=== PATIENT | female | born 1960 ===

== ENCOUNTER 2017-05-28 09:49 | Emergency (ER) | payer MEDICARE ==
[2017-05-28 09:56] VITALS: RESP 18; O2SAT 96
[2017-05-28] MEDS ORDERED: Tmp-Smz 800 mg-160 mg DS Tab PO SCH (10:30)
--- NOTE | 2017-05-28 10:37 | C.PDOC ---
History Of Present Illness Jo Ann Renee, a 56 year old female, who has a past medical history of diabetes presents to the ED with a scratch on the back of her right calf. The patient states that the scratch has been draining yellow fluid. She states that she is currently taking insulin for diabetes. Denies fever. Time Seen by Provider: 05/28/17 10:07 Chief Complaint (Nursing): Abnormal Skin Integrity History Per: Patient History/Exam Limitations: no limitations Onset/Duration Of Symptoms: Days Quality Of Symptoms: Draining (draining yellow fluid.) Past Medical History Reviewed: Historical Data, Nursing Documentation, Vital Signs Vital Signs: Last Vital Signs Temp 97.8 F 05/28/17 11:00 Pulse 77 05/28/17 11:00 Resp 18 05/28/17 11:00 BP 134/83 05/28/17 11:00 Pulse Ox 96 05/28/17 17:06 - Medical History PMH: Anemia, Anxiety, Arthritis, Asthma, COPD, Depression, Diabetes (type I and II, associated diabetic neuropathy), Gastritis, HTN, Hypercholesterolemia, Hyperlipidemia, Hypothyroidism, Malignancy (Thyroid), Rheumatoid Arthritis, Sleep Apnea Denies: HIV, Chronic Kidney Disease Surgical History: Coronary Stent Other Surgeries: Toe amputations due to diabetes. - [facility] Procedures AMPUTATION THROUGH FOOT (05/13/15) ANGIOPLASTY OF OTHER NON-CORONARY VESSEL(S) (03/25/15) ATTACH PEDICLE GRAFT NEC (05/13/15) CONTRAST ARTERIOGRAM-LEG (03/25/15) DETACHMENT AT LEFT FOOT, PARTIAL 1ST RAY, OPEN APPROACH (11/04/15) DETACHMENT AT LEFT FOOT, PARTIAL 2ND RAY, OPEN APPROACH (11/04/15) DETACHMENT AT LEFT FOOT, PARTIAL 3RD RAY, OPEN APPROACH (11/04/15) DETACHMENT AT LEFT FOOT, PARTIAL 4TH RAY, OPEN APPROACH (11/04/15) DETACHMENT AT LEFT FOOT, PARTIAL 5TH RAY, OPEN APPROACH (11/04/15) EXCISION OF LEFT FOOT SKIN, EXTERNAL APPROACH (07/04/15) EXCISION OF R FOOT SUBCU/FASCIA, OPEN APPROACH (07/04/15) EXERCISE TRMT MUSCULOSK LOW BACK/LE W ASSIST EQUIP (10/28/15) FLUOROSCOPY OF AORTA AND BILATERAL LOWER EXTREMITY ARTERIES (07/04/15) FLUOROSCOPY OF SUP VENA CAVA USING OTH CONTRAST, GUIDANCE (09/28/15) FLUOROSCOPY OF SUPERIOR VENA CAVA, GUIDANCE (11/04/15) GAIT TRAINING/AMBULAT TREATMENT USING ASSIST EQUIPMENT (10/28/15) GROOMING/PERSONAL HYGIENE TREATMENT USING ASSIST EQUIPMENT (10/28/15) INJECT/INFUSE NEC (07/01/15) INSERTION OF INFUSION DEV INTO SUP VENA CAVA, PERC APPROACH (11/04/15) INTRODUCE OTH ANTI-INFECT IN CENTRAL VEIN, PERC (11/04/15) INTRODUCE REGIONAL ANESTH IN PERIPH NRV, PLEXI, PERC (07/04/15) INTRODUCTION OF SERUM/TOX/VACCINE INTO MUSCLE, PERC APPROACH (09/28/15) OCCUPATIONAL THERAPY (05/20/15) PACKED CELL TRANSFUSION (05/13/15) PHYSICAL THERAPY NEC (05/20/15) PROCEDURE ON SINGLE VESSEL (03/25/15) REPLACE R FOOT SKIN W NONAUT SUB, FULL THICK, 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 Constitutional: Negative for: Fever Musculoskeletal: Positive for: Other (scratch to the back of right calf that is draining yellow fluid) Physical Exam - Physical Exam Appears: Well (superficial abrasion right lower calf, (-) erythema, (-) drainage ), Non-toxic, No Acute Distress Skin: Normal Color, Warm, Dry, No Rash, Other (abrasion right lower l) Head: Atraumatic, Normacephalic Eye(s): bilateral: Normal Inspection, PERRL, EOMI Nose: Normal Oral Mucosa: Moist Tongue: Normal Appearing Lips: Normal Appearing Teeth: Normal Dentition Gingiva: Normal Appearing Throat: Normal Neck: Normal, Normal ROM, Supple Chest: Symmetrical, No Deformity, No Tenderness Cardiovascular: Rhythm Regular, No Murmur Respiratory: Normal Breath Sounds, No Rhonchi, No Wheezing Gastrointestinal/Abdominal: Normal Exam, Bowel Sounds, Soft, No Tenderness, No Mass, No Guarding, No Rebound Back: Normal Inspection, No CVA Tenderness Extremity: Normal ROM, No Tenderness, No Deformity, No Swelling, Other (3cm superficial abrasion to right calf; no erythema or sign of infection; no drainage.) Neurological/Psych: Oriented x3, Normal Speech, Normal Cognition Gait: Steady ED Course And Treatment O2 Sat by Pulse Oximetry: 96 (RA) Pulse Ox Interpretation: Normal Progress Note: Treated with bactrim DS x1. Advised to follow up for wound check in 2 days Reassessment Condition: Unchanged Medical Decision Making Medical Decision Makin Initial Impression: 46 year old female presenting with scratch to the back of right leg Initial Plan: * Bactrim DS 1 tab PO * Glucose, Blood, POC * Reevaluation Levaquin and penicillin given Disposition Counseled Patient/Family Regarding: Diagnosis, Need For Followup, Rx Given - Disposition Referrals: Gi Badillo MD [Medical Doctor] - Disposition: HOME/ ROUTINE Disposition Time: 11:10 Condition: STABLE Additional Instructions: Follow up with PMD for further evaluation Return to ED if any increase symptoms Prescriptions: Sulfamethoxazole/Trimethoprim [Bactrim DS 800 mg-160 mg] 1 tab PO BID #14 tab Instructions: Abrasion (ED) Forms: [employer] (Irish) - POA Present On Arrival: None - Clinical Impression Clinical Impression: Abrasion, Diabetes - Scribe Statement The provider has reviewed the documentation as recorded by the Scribe Ginna Soliman All medical record entries made by the Lisaibe were at my direction and personally dictated by me. I have reviewed the chart and agree that the record accurately reflects my personal performance of the history, physical exam, medical decision making, and the department course for this patient. I have also personally directed, reviewed, and agree with the discharge instructions and disposition.
[2017-05-28] MEDS ORDERED: Tmp-Smz 800 mg-160 mg DS Tab ONE (10:57)
[2017-05-28 11:01] VITALS: BP 134/83; PULSE 77; TEMP 97.8
== END 2017-05-28 11:17 | disposition home or self-care (01) ==
LOC: C.ER 09:49
DX: S80.811A Abrasion, right lower leg, initial encounter (principal); X58.XXXA Exposure to other specified factors, initial encounter; E11.9 Type 2 diabetes mellitus without complications; Z79.4 Long term (current) use of insulin

== ENCOUNTER 2017-08-12 14:23 | Emergency (ER) | payer MEDICARE ==
[2017-08-12 14:42] VITALS: RESP 18; TEMP 98.1
[2017-08-12] MEDS ORDERED: Sodium Chloride 0.9% 1,000 ML IV STA (15:05)
--- NOTE | 2017-08-12 15:06 | C.PDOC ---
History Of Present Illness 56 y/o F c PMHx DM, anemia, COPD, HTN, HLD, hypothyroidism, RA p/w subjective fevers/chills, nausea, NBNB vomiting, sneezing, nonbloody diarrhea x 2 days. Notes received flu shot 6 days ago, had a similar reaction last year after influenza vaccine. Denies cough, dyspnea, abdominal pain, body aches, dysuria, back pain, rash. No recent travel, antibiotics, or camping/hiking. Time Seen by Provider: 08/12/17 14:59 Chief Complaint (Nursing): Flu-like Symptoms Past Medical History Vital Signs: Last Vital Signs Temp 98.1 F 08/12/17 14:30 Pulse 89 08/12/17 16:36 Resp 18 08/12/17 16:36 BP 155/86 H 08/12/17 16:36 Pulse Ox 97 08/12/17 16:36 - Medical History PMH: Anemia, Anxiety, Arthritis, Asthma, COPD, Depression, Diabetes (type I and II, associated diabetic neuropathy), Gastritis, HTN, Hypercholesterolemia, Hyperlipidemia, Hypothyroidism, Malignancy (Thyroid), Rheumatoid Arthritis, Sleep Apnea Denies: HIV, Chronic Kidney Disease Surgical History: Coronary Stent - [facility] Procedures AMPUTATION THROUGH FOOT (05/13/15) ANGIOPLASTY OF OTHER NON-CORONARY VESSEL(S) (03/25/15) ATTACH PEDICLE GRAFT NEC (05/13/15) CONTRAST ARTERIOGRAM-LEG (03/25/15) DETACHMENT AT LEFT FOOT, PARTIAL 1ST RAY, OPEN APPROACH (11/04/15) DETACHMENT AT LEFT FOOT, PARTIAL 2ND RAY, OPEN APPROACH (11/04/15) DETACHMENT AT LEFT FOOT, PARTIAL 3RD RAY, OPEN APPROACH (11/04/15) DETACHMENT AT LEFT FOOT, PARTIAL 4TH RAY, OPEN APPROACH (11/04/15) DETACHMENT AT LEFT FOOT, PARTIAL 5TH RAY, OPEN APPROACH (11/04/15) EXCISION OF LEFT FOOT SKIN, EXTERNAL APPROACH (07/04/15) EXCISION OF R FOOT SUBCU/FASCIA, OPEN APPROACH (07/04/15) EXERCISE TRMT MUSCULOSK LOW BACK/LE W ASSIST EQUIP (10/28/15) FLUOROSCOPY OF AORTA AND BILATERAL LOWER EXTREMITY ARTERIES (07/04/15) FLUOROSCOPY OF SUP VENA CAVA USING OTH CONTRAST, GUIDANCE (09/28/15) FLUOROSCOPY OF SUPERIOR VENA CAVA, GUIDANCE (11/04/15) GAIT TRAINING/AMBULAT TREATMENT USING ASSIST EQUIPMENT (10/28/15) GROOMING/PERSONAL HYGIENE TREATMENT USING ASSIST EQUIPMENT (10/28/15) INJECT/INFUSE NEC (07/01/15) INSERTION OF INFUSION DEV INTO SUP VENA CAVA, PERC APPROACH (11/04/15) INTRODUCE OTH ANTI-INFECT IN CENTRAL VEIN, PERC (11/04/15) INTRODUCE REGIONAL ANESTH IN PERIPH NRV, PLEXI, PERC (07/04/15) INTRODUCTION OF SERUM/TOX/VACCINE INTO MUSCLE, PERC APPROACH (09/28/15) OCCUPATIONAL THERAPY (05/20/15) PACKED CELL TRANSFUSION (05/13/15) PHYSICAL THERAPY NEC (05/20/15) PROCEDURE ON SINGLE VESSEL (03/25/15) REPLACE R FOOT SKIN W NONAUT SUB, FULL THICK, 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 Cardiovascular: Negative for: Chest Pain Respiratory: Negative for: Shortness of Breath Physical Exam - Physical Exam Additional Physical Exam Comments: Constitutional: No acute distress. Head: Normocephalic. Atraumatic. Eyes: PERRL. ENT: Moist mucous membranes. Neck: Supple. Cardiovascular: Regular rate. Radial pulse 2+ bilaterally. Chest: No tenderness. Respiratory: Clear to auscultation bilaterally. GI: Soft. Nontender. Nondistended. Back: No CVA tenderness. Musculoskeletal: No tenderness or swelling of extremities. Skin: No rash. Neurologic: Alert, no focal deficit. ED Course And Treatment - Laboratory Results Result Diagrams: 08/12/17 14:57 08/12/17 14:57 O2 Sat by Pulse Oximetry: 99 (RA) Pulse Ox Interpretation: Normal Medical Decision Making Medical Decision Making: Patient with UTI. Otherwise, labs unremarkable, no DKA, lactate negative. Will discharge on antibiotics. Instructed to f/u primary care, instructed to return to ED for worsening pain, fever, dyspnea, vomiting, or any other problem. Disposition - Disposition Disposition: HOME/ ROUTINE Disposition Time: 17:06 Condition: STABLE Prescriptions: Nitrofurantoin Macrocrystals [Macrobid] 100 mg PO BID #20 cap Ondansetron ODT [Zofran ODT] 4 mg PO Q8 #12 odt Instructions: Urinary Tract Infection in Women (ED) Forms: [employer] (Slovak) - Clinical Impression Clinical Impression: Influenza-like illness, UTI (urinary tract infection)
[2017-08-12 15:14] LABS: CHLORIDE 99 mmol/L (98-107)
[2017-08-12 15:15] LABS: POTASSIUM 4.1 mmol/L (3.6-5.2); SODIUM 135 mmol/L (132-148)
[2017-08-12 15:17] LABS: ALB/GLOB RATIO 1.5 (1.0-2.1); ALKALINE PHOSPHATASE 93 U/L (38-126); AST/SGOT 22 U/L (14-36); BILIRUBIN,TOTAL 0.8 mg/dL (0.2-1.3); BLOOD UREA NITROGEN 19 mg/dL (7-17); CARBON DIOXIDE 24 mmol/L (22-30); GFR AFRICAN-AMERICAN > 60; GLUCOSE,RANDOM 251 mg/dL (65-105); TOTAL PROTEIN 7.6 g/dL (6.3-8.3)
[2017-08-12 15:18] LABS: ALT/SGPT 35 U/L (9-52); CALCIUM 9.5 mg/dl (8.6-10.4)
[2017-08-12] MEDS ORDERED: Sodium Chloride 0.9% 1,000 ML ONE (15:44)
[2017-08-12 15:46] LABS: VENOUS BLOOD GAS BASE EXCESS 1.7 mmol/L (0.0-2.0); VENOUS BLOOD GAS PCO2 48 mmHg (40-60); VENOUS BLOOD PH 7.37 (7.32-7.43)
[2017-08-12 15:47] LABS: BASO % 0.7 % (0.0-2.0); EOS # 0.2 K/uL (0.0-0.7); EOS % 3.2 % (0.0-4.0); HEMATOCRIT 36.1 % (34.0-47.0); LYMPH # 1.1 K/uL (1.0-4.3); LYMPH % 18.8 % (20.0-40.0); MEAN CELL VOLUME 90.8 fL (81.0-99.0); MEAN CORPUSCULAR HGB CONC 33.1 g/dL (33.0-37.0); MEAN PLATELET VOLUME 10.5 fL (7.2-11.7); MONO # 0.4 K/uL (0.0-0.8); MONO % 7.6 % (0.0-10.0); RED CELL DISTRIBUTION WIDTH 14.3 % (11.5-14.5); WHITE BLOOD COUNT 5.8 K/uL (4.8-10.8)
[2017-08-12 16:25] LABS: RBC URINE 4 /hpf (0-3); TRANSITIONAL EPITHIAL 1 /hpf (0-3); URINE BACTERIA OCC (<OCC); URINE BILIRUBIN NEGATIVE (NEGATIVE); URINE BLOOD 1+ (NEGATIVE); URINE COLOR Yellow (YELLOW); URINE GLUCOSE (UA) 1+ mg/dL (Normal); URINE HYALINE CAST >20 /lpf (0-2); URINE KETONE TRACE mg/dL (NEGATIVE); URINE LEUKOCYTE ESTERASE 1+ Leu/uL (Negative); URINE PROTEIN 2+ mg/dL (NEGATIVE); URINE UROBILINOGEN NORMAL mg/dL (0.2-1.0); WBC URINE 9 /hpf (0-5)
--- NOTE | 2017-08-12 16:26 | RAD ---
HISTORY: chills COMPARISON: Comparison chest 03/25/2015 FINDINGS: LUNGS: No active pulmonary disease. PLEURA: No significant pleural effusion identified, no pneumothorax apparent. CARDIOVASCULAR: Normal. OSSEOUS STRUCTURES: No significant abnormalities. VISUALIZED UPPER ABDOMEN: Normal. OTHER FINDINGS: None. IMPRESSION: No acute infiltrates.
[2017-08-12 16:37] VITALS: BP 155/86; PULSE 89
[2017-08-12 17:07] VITALS: O2SAT 99
== END 2017-08-12 17:30 | disposition home or self-care (01) ==
LOC: C.ER 14:23
DX: J11.1 Influenza due to unidentified influenza virus with other respiratory manifestations (principal); N39.0 Urinary tract infection, site not specified
CPT/HCPCS: 71010; 80053; 81001; 82009; 82803; 83690; 84703; 85025; 87804; 96361; 96374; 96375; 99285; J1885; J2405; J7040

== ENCOUNTER 2017-09-12 07:45 | Emergency (ER) | payer MEDICARE ==
[2017-09-12] MEDS ORDERED: Sodium Chloride 0.9% 1,000 ML IV ONE (08:29)
[2017-09-12 09:16] LABS: BASO # 0.1 K/uL (0.0-0.2); BASO % 0.6 % (0.0-2.0); EOS # 0.3 K/uL (0.0-0.7); EOS % 2.8 % (0.0-4.0); HEMATOCRIT 40.3 % (34.0-47.0); LYMPH # 2.3 K/uL (1.0-4.3); LYMPH % 21.4 % (20.0-40.0); MEAN CELL VOLUME 89.7 fL (81.0-99.0); MEAN CORPUSCULAR HEMOGLOBIN 29.8 pg (27.0-31.0); MEAN CORPUSCULAR HGB CONC 33.2 g/dL (33.0-37.0); MEAN PLATELET VOLUME 10.7 fL (7.2-11.7); MONO # 0.7 K/uL (0.0-0.8); MONO % 6.7 % (0.0-10.0); NRBC % 0.2 % (0.0-2.0); RED CELL DISTRIBUTION WIDTH 13.9 % (11.5-14.5)
[2017-09-12 09:17] LABS: WHITE BLOOD COUNT 10.9 K/uL (4.8-10.8)
[2017-09-12 09:19] LABS: GRANULAR CAST 16 /lpf (0-1); RBC URINE 21 /hpf (0-3); URINE BACTERIA RARE (<OCC); URINE BILIRUBIN NEGATIVE (NEGATIVE); URINE COLOR Yellow (YELLOW); URINE GLUCOSE (UA) NORMAL (Normal); URINE KETONE NEGATIVE (NEGATIVE); URINE LEUKOCYTE ESTERASE 3+ Leu/uL (Negative); URINE PROTEIN 1+ mg/dL (NEGATIVE); URINE UROBILINOGEN NORMAL mg/dL (0.2-1.0); WBC URINE 50 /hpf (0-5)
[2017-09-12 09:20] LABS: URINE BLOOD 1+ (NEGATIVE)
[2017-09-12 09:39] LABS: CALCIUM 8.7 mg/dl (8.6-10.4); POTASSIUM 4.3 mmol/L (3.6-5.2); TOTAL PROTEIN 8.1 g/dL (6.3-8.3)
--- NOTE | 2017-09-12 10:49 | C.PDOC ---
History Of Present Illness 56 yr old female presents to the ER with complaints of multiple episodes of diarrhea for the past 3 days. Patient also reports of generalized weakness and states she passed out yesterday. Patient also reports of abdominal cramping. Patient reports she was on antibiotic 1 month ago for a UTI. Patient denies fever, chills, nausea, vomiting, dysuria, incontinence or hematuria. Time Seen by Provider: 09/12/17 08:07 Chief Complaint (Nursing): GI Problem History Per: Patient History/Exam Limitations: no limitations Onset/Duration Of Symptoms: Days (3) Current Symptoms Are (Timing): Still Present Past Medical History Reviewed: Historical Data, Nursing Documentation, Vital Signs Vital Signs: Last Vital Signs Temp 98.0 F 09/12/17 11:10 Pulse 81 09/12/17 11:10 Resp 18 09/12/17 11:10 BP 134/85 09/12/17 11:10 Pulse Ox 99 09/12/17 11:27 - Medical History PMH: Anemia, Anxiety, Arthritis, Asthma, COPD, Depression, Diabetes (type I and II, associated diabetic neuropathy), Gastritis, HTN, Hypercholesterolemia, Hyperlipidemia, Hypothyroidism, Malignancy (Thyroid), Rheumatoid Arthritis, Sleep Apnea Surgical History: Coronary Stent - [facility] Procedures AMPUTATION THROUGH FOOT (05/13/15) ANGIOPLASTY OF OTHER NON-CORONARY VESSEL(S) (03/25/15) ATTACH PEDICLE GRAFT NEC (05/13/15) CONTRAST ARTERIOGRAM-LEG (03/25/15) DETACHMENT AT LEFT FOOT, PARTIAL 1ST RAY, OPEN APPROACH (11/04/15) DETACHMENT AT LEFT FOOT, PARTIAL 2ND RAY, OPEN APPROACH (11/04/15) DETACHMENT AT LEFT FOOT, PARTIAL 3RD RAY, OPEN APPROACH (11/04/15) DETACHMENT AT LEFT FOOT, PARTIAL 4TH RAY, OPEN APPROACH (11/04/15) DETACHMENT AT LEFT FOOT, PARTIAL 5TH RAY, OPEN APPROACH (11/04/15) EXCISION OF LEFT FOOT SKIN, EXTERNAL APPROACH (07/04/15) EXCISION OF R FOOT SUBCU/FASCIA, OPEN APPROACH (07/04/15) EXERCISE TRMT MUSCULOSK LOW BACK/LE W ASSIST EQUIP (10/28/15) FLUOROSCOPY OF AORTA AND BILATERAL LOWER EXTREMITY ARTERIES (07/04/15) FLUOROSCOPY OF SUP VENA CAVA USING OTH CONTRAST, GUIDANCE (09/28/15) FLUOROSCOPY OF SUPERIOR VENA CAVA, GUIDANCE (11/04/15) GAIT TRAINING/AMBULAT TREATMENT USING ASSIST EQUIPMENT (10/28/15) GROOMING/PERSONAL HYGIENE TREATMENT USING ASSIST EQUIPMENT (10/28/15) INJECT/INFUSE NEC (07/01/15) INSERTION OF INFUSION DEV INTO SUP VENA CAVA, PERC APPROACH (11/04/15) INTRODUCE OTH ANTI-INFECT IN CENTRAL VEIN, PERC (11/04/15) INTRODUCE REGIONAL ANESTH IN PERIPH NRV, PLEXI, PERC (07/04/15) INTRODUCTION OF SERUM/TOX/VACCINE INTO MUSCLE, PERC APPROACH (09/28/15) OCCUPATIONAL THERAPY (05/20/15) PACKED CELL TRANSFUSION (05/13/15) PHYSICAL THERAPY NEC (05/20/15) PROCEDURE ON SINGLE VESSEL (03/25/15) REPLACE R FOOT SKIN W NONAUT SUB, FULL THICK, 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 Constitutional: Negative for: Fever, Chills Gastrointestinal: Positive for: Abdominal Pain (Abdominal cramping), Diarrhea. Negative for: Nausea, Vomiting Genitourinary: Negative for: Dysuria, Incontinence, Hematuria Physical Exam - Physical Exam Appears: Non-toxic, In Acute Distress (Mildly uncomfortable) Skin: Warm, Dry, No Rash Head: Atraumatic, Normacephalic Oral Mucosa: Moist Cardiovascular: Rhythm Regular, Other ((+) Tachy) Respiratory: Normal Breath Sounds, No Rales, No Rhonchi, No Stridor, No Wheezing Gastrointestinal/Abdominal: Normal Exam, Soft, No Tenderness, No Guarding, No Rebound Back: Normal Inspection, No CVA Tenderness Extremity: Normal ROM, No Swelling Neurological/Psych: Oriented x3, Normal Speech, Normal Motor, Normal Sensation ED Course And Treatment - Laboratory Results Result Diagrams: 09/12/17 09:04 09/12/17 09:04 ECG: Interpreted By Me, Viewed By Me ECG Rhythm: Sinus Rhythm Interpretation Of ECG: Left axis deviation. LVH. No acute ST/T wave changes. Rate From EC (BPM) O2 Sat by Pulse Oximetry: 99 (RA) Pulse Ox Interpretation: Normal - CT Scan/US CT - Abd & Pelvis Other Rad Studies (CT/US): Read By Radiologist, Radiology Report Reviewed CT/US Interpretation: PROCEDURE: CT Abdomen and Pelvis without intravenous contrast. HISTORY: ELEVATED LIPASE, ABD PAIN, DIARRHEA. COMPARISON: None. TECHNIQUE: Axial and reformatted coronal and sagittal CT images of the abdomen and pelvis were obtained without IV or oral contrast administration.. Contrast Dose: 0. Radiation dose: Total exam DLP = 838.97 mGy-cm. This CT exam was performed using one or more of the following dose reduction techniques: Automated exposure control, adjustment of the mA and/or kV according to patient size, and/or use of iterative reconstruction technique. FINDINGS: LOWER THORAX : Unremarkable. LIVER: Unremarkable. No gross lesion or ductal dilatation. GALLBLADDER AND BILE DUCTS: Unremarkable. PANCREAS: Unremarkable. No gross lesion or ductal dilatation. SPLEEN: Unremarkable. ADRENALS: Unremarkable. No mass. KIDNEYS AND URETERS: Punctate calcifications are noted in both kidneys likely vascular calcification. No evidence of significant hydronephrosis no evidence of obstructing stone. Bilateral nonspecific mild perinephric stranding is noted. The ureters are not dilated. VASCULATURE: Unremarkable. No aortic aneurysm. BOWEL: The large bowel is not distended therefore cannot be evaluated. The possibility of mild colitis is not totally excluded. No obstruction. No evidence of pneumatosis. APPENDIX: Unremarkable. Normal appendix. PERITONEUM: Unremarkable. No free fluid. No free air. LYMPH NODES: Unremarkable. No enlarged lymph nodes. BLADDER: Unremarkable. REPRODUCTIVE: There is heterogeneous mass lesion at the right adnexa contains fat and calcification measures 5.5 x 5.5 centimeter likely represent dermoid cyst/ teratoma. The uterus is otherwise unremarkable. The left adnexa is unremarkable. BONES: No acute fracture. OTHER FINDINGS: There is diffuse medium and small size vascular calcification noted in the abdomen and pelvis. IMPRESSION: No CT evidence of cholecystitis pancreatitis or appendicitis. Nonspecific mild perinephric stranding. No evidence of obstructing calculi. Vascular calcifications are noted in both kidneys. Mild large bowel wall thickening versus incomplete distention. 5.5 x 5.5 centimeter complex mass at the right adnexa with shape and density suggestive of teratoma. Progress Note: PLAN: CT - Abd & Pelvis, EKG, Labs, Urinalysis, Bentyl PO & Sodium Chloride IV. Pateint lipase was found to be elevated and CAT scan for pancreatitis and will reassess the patient. 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 AND GI WITHIN 1 WEEK DRINK PLENTY OF CLEAR FLUIDS ADVANCE TO BLAND DIET SLOWLY RETURN TO ER IF SYMPTOMS WORSEN Prescriptions: Dicyclomine [Bentyl] 20 mg PO Q6 PRN #15 tab PRN Reason: ABDOMINAL CRAMPING Instructions: Acute Diarrhea (ED) Forms: [employer] (Lao) Print Language: SERBIAN - POA Present On Arrival: None - Clinical Impression Clinical Impression: Teratoma of ovary, Diarrhea, Elevated lipase, Renal insufficiency - Scribe Statement The provider has reviewed the documentation as recorded by the Lisaibdonny Levine Provider Attestation: All medical record entries made by the Lisaibdonny were at my direction and personally dictated by me. I have reviewed the chart and agree that the record accurately reflects my personal performance of the history, physical exam, medical decision making, and the department course for this patient. I have also personally directed, reviewed, and agree with the discharge instructions and disposition.
[2017-09-12 11:11] VITALS: BP 134/85; PULSE 81; RESP 18; TEMP 98
--- NOTE | 2017-09-12 11:12 | CT ---
PROCEDURE: CT Abdomen and Pelvis without intravenous contrast HISTORY: ELEVATED LIPASE, ABD PAIN, DIARRHEA COMPARISON: None. TECHNIQUE: Axial and reformatted coronal and sagittal CT images of the abdomen and pelvis were obtained without IV or oral contrast administration.. Contrast Dose: 0 Radiation dose: Total exam DLP = 838.97 mGy-cm. This CT exam was performed using one or more of the following dose reduction techniques: Automated exposure control, adjustment of the mA and/or kV according to patient size, and/or use of iterative reconstruction technique. FINDINGS: LOWER THORAX: Unremarkable. LIVER: Unremarkable. No gross lesion or ductal dilatation. GALLBLADDER AND BILE DUCTS: Unremarkable. PANCREAS: Unremarkable. No gross lesion or ductal dilatation. SPLEEN: Unremarkable. ADRENALS: Unremarkable. No mass. KIDNEYS AND URETERS: Punctate calcifications are noted in both kidneys likely vascular calcification. No evidence of significant hydronephrosis no evidence of obstructing stone. Bilateral nonspecific mild perinephric stranding is noted. The ureters are not dilated. VASCULATURE: Unremarkable. No aortic aneurysm. BOWEL: The large bowel is not distended therefore cannot be evaluated. The possibility of mild colitis is not totally excluded. No obstruction. No evidence of pneumatosis. APPENDIX: Unremarkable. Normal appendix. PERITONEUM: Unremarkable. No free fluid. No free air. LYMPH NODES: Unremarkable. No enlarged lymph nodes. BLADDER: Unremarkable. REPRODUCTIVE: There is heterogeneous mass lesion at the right adnexa contains fat and calcification measures 5.5 x 5.5 centimeter likely represent dermoid cyst/ teratoma. The uterus is otherwise unremarkable. The left adnexa is unremarkable. BONES: No acute fracture. OTHER FINDINGS: There is diffuse medium and small size vascular calcification noted in the abdomen and pelvis. IMPRESSION: No CT evidence of cholecystitis pancreatitis or appendicitis. Nonspecific mild perinephric stranding. No evidence of obstructing calculi. Vascular calcifications are noted in both kidneys. Mild large bowel wall thickening versus incomplete distention. 5.5 x 5.5 centimeter complex mass at the right adnexa with shape and density suggestive of teratoma.
[2017-09-12 11:25] VITALS: O2SAT 99
== END 2017-09-12 11:44 | disposition home or self-care (01) ==
LOC: C.ER 07:45
DX: N28.9 Disorder of kidney and ureter, unspecified (principal); R74.8 Abnormal levels of other serum enzymes; D27.0 Benign neoplasm of right ovary; R19.7 Diarrhea, unspecified; I10 Essential (primary) hypertension; E11.40 Type 2 diabetes mellitus with diabetic neuropathy, unspecified
CPT/HCPCS: 74176; 80053; 81001; 82948; 83690; 85025; 96360; 99284; J7040

== ENCOUNTER 2017-09-14 04:10 | Inpatient (IN) | payer MEDICARE ==
[2017-09-14] MEDS ORDERED: Sodium Chloride 0.9% 500 ML IV ONE (04:35)
[2017-09-14] MEDS ORDERED: Sodium Chloride 0.9% 1,000 ML IV ONE (04:36)
--- NOTE | 2017-09-14 04:46 | C.PDOC ---
History Of Present Illness 56 year old female with a Hx of diabetes presents to the ER with a complaint of abdominal pain and vomiting for the past 2 days. Patient was seen yesterday for similar symptoms and given motrin for the pain. Denies fever or chills. Chief Complaint (Nursing): Abdominal Pain History Per: Patient History/Exam Limitations: no limitations Onset/Duration Of Symptoms: Days Current Symptoms Are (Timing): Still Present Radiation Of Pain To:: None Quality Of Discomfort: Unable To Describe Associated Symptoms: Vomiting. denies: Fever, Chills Exacerbating Factors: None Alleviating Factors: None Recent travel outside of the [place]: No Abnormal Vaginal Bleeding: No Past Medical History Reviewed: Historical Data, Nursing Documentation, Vital Signs Vital Signs: Last Vital Signs Temp 97.8 F 09/14/17 05:41 Pulse 82 09/14/17 05:41 Resp 20 09/14/17 05:41 BP 163/80 H 09/14/17 05:41 Pulse Ox 96 09/14/17 05:41 - Medical History PMH: Anemia, Anxiety, Arthritis, Asthma, COPD, Depression, Diabetes (type I and II, associated diabetic neuropathy), Gastritis, HTN, Hypercholesterolemia, Hyperlipidemia, Hypothyroidism, Malignancy (Thyroid), Rheumatoid Arthritis, Sleep Apnea Surgical History: Coronary Stent - [facility] AMPUTATION THROUGH FOOT (05/13/15) ANGIOPLASTY OF OTHER NON-CORONARY VESSEL(S) (03/25/15) ATTACH PEDICLE GRAFT NEC (05/13/15) CONTRAST ARTERIOGRAM-LEG (03/25/15) DETACHMENT AT LEFT FOOT, PARTIAL 1ST RAY, OPEN APPROACH (11/04/15) DETACHMENT AT LEFT FOOT, PARTIAL 2ND RAY, OPEN APPROACH (11/04/15) DETACHMENT AT LEFT FOOT, PARTIAL 3RD RAY, OPEN APPROACH (11/04/15) DETACHMENT AT LEFT FOOT, PARTIAL 4TH RAY, OPEN APPROACH (11/04/15) DETACHMENT AT LEFT FOOT, PARTIAL 5TH RAY, OPEN APPROACH (11/04/15) EXCISION OF LEFT FOOT SKIN, EXTERNAL APPROACH (07/04/15) EXCISION OF R FOOT SUBCU/FASCIA, OPEN APPROACH (07/04/15) EXERCISE TRMT MUSCULOSK LOW BACK/LE W ASSIST EQUIP (10/28/15) FLUOROSCOPY OF AORTA AND BILATERAL LOWER EXTREMITY ARTERIES (07/04/15) FLUOROSCOPY OF SUP VENA CAVA USING OTH CONTRAST, GUIDANCE (09/28/15) FLUOROSCOPY OF SUPERIOR VENA CAVA, GUIDANCE (11/04/15) GAIT TRAINING/AMBULAT TREATMENT USING ASSIST EQUIPMENT (10/28/15) GROOMING/PERSONAL HYGIENE TREATMENT USING ASSIST EQUIPMENT (10/28/15) INJECT/INFUSE NEC (07/01/15) INSERTION OF INFUSION DEV INTO SUP VENA CAVA, PERC APPROACH (11/04/15) INTRODUCE OTH ANTI-INFECT IN CENTRAL VEIN, PERC (11/04/15) INTRODUCE REGIONAL ANESTH IN PERIPH NRV, PLEXI, PERC (07/04/15) INTRODUCTION OF SERUM/TOX/VACCINE INTO MUSCLE, PERC APPROACH (09/28/15) OCCUPATIONAL THERAPY (05/20/15) PACKED CELL TRANSFUSION (05/13/15) PHYSICAL THERAPY NEC (05/20/15) PROCEDURE ON SINGLE VESSEL (03/25/15) REPLACE R FOOT SKIN W NONAUT SUB, FULL THICK, ORE STORAGE DRIER (07/04/15) TOE AMPUTATION (03/25/15) TRANSFUSE NONAUT RED BLOOD CELLS IN PERIPH VEIN, PERC (09/28/15) Family History: States: Unknown Family Hx - Social History Hx Tobacco Use: No Hx Alcohol Use: No Hx Substance Use: No - Immunization History Hx Tetanus Toxoid Vaccination: No Hx Influenza Vaccination: Yes (08/07/17) Hx Pneumococcal Vaccination: No (2011) Review Of Systems Constitutional: Negative for: Fever, Chills Gastrointestinal: Positive for: Vomiting, Abdominal Pain Physical Exam - Physical Exam Appears: Non-toxic, Other (Actively vomiting) Skin: Normal Color, Warm, Dry Head: Atraumatic, Normacephalic Eye(s): bilateral: Normal Inspection Oral Mucosa: Moist Chest: Symmetrical Cardiovascular: Rhythm Regular Respiratory: Normal Breath Sounds, No Rales, No Rhonchi, No Wheezing Gastrointestinal/Abdominal: Soft, Tenderness (Bilateral upper quadrants), No Guarding, No Rebound Neurological/Psych: Oriented x3, Normal Speech, Other (No focal deficits) ED Course And Treatment - Laboratory Results Result Diagrams: 09/14/17 04:49 09/14/17 04:49 O2 Sat by Pulse Oximetry: 96 (Room air) Pulse Ox Interpretation: Normal Progress Note: Blood work and urinalysis ordered. Bentyl, toradol, zofran, and IV fluids administered. Disposition Discussed With : Ren Colvin Doctor Will See Patient In The: Hospital Counseled Patient/Family Regarding: Diagnosis - Disposition Disposition: HOSPITALIZED Disposition Time: 06:47 Condition: STABLE Forms: [facility] (Irish) - POA Present On Arrival: None - Clinical Impression Clinical Impression: Abdominal pain, Vomiting, Acute pancreatitis, Renal insufficiency - Scribe Statement The provider has reviewed the documentation as recorded by the Scribe Jose Foley All medical record entries made by the Scribe were at my direction and personally dictated by me. I have reviewed the chart and agree that the record accurately reflects my personal performance of the history, physical exam, medical decision making, and the department course for this patient. I have also personally directed, reviewed, and agree with the discharge instructions and disposition.
[2017-09-14 04:52] LABS: BASO # 0.1 K/uL (0.0-0.2)
[2017-09-14] MEDS ORDERED: Sodium Chloride 0.9% 1,000 ML ONE (05:01)
[2017-09-14 05:03] LABS: POTASSIUM 5.4 mmol/L (3.6-5.2)
[2017-09-14 05:10] LABS: BASO % 0.5 % (0.0-2.0); EOS # 0.3 K/uL (0.0-0.7); EOS % 3.3 % (0.0-4.0); HEMATOCRIT 39.9 % (34.0-47.0); LYMPH # 2.1 K/uL (1.0-4.3); MEAN CELL VOLUME 90.1 fL (81.0-99.0); MEAN CORPUSCULAR HEMOGLOBIN 29.4 pg (27.0-31.0); MEAN CORPUSCULAR HGB CONC 32.7 g/dL (33.0-37.0); MEAN PLATELET VOLUME 10.7 fL (7.2-11.7); MONO # 0.7 K/uL (0.0-0.8); MONO % 6.4 % (0.0-10.0); RED CELL DISTRIBUTION WIDTH 13.7 % (11.5-14.5); WHITE BLOOD COUNT 10.4 K/uL (4.8-10.8)
[2017-09-14 05:55] LABS: ALB/GLOB RATIO 1.1 (1.0-2.1); BILIRUBIN,TOTAL 1.3 mg/dL (0.2-1.3); CALCIUM 8.8 mg/dl (8.6-10.4); TOTAL PROTEIN 8.1 g/dL (6.3-8.3)
[2017-09-14 06:39] LABS: ABG ALLEN TEST POS; ARTERIAL BLOOD HGB O2 SAT 93.9 % (95.0-98.0); CARBOXYHEMOGLOBIN 1.4 % (0.5-1.5); DRAW SITE LR; HHB 2.3 % (0.0-5.0); METHEMOGLOBIN 2.4 % (0.0-3.0)
[2017-09-14 08:37] LABS: URINE BILIRUBIN NEGATIVE (NEGATIVE); URINE BLOOD NEGATIVE (NEGATIVE); URINE COLOR Yellow (YELLOW); URINE GLUCOSE (UA) NORMAL (Normal); URINE KETONE TRACE mg/dL (NEGATIVE); URINE LEUKOCYTE ESTERASE 2+ Leu/uL (Negative); URINE PROTEIN NEGATIVE (NEGATIVE); URINE UROBILINOGEN NORMAL mg/dL (0.2-1.0)
[2017-09-14 09:07] LABS: RBC URINE 2 /hpf (0-3); URINE BACTERIA MOD (<OCC)
[2017-09-14 09:08] LABS: WBC URINE 10 /hpf (0-5)
[2017-09-14] MEDS ORDERED: Dextrose 5%/0.45% NS 1,000 ML IV SCH (10:45)
--- NOTE | 2017-09-14 12:40 | CP.PCM.CON ---
<Evelin Conte - Last Filed: 09/14/17 14:48> History of Present Illness - History of Present Illness History of Present Illness: Evelin Conte, PGY1, GI Consult Note for Dr Ortiz: CC: abdominal pain, vomiting 56 years old female with PMH DM with chronic neuropathy, PVD s/p stents, HTN, presents for abdominal pain and vomiting x past 2-3 days. Pt states that it started 6 days ago, when pt started having LLQ abdominal pain and nonbloody diarrheal episodes (3-4) for 4 days. Pt remembers eating turkey, mashed potatoes the night before, denies unusual food, sick contacts, fever, chills, hematemesis, pyrosis, weight loss, hematochezia. 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 They oocur about 30-60 mins after eating. Pt does complain of dizziness today, attributing to dehydration due to the ongoing diarrheal and vomiting episodes. Pt had some NBNB vomiting and diarrheal episodes a month ago, lasting 2-3 days. When she came to [facility] [place] ED at the time she was found to have UTI and was discharged on Macrobid. The episodes self-resolved after that. Pt had a prior EGD and colonoscopy 12 years ago, and reports "everything was normal." In ED, pt tachycardic 112, hypertensive, metabolic acidosis HCO3 10, BUN/Cr 38/ 1.2, lipase mildly elevated 428. Received 1L NS, Zofran 4mg IV, Toradol 30 mg IVx1, Dicyclomine [address] abd pelvis 09/12/17 (form prior ED visit) shows questionable mild colitis (not well evaluated because large bowel not distended). No cholecystitis/pancreatitis, appendicitis. 12 point ROS obtained and unremarkable, except as noted per HPI PMH: anemia, anxiety, arthritis, asthma, HTN, high cholesterol, hyperlipidemia, hypothyroidism, malignancy, COPD, depression, diabetes, gastritis, sleep apnea, and coronary stent PSH: bilateral LE PVD stents; right TMA All: Levofloxacin, PCN, Band aid, Hydromorphone, fragrance FH: sister on dialysis with ESRD SH: denies ETOH, smoking illicit drug use Review of Systems - Review of Systems All systems: reviewed and no additional remarkable complaints except Review of Systems: as per HPI Past Patient History - Infectious Disease Hx of Infectious Diseases: None - Past Medical History & Family History Past Medical History?: Yes - Past Social History Smoking Status: Never Smoked - CARDIAC Hx Cardiac Disorders: Yes Hx Hypercholesterolemia: Yes Hx Hypertension: Yes - PULMONARY Hx Respiratory Disorders: Yes Hx Asthma: Yes Hx Chronic Obstructive Pulmonary Disease (COPD): Yes Hx Sleep Apnea: Yes - NEUROLOGICAL Hx Neurological Disorder: Yes (Diabetic neuropathy) - HEENT Hx HEENT Problems: No - RENAL Hx Chronic Kidney Disease: No - ENDOCRINE/METABOLIC Hx Endocrine Disorders: Yes Hx Hypothyroidism: Yes - HEMATOLOGICAL/ONCOLOGICAL Hx Blood Disorders: Yes Hx Anemia: Yes - INTEGUMENTARY Hx Dermatological Problems: Yes Other/Comment: Hx BLE TMA incisions 2 neuromas in healing - MUSCULOSKELETAL/RHEUMATOLOGICAL Hx Musculoskeletal Disorders: Yes Hx Arthritis: Yes Hx Falls: No Hx Rheumatoid Arthritis: Yes - GASTROINTESTINAL Hx Gastrointestinal Disorders: Yes Hx Gastritis: Yes - GENITOURINARY/GYNECOLOGICAL Hx Genitourinary Disorders: No - PSYCHIATRIC Hx Psychophysiologic Disorder: Yes Hx Anxiety: Yes Hx Depression: Yes Hx Substance Use: No - SURGICAL HISTORY Hx Surgeries: Yes Hx Coronary Stent: Yes - ANESTHESIA Hx Anesthesia: Yes Hx Anesthesia Reactions: No Hx Malignant Hyperthermia: No Has any member of the family had a problem w/ anesthesia?: No Meds Allergies/Adverse Reactions: Allergies Allergy/AdvReac Type Severity Reaction Status Date / Time levofloxacin Allergy Intermediate RASH Verified 09/14/17 04:28 Penicillins Allergy Intermediate RASH Verified 09/14/17 04:28 Band-Aid Allergy Mild RASH Verified 09/14/17 04:28 hydromorphone AdvReac DELIRIUM Verified 09/14/17 04:28 fragrance Allergy Intermediate RASH Uncoded 09/14/17 04:28 - Medications Medications: Current Medications Enoxaparin Sodium (Lovenox) 40 mg SC DAILY [facility] Sodium Chloride (Sodium Chloride 0.9%) 1,000 mls @ 100 mls/hr IV .Q10H ONE Stop: 09/14/17 14:35 Last Admin: 09/14/17 05:50 Dose: 100 mls/hr Dextrose/Sodium Chloride (Dextrose 5%/0.45% Ns 1000 Ml) 1,000 mls @ 75 mls/hr IV .[id number] [facility] Pantoprazole Sodium (Protonix Inj) 40 mg IVPB DAILY [facility] Physical Exam - Constitutional Appears: Older Than Stated Age, Chronically Ill - Head Exam Head Exam: ATRAUMATIC, NORMOCEPHALIC - Eye Exam Eye Exam: EOMI, PERRL. absent: Conjunctival injection, Scleral icterus Pupil Exam: PERRL - ENT Exam ENT Exam: Mucous Membranes Dry - Respiratory Exam Respiratory Exam: Clear to Auscultation Bilateral. absent: Respiratory Distress - Cardiovascular Exam Cardiovascular Exam: RRR, +S1, +S2. absent: Systolic Murmur - GI/Abdominal Exam GI & Abdominal Exam: Normal Bowel Sounds, Soft, Tenderness. absent: Distended, Firm, Guarding, Mass, Organomegaly, Rebound Additional comments: TTP in LLQ and LUQ - Extremities Exam Extremities exam: Negative for: calf tenderness, pedal edema - Neurological Exam Neurological exam: Alert, Oriented x3 - Psychiatric Exam Psychiatric exam: Normal Affect - Skin Skin Exam: Dry, Normal Color, Warm Results - Vital Signs Recent Vital Signs: Last Vital Signs Temp 98.6 F 09/14/17 11:32 Pulse 76 09/14/17 11:32 Resp 18 09/14/17 11:32 BP 161/76 H 09/14/17 11:32 Pulse Ox 95 09/14/17 11:32 - Labs Result Diagrams: 09/14/17 04:49 09/14/17 04:49 Labs: Laboratory Results - last 24 hr 09/14/17 09/14/17 09/14/17 04:49 04:49 06:29 WBC 10.4 RBC 4.43 Hgb 13.0 Hct 39.9 MCV 90.1 MCH 29.4 MCHC 32.7 L RDW 13.7 Plt Count 155 MPV 10.7 Neut % (Auto) 69.8 Lymph % (Auto) 20.0 [place] % (Auto) 6.4 Eos % (Auto) 3.3 Baso % (Auto) 0.5 Neut # 7.3 H Lymph # 2.1 [place] # 0.7 Eos # 0.3 Baso # 0.1 Puncture Site pCO2 pO2 HCO3 ABG pH ABG Total CO2 ABG O2 Saturation ABG Base Excess ABG Hemoglobin ABG Carboxyhemoglobin POC ABG HHb (Measured) ABG Methemoglobin Stalin Test A-a O2 Difference Respiratory Index Hgb O2 Saturation FiO2 Blood Gas Comments Crit Value Called To Crit Value Called By Crit Value Read Back Blood Gas Notified Time Sodium 135 Potassium 5.4 H Chloride 108 H Carbon Dioxide 10 L* D Anion Gap 22 H BUN 38 H Creatinine 1.2 Est GFR ( Amer) 56 Est GFR (Non-Af Amer) 46 POC Glucose (mg/dL) Random Glucose 119 H Lactic Acid Calcium 8.8 Total Bilirubin 1.3 AST 46 H D ALT 26 Alkaline Phosphatase 83 Total Protein 8.1 Albumin 4.3 Globulin 3.8 Albumin/Globulin Ratio 1.1 Lipase 428 H Urine Color Urine Clarity Urine pH Ur Specific [place] Urine Protein Urine Glucose (UA) Urine Ketones Urine Blood Urine Nitrate Urine Bilirubin Urine Urobilinogen Ur Leukocyte Esterase Urine WBC (Auto) Urine RBC (Auto) Ur Squamous Epith Cells Urine Bacteria Urine Yeast (Budding) Serum Ketones Negative 09/14/17 09/14/17 09/14/17 06:30 07:58 08:15 WBC RBC Hgb Hct MCV MCH MCHC RDW Plt Count MPV Neut % (Auto) Lymph % (Auto) [place] % (Auto) Eos % (Auto) Baso % (Auto) Neut # Lymph # [place] # Eos # Baso # Puncture Site Lr pCO2 30 L pO2 88 HCO3 14.8 L ABG pH 7.25 L ABG Total CO2 14.1 L ABG O2 Saturation 97.6 ABG Base Excess -12.9 L ABG Hemoglobin 7.9 L ABG Carboxyhemoglobin 1.4 POC ABG HHb (Measured) 2.3 ABG Methemoglobin 2.4 Stalin Test Pos A-a O2 Difference 24.0 Respiratory Index 0.3 Hgb O2 Saturation 93.9 L FiO2 21.0 Blood Gas Comments Low ph Crit Value Called To Natalia france Crit Value Called By James Crit Value Read Back Y Blood Gas Notified Time 638 Sodium Potassium Chloride Carbon Dioxide Anion Gap BUN Creatinine Est GFR ( Amer) Est GFR (Non-Af Amer) POC Glucose (mg/dL) 154 H Random Glucose Lactic Acid Calcium Total Bilirubin AST ALT Alkaline Phosphatase Total Protein Albumin Globulin Albumin/Globulin Ratio Lipase Urine Color Yellow Urine Clarity Clear Urine pH 5.0 Ur Specific [place] 1.015 Urine Protein Negative Urine Glucose (UA) Normal Urine Ketones Trace Urine Blood Negative Urine Nitrate Negative Urine Bilirubin Negative Urine Urobilinogen Normal Ur Leukocyte Esterase 2+ H Urine WBC (Auto) 10 H Urine RBC (Auto) 2 Ur Squamous Epith Cells 2 Urine Bacteria Mod H Urine Yeast (Budding) Rare H Serum Ketones 09/14/17 11:18 WBC RBC Hgb Hct MCV MCH MCHC RDW Plt Count MPV Neut % (Auto) Lymph % (Auto) [place] % (Auto) Eos % (Auto) Baso % (Auto) Neut # Lymph # [place] # Eos # Baso # Puncture Site pCO2 pO2 HCO3 ABG pH ABG Total CO2 ABG O2 Saturation ABG Base Excess ABG Hemoglobin ABG Carboxyhemoglobin POC ABG HHb (Measured) ABG Methemoglobin Stalin Test A-a O2 Difference Respiratory Index Hgb O2 Saturation FiO2 Blood Gas Comments Crit Value Called To Crit Value Called By Crit Value Read Back Blood Gas Notified Time Sodium Potassium Chloride Carbon Dioxide Anion Gap BUN Creatinine Est GFR ( Amer) Est GFR (Non-Af Amer) POC Glucose (mg/dL) Random Glucose Lactic Acid 0.6 L Calcium Total Bilirubin AST ALT Alkaline Phosphatase Total Protein Albumin Globulin Albumin/Globulin Ratio Lipase Urine Color Urine Clarity Urine pH Ur Specific [place] Urine Protein Urine Glucose (UA) Urine Ketones Urine Blood Urine Nitrate Urine Bilirubin Urine Urobilinogen Ur Leukocyte Esterase Urine WBC (Auto) Urine RBC (Auto) Ur Squamous Epith Cells Urine Bacteria Urine Yeast (Budding) Serum Ketones Assessment & Plan - Assessment and Plan (Free Text) Assessment: 56 years old female with hx of DM with neuropathy, PVD,, HTN, presents for vomiting, abdominal pain, metabolic acidosis, renal insufficiency: Plan: - 2/2 likely colitis/diverticulitis vs gastroenteritis vs IBD vs gastritis vs ischemic bowel disease vs gastroparesis - Received Macrobid on 08/12/17 for UTI - BUN/Cr 38/1.2 - dehydrated. Received 1L NS. IVF at 100/h. - T bili 1.3 AST 46. ALT 26, ALP 83, lipase 428, albumin 4.3 - CT abd pelvis 09/12/17 shows no cholecystitis/pancreatitis/appendicitis. Mild colitis? mild perinephric stranding. Vascular calcifications in both kidneys. 5.5x5.5 cm complex mass in right adnexa - suggestive of teratoma. - Zofran prn, IV Protonix daily - NPO for now. Will advance to [facility] as tolerated. - Follow up abdominal US. Recommend CT abd pelvis once renal function improves. - Send for c.diff, stool cultures, ova/parasites, blood cultures, UA, urine culture. - Start Flagyl and Ceftriaxone IV for presumed colitis, continue with IVF. - Once pt's condition improves, pt will benefit from outpatient endoscopy and colonoscopy. Discussed with GI fellow and attending, Dr Ortiz. Evelin Conte, PGY1 - Date & Time Date: 09/14/17 Time: 13:50 <Thuan Ortiz - Last Filed: 09/14/17 15:19> Meds - Medications Medications: Current Medications Enoxaparin Sodium (Lovenox) 40 mg SC DAILY [facility] Last Admin: 09/14/17 13:00 Dose: 40 mg Sodium Bicarbonate 75 meq/ (Dextrose/Sodium Chloride) 1,000 mls @ 75 mls/hr IV .[id number] [facility] Ceftriaxone Sodium (Rocephin Iv 1 Gm Duplex) 50 mls @ 100 mls/hr IVPB DAILY [facility] Metronidazole (Flagyl) 250 mg in 50 mls @ 100 mls/hr IVPB Q8H [facility] Meclizine HCl (Antivert) 25 mg PO TID [facility] Ondansetron HCl (Zofran Inj) 4 mg IVP Q6H PRN PRN Reason: Nausea/Vomiting Pantoprazole Sodium (Protonix Inj) 40 mg IVPB DAILY [facility] Last Admin: 09/14/17 13:00 Dose: 40 mg Results - Vital Signs Recent Vital Signs: Last Vital Signs Temp 98.6 F 09/14/17 11:32 Pulse 92 H 09/14/17 13:03 Resp 18 09/14/17 11:32 BP 161/76 H 09/14/17 11:32 Pulse Ox 95 09/14/17 11:32 - Labs Result Diagrams: 09/14/17 04:49 09/14/17 04:49 Labs: Laboratory Results - last 24 hr 09/14/17 09/14/17 09/14/17 04:49 04:49 06:29 WBC 10.4 RBC 4.43 Hgb 13.0 Hct 39.9 MCV 90.1 MCH 29.4 MCHC 32.7 L RDW 13.7 Plt Count 155 MPV 10.7 Neut % (Auto) 69.8 Lymph % (Auto) 20.0 [place] % (Auto) 6.4 Eos % (Auto) 3.3 Baso % (Auto) 0.5 Neut # 7.3 H Lymph # 2.1 [place] # 0.7 Eos # 0.3 Baso # 0.1 Puncture Site pCO2 pO2 HCO3 ABG pH ABG Total CO2 ABG O2 Saturation ABG Base Excess ABG Hemoglobin ABG Carboxyhemoglobin POC ABG HHb (Measured) ABG Methemoglobin Stalin Test A-a O2 Difference Respiratory Index Hgb O2 Saturation FiO2 Blood Gas Comments Crit Value Called To Crit Value Called By Crit Value Read Back Blood Gas Notified Time Sodium 135 Potassium 5.4 H Chloride 108 H Carbon Dioxide 10 L* D Anion Gap 22 H BUN 38 H Creatinine 1.2 Est GFR ( Amer) 56 Est GFR (Non-Af Amer) 46 POC Glucose (mg/dL) Random Glucose 119 H Lactic Acid Calcium 8.8 Total Bilirubin 1.3 AST 46 H D ALT 26 Alkaline Phosphatase 83 Total Protein 8.1 Albumin 4.3 Globulin 3.8 Albumin/Globulin Ratio 1.1 Lipase 428 H Urine Color Urine Clarity Urine pH Ur Specific [place] Urine Protein Urine Glucose (UA) Urine Ketones Urine Blood Urine Nitrate Urine Bilirubin Urine Urobilinogen Ur Leukocyte Esterase Urine WBC (Auto) Urine RBC (Auto) Ur Squamous Epith Cells Urine Bacteria Urine Yeast (Budding) Serum Ketones Negative 09/14/17 09/14/17 09/14/17 06:30 07:58 08:15 WBC RBC Hgb Hct MCV MCH MCHC RDW Plt Count MPV Neut % (Auto) Lymph % (Auto) [place] % (Auto) Eos % (Auto) Baso % (Auto) Neut # Lymph # [place] # Eos # Baso # Puncture Site Lr pCO2 30 L pO2 88 HCO3 14.8 L ABG pH 7.25 L ABG Total CO2 14.1 L ABG O2 Saturation 97.6 ABG Base Excess -12.9 L ABG Hemoglobin 7.9 L ABG Carboxyhemoglobin 1.4 POC ABG HHb (Measured) 2.3 ABG Methemoglobin 2.4 Stalin Test Pos A-a O2 Difference 24.0 Respiratory Index 0.3 Hgb O2 Saturation 93.9 L FiO2 21.0 Blood Gas Comments Low ph Crit Value Called To Natalia france Crit Value Called By James Crit Value Read Back Y Blood Gas Notified Time 638 Sodium Potassium Chloride Carbon Dioxide Anion Gap BUN Creatinine Est GFR ( Amer) Est GFR (Non-Af Amer) POC Glucose (mg/dL) 154 H Random Glucose Lactic Acid Calcium Total Bilirubin AST ALT Alkaline Phosphatase Total Protein Albumin Globulin Albumin/Globulin Ratio Lipase Urine Color Yellow Urine Clarity Clear Urine pH 5.0 Ur Specific [place] 1.015 Urine Protein Negative Urine Glucose (UA) Normal Urine Ketones Trace Urine Blood Negative Urine Nitrate Negative Urine Bilirubin Negative Urine Urobilinogen Normal Ur Leukocyte Esterase 2+ H Urine WBC (Auto) 10 H Urine RBC (Auto) 2 Ur Squamous Epith Cells 2 Urine Bacteria Mod H Urine Yeast (Budding) Rare H Serum Ketones 09/14/17 11:18 WBC RBC Hgb Hct MCV MCH MCHC RDW Plt Count MPV Neut % (Auto) Lymph % (Auto) [place] % (Auto) Eos % (Auto) Baso % (Auto) Neut # Lymph # [place] # Eos # Baso # Puncture Site pCO2 pO2 HCO3 ABG pH ABG Total CO2 ABG O2 Saturation ABG Base Excess ABG Hemoglobin ABG Carboxyhemoglobin POC ABG HHb (Measured) ABG Methemoglobin Stalin Test A-a O2 Difference Respiratory Index Hgb O2 Saturation FiO2 Blood Gas Comments Crit Value Called To Crit Value Called By Crit Value Read Back Blood Gas Notified Time Sodium Potassium Chloride Carbon Dioxide Anion Gap BUN Creatinine Est GFR ( Amer) Est GFR (Non-Af Amer) POC Glucose (mg/dL) Random Glucose Lactic Acid 0.6 L Calcium Total Bilirubin AST ALT Alkaline Phosphatase Total Protein Albumin Globulin Albumin/Globulin Ratio Lipase Urine Color Urine Clarity Urine pH Ur Specific [place] Urine Protein Urine Glucose (UA) Urine Ketones Urine Blood Urine Nitrate Urine Bilirubin Urine Urobilinogen Ur Leukocyte Esterase Urine WBC (Auto) Urine RBC (Auto) Ur Squamous Epith Cells Urine Bacteria Urine Yeast (Budding) Serum Ketones Attending/Attestation - Attestation I have personally seen and examined this patient.: Yes I have fully participated in the care of the patient.: Yes I have reviewed all pertinent clinical information: Yes Notes (Text): 09/14/17 15:12 I have seen and examined patient with GI fellow and medical technologist generalist. Agree with above documentation with the following additions. In brief, this is a 56 year old female with history of DM, HTN, PVD s/p stent placement, who presents to hospital with complaint of abdominal pain, vomiting, diarrhea for the past 4 days. Her symptoms began the day after Thanksgiving where she ate turkey and potato salad. Prior to this she was in usual state of health, though she did have a similar episode nearly 1 month ago which resolved on its own. She initially was having multiple non-bloody bowel movements up to 4-5 per day though no bowel movements over the past 24 hours. She now is having continued abdominal pain and vomiting associated with severe dizziness. She denies fever/ chills, weight loss, rectal bleeding, sick contacts, or unusual food consumption. She did use antibiotic therapy for UTI 1 month ago. She had an EGD/colonoscopy 12 years ago which were normal as per patient. DM / HTN PVD s/p stent placement Abdominal pain, nausea, vomiting CT imaging from patient ER visit 4 days ago shows eloy-nephric stranding, mild colonic wall thickening (colitis), complex R adnexal mass suggestive of teratoma - Liquid diet as tolerated - Continue with supportive care and IVF hydration therapy - Obtain stool studies (c-difficile, culture, O/P) - Anti-emetic therapy PRN - Obtain blood and urine cultures, current UA shows infection - Continue with broad spectrum antibiotic therapy and monitor clinical response - Patient would benefit from elective outpatient endoscopic evaluation following resolution of acute symptoms, will continue to monitor patient clinical course
[2017-09-14] MEDS: Enoxaparin 40 mg Syringe SC SCH (13:00)
--- NOTE | 2017-09-14 13:35 | US ---
HISTORY: Pancreatitis COMPARISON: None. TECHNIQUE: Grayscale imaging was performed. FINDINGS: LIVER: Measures 12.9 cm. There is diffuse increased echogenicity of the liver parenchyma. No mass. No intrahepatic bile duct dilatation. GALLBLADDER: There are no gallstones, wall thickening or pericholecystic fluid. The sonographic Cary's sign is negative. COMMON BILE DUCT: Measures 3.4 mm. No stones. No dilatation. PANCREAS: Unremarkable as visualized. No mass. No ductal dilatation. RIGHT KIDNEY: Measures 10.2cm. Normal echogenicity. No calculus, mass, or hydronephrosis. LEFT KIDNEY: Measures 10.4cm. Normal echogenicity. No calculus, mass, or hydronephrosis. SPLEEN: Normal in size and contour. No mass. AORTA: No aneurysmal dilatation. IVC: Unremarkable. OTHER FINDINGS: None. IMPRESSION: Diffuse increased echogenicity in the liver may reflect hepatic steatosis however parenchymal infectious/ inflammatory etiologies cannot be entirely excluded. Clinical and laboratory correlation is advised.
--- NOTE | 2017-09-14 14:01 | CP.PCM.CON ---
History of Present Illness - History of Present Illness History of Present Illness: 56 years old female with PMH DM with chronic neuropathy, PVD s/p stents, HTN, presents for abdominal pain and vomiting x past 2-3 days. Pt states that it started 6 days ago, when pt started having LLQ abdominal pain and nonbloody diarrheal episodes, 3-4 every day, for 4 days. Pt remembers eating turkey, mashed potatoes, denies unusual food, sick contacts, fever, chills, hematemesis , weight loss, hematochezia, pyrosis. Pt does have dizziness today, attributing to dehydration due to the ongoing diarrheal and vomiting episodes. Pt had a similar NBNB vomiting and diarrheal episode a month ago, lasting 2-3 days, she was found to have UTI and was discharged from [facility] ED on Macrobid. decreased appetite, nausea, denies weight loss, hematemesis, fever, chills, hematochezia, PMH: anemia, anxiety, arthritis, asthma, HTN, high cholesterol, hyperlipidemia, hypothyroidism, malignancy, COPD, depression, diabetes, gastritis, rheumatoid arthritis, sleep apnea, and PVD stent All: Levofloxacin, PCN, Band aid, Hydromorphone, fragrance FH: sister on dialysis with ESRD SH: denies ETOH, smoking illicit drug use PSH: bilateral LE PVD stents; right TMA Review of Systems - Constitutional Constitutional: Daytime Sleepiness, Fatigue, Weakness - EENT Eyes: absent: As Per HPI, Blind Spots, Blurred Vision, Change in Vision, Decreased Night Vision, Diplopia, Discharge, Dry Eye, Exophthalmos, Floaters, Irritation, Itchy Eyes, Loss of Peripheral Vision, Pain, Photophobia, Requires Corrective Lenses, Sees Flashes, Spots in Vision, Tunnel Vision, Other Visual Disturbances, Loss of Vision, Other Ears: absent: As Per HPI, Decreased Hearing, Ear Discharge, Ear Pain, Tinnitus, Abnormal Hearing, Disequilibrium, Dizziness, Other Nose/Mouth/Throat: absent: As Per HPI, Epistaxis, Nasal Congestion, Nasal Discharge, Nasal Obstruction, Nasal Trauma, Nose Pain, Post Nasal Drip, Sinus Pain, Sinus Pressure, Bleeding Gums, Change in Voice, Dental Pain, Dry Mouth, Dysphagia, Halitosis, Hoarsness, Lip Swelling, Mouth Lesions, Mouth Pain, Odynophagia, Sore Throat, Throat Swelling, Tongue Swelling, Facial Pain, Neck Pain, Neck Mass, Other - Cardiovascular Cardiovascular: absent: As Per HPI, Acrocyanosis, Chest Pain, Chest Pain at Rest , Chest Pain with Activity, Claudication, Diaphoresis, Dyspnea, Dyspnea on Exertion, Edema, Irregular Heart Rhythm, Pain Radiating to Arm/Neck/Jaw, Leg Edema, Leg Ulcers, Lightheadedness, Orthopnea, Palpitations, Paroxysmal Nocturnal Dyspnea, Pedal Edema, Radiating Pain, Rapid Heart Rate, Slow Heart Rate, Syncope, Other - Respiratory Respiratory: Dyspnea on Exertion - Gastrointestinal Gastrointestinal: As Per HPI - Genitourinary Genitourinary: Voiding Freq/Small Amts - Musculoskeletal Musculoskeletal: Muscle Cramps, Muscle Weakness - Integumentary Integumentary: absent: As Per HPI, Acne, Alopecia, Bleeding Lesions, Change in Hair, Change in Nails, Change in Pigmentation, Changing Lesions, Dry Skin, Erythema, Furuncle, Hirsutism, Lesions, New Lesions, Non-Healing Lesions, Photosensitivity, Pruritus, Rash, Skin Pain, Skin Ulcer, Sores, Striae, Swelling , Unusual Bruising, Wounds, Jaundice, Other - Neurological Neurological: Confusion, Weakness Past Patient History - Infectious Disease Hx of Infectious Diseases: None - Past Medical History & Family History Past Medical History?: Yes Pertinent Family History: sister on dialysis - Past Social History Smoking Status: Never Smoked Chewing Tobacco Use: No Cigar Use: No Alcohol: None Drugs: Denies Home Situation {Lives}: With Family - CARDIAC Hx Cardiac Disorders: Yes Hx Hypercholesterolemia: Yes Hx Hypertension: Yes - PULMONARY Hx Respiratory Disorders: Yes Hx Asthma: Yes Hx Chronic Obstructive Pulmonary Disease (COPD): Yes Hx Sleep Apnea: Yes - NEUROLOGICAL Hx Neurological Disorder: Yes (Diabetic neuropathy) - HEENT Hx HEENT Problems: No - RENAL Hx Chronic Kidney Disease: No - ENDOCRINE/METABOLIC Hx Endocrine Disorders: Yes Hx Hypothyroidism: Yes - HEMATOLOGICAL/ONCOLOGICAL Hx Blood Disorders: Yes Hx Anemia: Yes - INTEGUMENTARY Hx Dermatological Problems: Yes Other/Comment: Hx BLE TMA incisions 2 neuromas in healing - MUSCULOSKELETAL/RHEUMATOLOGICAL Hx Musculoskeletal Disorders: Yes Hx Arthritis: Yes Hx Falls: No Hx Rheumatoid Arthritis: Yes - GASTROINTESTINAL Hx Gastrointestinal Disorders: Yes Hx Gastritis: Yes - GENITOURINARY/GYNECOLOGICAL Hx Genitourinary Disorders: No - PSYCHIATRIC Hx Psychophysiologic Disorder: Yes Hx Anxiety: Yes Hx Depression: Yes Hx Substance Use: No - SURGICAL HISTORY Hx Surgeries: Yes Hx Coronary Stent: Yes - ANESTHESIA Hx Anesthesia: Yes Hx Anesthesia Reactions: No Hx Malignant Hyperthermia: No Has any member of the family had a problem w/ anesthesia?: No Meds Allergies/Adverse Reactions: Allergies Allergy/AdvReac Type Severity Reaction Status Date / Time levofloxacin Allergy Intermediate RASH Verified 09/14/17 04:28 Penicillins Allergy Intermediate RASH Verified 09/14/17 04:28 Band-Aid Allergy Mild RASH Verified 09/14/17 04:28 hydromorphone AdvReac DELIRIUM Verified 09/14/17 04:28 fragrance Allergy Intermediate RASH Uncoded 09/14/17 04:28 - Medications Medications: Current Medications Enoxaparin Sodium (Lovenox) 40 mg SC DAILY AMADO Sodium Chloride (Sodium Chloride 0.9%) 1,000 mls @ 100 mls/hr IV .Q10H ONE Stop: 09/14/17 14:35 Last Admin: 09/14/17 05:50 Dose: 100 mls/hr Dextrose/Sodium Chloride (Dextrose 5%/0.45% Ns 1000 Ml) 1,000 mls @ 75 mls/hr IV .[id number] AMADO Pantoprazole Sodium (Protonix Inj) 40 mg IVPB DAILY AMADO Physical Exam - Constitutional Appears: In Acute Distress, Chronically Ill - Head Exam Head Exam: ATRAUMATIC, NORMAL INSPECTION - Eye Exam Eye Exam: EOMI, Normal appearance - Neck Exam Neck exam: Positive for: Normal Inspection. Negative for: Tenderness - Respiratory Exam Respiratory Exam: Clear to Auscultation Bilateral, NORMAL BREATHING PATTERN - Cardiovascular Exam Cardiovascular Exam: REGULAR RHYTHM, +S1 - GI/Abdominal Exam GI & Abdominal Exam: Distended, Hypoactive Bowel Sounds, Tenderness - Extremities Exam Extremities exam: Positive for: normal inspection. Negative for: tenderness - Neurological Exam Neurological exam: Alert, CN II-XII Intact - Skin Skin Exam: Dry, Warm Results - Vital Signs Recent Vital Signs: Last Vital Signs Temp 98.6 F 09/14/17 11:32 Pulse 92 H 09/14/17 13:03 Resp 18 09/14/17 11:32 BP 161/76 H 09/14/17 11:32 Pulse Ox 95 09/14/17 11:32 - Labs Result Diagrams: 09/14/17 04:49 09/14/17 04:49 Labs: Laboratory Results - last 24 hr 09/14/17 09/14/17 09/14/17 04:49 04:49 06:29 WBC 10.4 RBC 4.43 Hgb 13.0 Hct 39.9 MCV 90.1 MCH 29.4 MCHC 32.7 L RDW 13.7 Plt Count 155 MPV 10.7 Neut % (Auto) 69.8 Lymph % (Auto) 20.0 [place] % (Auto) 6.4 Eos % (Auto) 3.3 Baso % (Auto) 0.5 Neut # 7.3 H Lymph # 2.1 [place] # 0.7 Eos # 0.3 Baso # 0.1 Puncture Site pCO2 pO2 HCO3 ABG pH ABG Total CO2 ABG O2 Saturation ABG Base Excess ABG Hemoglobin ABG Carboxyhemoglobin POC ABG HHb (Measured) ABG Methemoglobin Stalin Test A-a O2 Difference Respiratory Index Hgb O2 Saturation FiO2 Blood Gas Comments Crit Value Called To Crit Value Called By Crit Value Read Back Blood Gas Notified Time Sodium 135 Potassium 5.4 H Chloride 108 H Carbon Dioxide 10 L* D Anion Gap 22 H BUN 38 H Creatinine 1.2 Est GFR ( Amer) 56 Est GFR (Non-Af Amer) 46 POC Glucose (mg/dL) Random Glucose 119 H Lactic Acid Calcium 8.8 Total Bilirubin 1.3 AST 46 H D ALT 26 Alkaline Phosphatase 83 Total Protein 8.1 Albumin 4.3 Globulin 3.8 Albumin/Globulin Ratio 1.1 Lipase 428 H Urine Color Urine Clarity Urine pH Ur Specific [place] Urine Protein Urine Glucose (UA) Urine Ketones Urine Blood Urine Nitrate Urine Bilirubin Urine Urobilinogen Ur Leukocyte Esterase Urine WBC (Auto) Urine RBC (Auto) Ur Squamous Epith Cells Urine Bacteria Urine Yeast (Budding) Serum Ketones Negative 09/14/17 09/14/17 09/14/17 06:30 07:58 08:15 WBC RBC Hgb Hct MCV MCH MCHC RDW Plt Count MPV Neut % (Auto) Lymph % (Auto) [place] % (Auto) Eos % (Auto) Baso % (Auto) Neut # Lymph # [place] # Eos # Baso # Puncture Site Lr pCO2 30 L pO2 88 HCO3 14.8 L ABG pH 7.25 L ABG Total CO2 14.1 L ABG O2 Saturation 97.6 ABG Base Excess -12.9 L ABG Hemoglobin 7.9 L ABG Carboxyhemoglobin 1.4 POC ABG HHb (Measured) 2.3 ABG Methemoglobin 2.4 Stalin Test Pos A-a O2 Difference 24.0 Respiratory Index 0.3 Hgb O2 Saturation 93.9 L FiO2 21.0 Blood Gas Comments Low ph Crit Value Called To Natalia france Crit Value Called By James Crit Value Read Back Y Blood Gas Notified Time 638 Sodium Potassium Chloride Carbon Dioxide Anion Gap BUN Creatinine Est GFR ( Amer) Est GFR (Non-Af Amer) POC Glucose (mg/dL) 154 H Random Glucose Lactic Acid Calcium Total Bilirubin AST ALT Alkaline Phosphatase Total Protein Albumin Globulin Albumin/Globulin Ratio Lipase Urine Color Yellow Urine Clarity Clear Urine pH 5.0 Ur Specific [place] 1.015 Urine Protein Negative Urine Glucose (UA) Normal Urine Ketones Trace Urine Blood Negative Urine Nitrate Negative Urine Bilirubin Negative Urine Urobilinogen Normal Ur Leukocyte Esterase 2+ H Urine WBC (Auto) 10 H Urine RBC (Auto) 2 Ur Squamous Epith Cells 2 Urine Bacteria Mod H Urine Yeast (Budding) Rare H Serum Ketones 09/14/17 11:18 WBC RBC Hgb Hct MCV MCH MCHC RDW Plt Count MPV Neut % (Auto) Lymph % (Auto) [place] % (Auto) Eos % (Auto) Baso % (Auto) Neut # Lymph # [place] # Eos # Baso # Puncture Site pCO2 pO2 HCO3 ABG pH ABG Total CO2 ABG O2 Saturation ABG Base Excess ABG Hemoglobin ABG Carboxyhemoglobin POC ABG HHb (Measured) ABG Methemoglobin Stalin Test A-a O2 Difference Respiratory Index Hgb O2 Saturation FiO2 Blood Gas Comments Crit Value Called To Crit Value Called By Crit Value Read Back Blood Gas Notified Time Sodium Potassium Chloride Carbon Dioxide Anion Gap BUN Creatinine Est GFR ( Amer) Est GFR (Non-Af Amer) POC Glucose (mg/dL) Random Glucose Lactic Acid 0.6 L Calcium Total Bilirubin AST ALT Alkaline Phosphatase Total Protein Albumin Globulin Albumin/Globulin Ratio Lipase Urine Color Urine Clarity Urine pH Ur Specific [place] Urine Protein Urine Glucose (UA) Urine Ketones Urine Blood Urine Nitrate Urine Bilirubin Urine Urobilinogen Ur Leukocyte Esterase Urine WBC (Auto) Urine RBC (Auto) Ur Squamous Epith Cells Urine Bacteria Urine Yeast (Budding) Serum Ketones Assessment & Plan - Assessment and Plan (Free Text) Assessment: Acute pancreatitis Dehydration DM 2 h/o CKD- stage 3 PVD post TMA Plan: IV bicarb gtt serial chemistries check for proteinuria
[2017-09-14] MEDS ORDERED: SODIUM BICARBONATE IV SCH (14:10)
[2017-09-14] MEDS ORDERED: [UNRECOGNIZED DRUG - OTHER] IV SCH (14:10)
[2017-09-14] MEDS ORDERED: DEXTROSE IV SCH (14:10)
[2017-09-14] MEDS ORDERED: METRONIDAZOLE IVPB SCH (15:30)
[2017-09-14] MEDS: SODIUM BICARBONATE IV SCH (16:00)
[2017-09-14] MEDS: cefTRIAXone IV 1 gm in Dextros 50 ML IVPB SCH (16:00)
[2017-09-14] MEDS: DEXTROSE IV SCH (16:00)
[2017-09-14] MEDS: [UNRECOGNIZED DRUG - OTHER] IV SCH (16:00)
--- NOTE | 2017-09-14 17:21 | CP.PCM.CON ---
<Raoul Healy - Last Filed: 09/14/17 17:26> History of Present Illness - History of Present Illness History of Present Illness: This is a 56 year old female who presented to the ER with 4 days of lower left quadrant abdominal pain, along with non-bloody, non-bilious vomiting and non-bloody diarrhea. She presented to the ER on 09/12 after having a syncopal episode and was sent home from the ER with jaden. She again presented to the ER today with similar symptoms with the addition of dizziness among her other symptoms. Her complaints on interview were mild abdominal pain and severe dizziness. She denied fevers/chills, bowel movement in last 24 hours , nausea, vomiting in last 24 hours. She remembers one instance of spotting in January 2017 but otherwise denies vaginal bleeding. She states she's always had irregular periods and has gone 1 year without having a period in the past. She had menarche at age 11. She states menopause began at age 44. She has a pap smear on 08/2016 which was normal per patient. She last saw her OBGYN Dr Miranda ([facility]) in January 2017 who performed at transvaginal ultrasound at that time and told her of a cyst on her right side. She has an appointment scheduled with Dr Miranda for 10/14/2017. She states she took an antibiotic for a UTI 1 month ago. OBGYN Hx: menarche at age 11, menopause at age 44, , history of irregular periods with normal flow, last pap smear 08/2016 normal; D&C at age 25 PMHx: Anemia, Anxiety, Arthritis, Asthma, COPD, Depression, Diabetes (type I and II, associated diabetic neuropathy), Gastritis, HTN, Hypercholesterolemia, Hyperlipidemia, Hypothyroidism, Malignancy (thyroid), Rheumatoid Arthritis, Sleep Apnea PSHx: Coronary stent, b/l transmetatarsal amputations Allergies: All: Levofloxacin, PCN, Band aid, Hydromorphone, fragrance FH: sister on dialysis with ESRD SH: denies ETOH, smoking, illicit drug use Review of Systems - Constitutional Constitutional: Fatigue. absent: Chills, Fever - Breasts Breasts: absent: Pain, Nipple Discharge - Cardiovascular Cardiovascular: absent: Chest Pain - Respiratory Respiratory: absent: Dyspnea - Gastrointestinal Gastrointestinal: Abdominal Pain Additional comments: Localized to lower left quadrant - Genitourinary Genitourinary: absent: Dysuria - Reproductive: Female Reproductive:Female: Menopausal - Menstruation Menstruation: Menopausal - Neurological Neurological: Dizziness Past Patient History - Infectious Disease Hx of Infectious Diseases: None - Past Medical History & Family History Past Medical History?: Yes - Past Social History Smoking Status: Never Smoked - CARDIAC Hx Cardiac Disorders: Yes Hx Hypercholesterolemia: Yes Hx Hypertension: Yes - PULMONARY Hx Respiratory Disorders: Yes Hx Asthma: Yes Hx Chronic Obstructive Pulmonary Disease (COPD): Yes Hx Sleep Apnea: Yes - NEUROLOGICAL Hx Neurological Disorder: Yes (Diabetic neuropathy) - HEENT Hx HEENT Problems: No - RENAL Hx Chronic Kidney Disease: No - ENDOCRINE/METABOLIC Hx Endocrine Disorders: Yes Hx Hypothyroidism: Yes - HEMATOLOGICAL/ONCOLOGICAL Hx Blood Disorders: Yes Hx Anemia: Yes - INTEGUMENTARY Hx Dermatological Problems: Yes Other/Comment: Hx BLE TMA incisions 2 neuromas in healing - MUSCULOSKELETAL/RHEUMATOLOGICAL Hx Musculoskeletal Disorders: Yes Hx Arthritis: Yes Hx Falls: No Hx Rheumatoid Arthritis: Yes - GASTROINTESTINAL Hx Gastrointestinal Disorders: Yes Hx Gastritis: Yes - GENITOURINARY/GYNECOLOGICAL Hx Genitourinary Disorders: No - PSYCHIATRIC Hx Psychophysiologic Disorder: Yes Hx Anxiety: Yes Hx Depression: Yes Hx Substance Use: No - SURGICAL HISTORY Hx Surgeries: Yes Hx Coronary Stent: Yes - ANESTHESIA Hx Anesthesia: Yes Hx Anesthesia Reactions: No Hx Malignant Hyperthermia: No Has any member of the family had a problem w/ anesthesia?: No Meds Allergies/Adverse Reactions: Allergies Allergy/AdvReac Type Severity Reaction Status Date / Time levofloxacin Allergy Intermediate RASH Verified 09/14/17 04:28 Penicillins Allergy Intermediate RASH Verified 09/14/17 04:28 Band-Aid Allergy Mild RASH Verified 09/14/17 04:28 hydromorphone AdvReac DELIRIUM Verified 09/14/17 04:28 fragrance Allergy Intermediate RASH Uncoded 09/14/17 04:28 - Medications Medications: Current Medications Enoxaparin Sodium (Lovenox) 40 mg SC DAILY [facility] Last Admin: 09/14/17 13:00 Dose: 40 mg Sodium Bicarbonate 75 meq/ (Dextrose/Sodium Chloride) 1,000 mls @ 75 mls/hr IV .[id number] [facility] Ceftriaxone Sodium (Rocephin Iv 1 Gm Duplex) 50 mls @ 100 mls/hr IVPB DAILY [facility] Metronidazole (Flagyl) 250 mg in 50 mls @ 100 mls/hr IVPB Q8H [facility] Stop: 09/19/17 16:31 Meclizine HCl (Antivert) 25 mg PO TID [facility] Ondansetron HCl (Zofran Inj) 4 mg IVP Q6H PRN PRN Reason: Nausea/Vomiting Pantoprazole Sodium (Protonix Inj) 40 mg IVPB DAILY [facility] Last Admin: 09/14/17 13:00 Dose: 40 mg Physical Exam - Constitutional Appears: Well, Non-toxic, No Acute Distress - Head Exam Head Exam: ATRAUMATIC, NORMAL INSPECTION - Eye Exam Eye Exam: EOMI - ENT Exam ENT Exam: Mucous Membranes Moist - Neck Exam Neck exam: Positive for: Normal Inspection. Negative for: Lymphadenopathy - Respiratory Exam Respiratory Exam: Clear to Auscultation Bilateral, NORMAL BREATHING PATTERN. absent: Rales, Rhonchi, Wheezes - Cardiovascular Exam Cardiovascular Exam: REGULAR RHYTHM. absent: Bradycardia, Tachycardia, Systolic Murmur - GI/Abdominal Exam GI & Abdominal Exam: Normal Bowel Sounds, Soft. absent: Distended, Firm, Guarding, Mass, Tenderness Additional comments: No tenderness to palpation - Extremities Exam Extremities exam: Positive for: normal inspection Additional comments: s/p bilateral metatarsal amputations - Neurological Exam Neurological exam: Alert, Oriented x3 Results - Vital Signs Recent Vital Signs: Last Vital Signs Temp 98.1 F 09/14/17 15:37 Pulse 68 09/14/17 15:37 Resp 18 09/14/17 15:37 BP 124/69 09/14/17 15:37 Pulse Ox 98 09/14/17 15:37 - Labs Result Diagrams: 09/14/17 04:49 09/14/17 04:49 Labs: Laboratory Results - last 24 hr 09/14/17 09/14/17 09/14/17 04:49 04:49 06:29 WBC 10.4 RBC 4.43 Hgb 13.0 Hct 39.9 MCV 90.1 MCH 29.4 MCHC 32.7 L RDW 13.7 Plt Count 155 MPV 10.7 Neut % (Auto) 69.8 Lymph % (Auto) 20.0 [place] % (Auto) 6.4 Eos % (Auto) 3.3 Baso % (Auto) 0.5 Neut # 7.3 H Lymph # 2.1 [place] # 0.7 Eos # 0.3 Baso # 0.1 Puncture Site pCO2 pO2 HCO3 ABG pH ABG Total CO2 ABG O2 Saturation ABG Base Excess ABG Hemoglobin ABG Carboxyhemoglobin POC ABG HHb (Measured) ABG Methemoglobin Stalin Test A-a O2 Difference Respiratory Index Hgb O2 Saturation FiO2 Blood Gas Comments Crit Value Called To Crit Value Called By Crit Value Read Back Blood Gas Notified Time Sodium 135 Potassium 5.4 H Chloride 108 H Carbon Dioxide 10 L* D Anion Gap 22 H BUN 38 H Creatinine 1.2 Est GFR ( Amer) 56 Est GFR (Non-Af Amer) 46 POC Glucose (mg/dL) Random Glucose 119 H Lactic Acid Calcium 8.8 Total Bilirubin 1.3 AST 46 H D ALT 26 Alkaline Phosphatase 83 Total Protein 8.1 Albumin 4.3 Globulin 3.8 Albumin/Globulin Ratio 1.1 Lipase 428 H Urine Color Urine Clarity Urine pH Ur Specific [place] Urine Protein Urine Glucose (UA) Urine Ketones Urine Blood Urine Nitrate Urine Bilirubin Urine Urobilinogen Ur Leukocyte Esterase Urine WBC (Auto) Urine RBC (Auto) Ur Squamous Epith Cells Urine Bacteria Urine Yeast (Budding) Serum Ketones Negative 09/14/17 09/14/17 09/14/17 06:30 07:58 08:15 WBC RBC Hgb Hct MCV MCH MCHC RDW Plt Count MPV Neut % (Auto) Lymph % (Auto) [place] % (Auto) Eos % (Auto) Baso % (Auto) Neut # Lymph # [place] # Eos # Baso # Puncture Site Lr pCO2 30 L pO2 88 HCO3 14.8 L ABG pH 7.25 L ABG Total CO2 14.1 L ABG O2 Saturation 97.6 ABG Base Excess -12.9 L ABG Hemoglobin 7.9 L ABG Carboxyhemoglobin 1.4 POC ABG HHb (Measured) 2.3 ABG Methemoglobin 2.4 Stalin Test Pos A-a O2 Difference 24.0 Respiratory Index 0.3 Hgb O2 Saturation 93.9 L FiO2 21.0 Blood Gas Comments Low ph Crit Value Called To Natalia france Crit Value Called By James Crit Value Read Back Y Blood Gas Notified Time 638 Sodium Potassium Chloride Carbon Dioxide Anion Gap BUN Creatinine Est GFR ( Amer) Est GFR (Non-Af Amer) POC Glucose (mg/dL) 154 H Random Glucose Lactic Acid Calcium Total Bilirubin AST ALT Alkaline Phosphatase Total Protein Albumin Globulin Albumin/Globulin Ratio Lipase Urine Color Yellow Urine Clarity Clear Urine pH 5.0 Ur Specific [place] 1.015 Urine Protein Negative Urine Glucose (UA) Normal Urine Ketones Trace Urine Blood Negative Urine Nitrate Negative Urine Bilirubin Negative Urine Urobilinogen Normal Ur Leukocyte Esterase 2+ H Urine WBC (Auto) 10 H Urine RBC (Auto) 2 Ur Squamous Epith Cells 2 Urine Bacteria Mod H Urine Yeast (Budding) Rare H Serum Ketones 09/14/17 11:18 WBC RBC Hgb Hct MCV MCH MCHC RDW Plt Count MPV Neut % (Auto) Lymph % (Auto) [place] % (Auto) Eos % (Auto) Baso % (Auto) Neut # Lymph # [place] # Eos # Baso # Puncture Site pCO2 pO2 HCO3 ABG pH ABG Total CO2 ABG O2 Saturation ABG Base Excess ABG Hemoglobin ABG Carboxyhemoglobin POC ABG HHb (Measured) ABG Methemoglobin Stalin Test A-a O2 Difference Respiratory Index Hgb O2 Saturation FiO2 Blood Gas Comments Crit Value Called To Crit Value Called By Crit Value Read Back Blood Gas Notified Time Sodium Potassium Chloride Carbon Dioxide Anion Gap BUN Creatinine Est GFR ( Amer) Est GFR (Non-Af Amer) POC Glucose (mg/dL) Random Glucose Lactic Acid 0.6 L Calcium Total Bilirubin AST ALT Alkaline Phosphatase Total Protein Albumin Globulin Albumin/Globulin Ratio Lipase Urine Color Urine Clarity Urine pH Ur Specific [place] Urine Protein Urine Glucose (UA) Urine Ketones Urine Blood Urine Nitrate Urine Bilirubin Urine Urobilinogen Ur Leukocyte Esterase Urine WBC (Auto) Urine RBC (Auto) Ur Squamous Epith Cells Urine Bacteria Urine Yeast (Budding) Serum Ketones Assessment & Plan (1) Dermoid cyst of right ovary Assessment and Plan: CT Abd/Pelvis without contrast 09/12 shows heterogeneous mass lesion at the right adnexa contains fat and calcification measures 5.5 x 5.5 centimeter likely represent dermoid cyst/ teratoma. The uterus is otherwise unremarkable. The left adnexa is unremarkable. F/U transvaginal ultrasound Status: Acute Priority: High <Julio Cesar,Sharron A - Last Filed: 09/14/17 21:36> Meds - Medications Medications: Current Medications Enoxaparin Sodium (Lovenox) 40 mg SC DAILY [facility] Last Admin: 09/14/17 13:00 Dose: 40 mg Sodium Bicarbonate 75 meq/ (Dextrose/Sodium Chloride) 1,000 mls @ 75 mls/hr IV .[id number] [facility] Last Admin: 09/14/17 16:00 Dose: 75 mls/hr Ceftriaxone Sodium (Rocephin Iv 1 Gm Duplex) 50 mls @ 100 mls/hr IVPB DAILY [facility] Last Admin: 09/14/17 16:00 Dose: 100 mls/hr Metronidazole (Flagyl) 250 mg in 50 mls @ 100 mls/hr IVPB Q8H [facility] Stop: 09/19/17 16:31 Last Admin: 09/14/17 17:26 Dose: 100 mls/hr Meclizine HCl (Antivert) 25 mg PO TID [facility] Last Admin: 09/14/17 17:31 Dose: 25 mg Ondansetron HCl (Zofran Inj) 4 mg IVP Q6H PRN PRN Reason: Nausea/Vomiting Last Admin: 09/14/17 17:23 Dose: 4 mg Pantoprazole Sodium (Protonix Inj) 40 mg IVPB DAILY [facility] Last Admin: 09/14/17 13:00 Dose: 40 mg Sodium Bicarbonate (Sodium Bicarbonate Tab) 650 mg PO Q6 [facility] Results - Vital Signs Recent Vital Signs: Last Vital Signs Temp 98.1 F 09/14/17 15:37 Pulse 71 09/14/17 16:00 Resp 18 09/14/17 15:37 BP 124/69 09/14/17 15:37 Pulse Ox 98 09/14/17 15:37 - Labs Result Diagrams: 09/14/17 04:49 09/14/17 04:49 Labs: Laboratory Results - last 24 hr 09/14/17 09/14/17 09/14/17 04:49 04:49 06:29 WBC 10.4 RBC 4.43 Hgb 13.0 Hct 39.9 MCV 90.1 MCH 29.4 MCHC 32.7 L RDW 13.7 Plt Count 155 MPV 10.7 Neut % (Auto) 69.8 Lymph % (Auto) 20.0 [place] % (Auto) 6.4 Eos % (Auto) 3.3 Baso % (Auto) 0.5 Neut # 7.3 H Lymph # 2.1 [place] # 0.7 Eos # 0.3 Baso # 0.1 Puncture Site pCO2 pO2 HCO3 ABG pH ABG Total CO2 ABG O2 Saturation ABG Base Excess ABG Hemoglobin ABG Carboxyhemoglobin POC ABG HHb (Measured) ABG Methemoglobin Stalin Test A-a O2 Difference Respiratory Index Hgb O2 Saturation FiO2 Blood Gas Comments Crit Value Called To Crit Value Called By Crit Value Read Back Blood Gas Notified Time Sodium 135 Potassium 5.4 H Chloride 108 H Carbon Dioxide 10 L* D Anion Gap 22 H BUN 38 H Creatinine 1.2 Est GFR ( Amer) 56 Est GFR (Non-Af Amer) 46 POC Glucose (mg/dL) Random Glucose 119 H Lactic Acid Calcium 8.8 Total Bilirubin 1.3 AST 46 H D ALT 26 Alkaline Phosphatase 83 Total Protein 8.1 Albumin 4.3 Globulin 3.8 Albumin/Globulin Ratio 1.1 Lipase 428 H Urine Color Urine Clarity Urine pH Ur Specific [place] Urine Protein Urine Glucose (UA) Urine Ketones Urine Blood Urine Nitrate Urine Bilirubin Urine Urobilinogen Ur Leukocyte Esterase Urine WBC (Auto) Urine RBC (Auto) Ur Squamous Epith Cells Urine Bacteria Urine Yeast (Budding) Serum Ketones Negative 09/14/17 09/14/17 09/14/17 06:30 07:58 08:15 WBC RBC Hgb Hct MCV MCH MCHC RDW Plt Count MPV Neut % (Auto) Lymph % (Auto) [place] % (Auto) Eos % (Auto) Baso % (Auto) Neut # Lymph # [place] # Eos # Baso # Puncture Site Lr pCO2 30 L pO2 88 HCO3 14.8 L ABG pH 7.25 L ABG Total CO2 14.1 L ABG O2 Saturation 97.6 ABG Base Excess -12.9 L ABG Hemoglobin 7.9 L ABG Carboxyhemoglobin 1.4 POC ABG HHb (Measured) 2.3 ABG Methemoglobin 2.4 Stalin Test Pos A-a O2 Difference 24.0 Respiratory Index 0.3 Hgb O2 Saturation 93.9 L FiO2 21.0 Blood Gas Comments Low ph Crit Value Called To Natalia france Crit Value Called By James Crit Value Read Back Y Blood Gas Notified Time 638 Sodium Potassium Chloride Carbon Dioxide Anion Gap BUN Creatinine Est GFR ( Amer) Est GFR (Non-Af Amer) POC Glucose (mg/dL) 154 H Random Glucose Lactic Acid Calcium Total Bilirubin AST ALT Alkaline Phosphatase Total Protein Albumin Globulin Albumin/Globulin Ratio Lipase Urine Color Yellow Urine Clarity Clear Urine pH 5.0 Ur Specific [place] 1.015 Urine Protein Negative Urine Glucose (UA) Normal Urine Ketones Trace Urine Blood Negative Urine Nitrate Negative Urine Bilirubin Negative Urine Urobilinogen Normal Ur Leukocyte Esterase 2+ H Urine WBC (Auto) 10 H Urine RBC (Auto) 2 Ur Squamous Epith Cells 2 Urine Bacteria Mod H Urine Yeast (Budding) Rare H Serum Ketones 09/14/17 09/14/17 09/14/17 11:18 16:42 21:02 WBC RBC Hgb Hct MCV MCH MCHC RDW Plt Count MPV Neut % (Auto) Lymph % (Auto) [place] % (Auto) Eos % (Auto) Baso % (Auto) Neut # Lymph # [place] # Eos # Baso # Puncture Site pCO2 pO2 HCO3 ABG pH ABG Total CO2 ABG O2 Saturation ABG Base Excess ABG Hemoglobin ABG Carboxyhemoglobin POC ABG HHb (Measured) ABG Methemoglobin Stalin Test A-a O2 Difference Respiratory Index Hgb O2 Saturation FiO2 Blood Gas Comments Crit Value Called To Crit Value Called By Crit Value Read Back Blood Gas Notified Time Sodium Potassium Chloride Carbon Dioxide Anion Gap BUN Creatinine Est GFR ( Amer) Est GFR (Non-Af Amer) POC Glucose (mg/dL) 96 152 H Random Glucose Lactic Acid 0.6 L Calcium Total Bilirubin AST ALT Alkaline Phosphatase Total Protein Albumin Globulin Albumin/Globulin Ratio Lipase Urine Color Urine Clarity Urine pH Ur Specific [place] Urine Protein Urine Glucose (UA) Urine Ketones Urine Blood Urine Nitrate Urine Bilirubin Urine Urobilinogen Ur Leukocyte Esterase Urine WBC (Auto) Urine RBC (Auto) Ur Squamous Epith Cells Urine Bacteria Urine Yeast (Budding) Serum Ketones Attending/Attestation - Attestation I have personally seen and examined this patient.: Yes I have fully participated in the care of the patient.: Yes I have reviewed all pertinent clinical information: Yes Notes (Text): 09/14/17 21:[address] Melissa Colvin to evaluate patient: incidental finding by CT scan of 5.5 cm probable right dermoid cyst. I agree with the above as documented by the Resident. Patient was received in bed [facility] at approximately 1845 hours; she was sleeping , somewhat arousable, not inclined to participate in any indepth evaluation at that time. Her was present. I advised the patient of my recommendation for a transvaginal ultrasound and that she can follow up with her primary equipment superintendent provider as an outpatient, once discharged. Patient was able to nod in agreement. Her appeared to be in agreement with this as well. Assessment: 56 y.o. postmenopausal female, admitted for dizziness, diarrhea, LLQ pain with incidental finding of right ovarian (possible dermoid) cyst with multiple medical co-morbidities. Pain and diarrhea appear to be improving. Patient is clinically stable. Plan: 1) As per primary medical team 2) transvaginal ultrasound 3) will follow up after ultrasound is resulted.
[2017-09-14] MEDS: metroNIDAZOLE IV 250mg/50 ml 250 MG/50 ML BAG IVPB SCH (17:26)
--- NOTE | 2017-09-14 19:05 | CP.PCM.HP ---
History of Present Illness - History of Present Illness History of Present Illness: A 56-year-old female with PMH -IHD [PCI done], anemia, anxiety, arthritis, asthma, depression, diabetes, HTN, hypercholesterolemia, hypothyroidism, malignancy of thyroid, rheumatoid arthritis and sleep apnea presents to the ER for evaluation of abdominal pain. C/Oabdominal pain for the last 2 days. Insidious in onset, progressive, vague, generalized, all over the abdomen, intensity of 6/10, not associated with meals. C/Ovomiting for the last 2 days. Nonbilious, nonbloody, containing only for particles, 2-4 episodes per day. No C/Oabdominal distention, morbidly disturbances, fever, chills, rigors, yellowish discoloration of urine and sclera. Present on Admission - Present on Admission Any Indicators Present on Admission: No Past Patient History - Infectious Disease Hx of Infectious Diseases: None - Past Medical History & Family History Past Medical History?: Yes - Past Social History Smoking Status: Never Smoked - CARDIAC Hx Cardiac Disorders: Yes Hx Hypercholesterolemia: Yes Hx Hypertension: Yes - PULMONARY Hx Respiratory Disorders: Yes Hx Asthma: Yes Hx Chronic Obstructive Pulmonary Disease (COPD): Yes Hx Sleep Apnea: Yes - NEUROLOGICAL Hx Neurological Disorder: Yes (Diabetic neuropathy) - HEENT Hx HEENT Problems: No - RENAL Hx Chronic Kidney Disease: No - ENDOCRINE/METABOLIC Hx Endocrine Disorders: Yes Hx Hypothyroidism: Yes - HEMATOLOGICAL/ONCOLOGICAL Hx Blood Disorders: Yes Hx Anemia: Yes - INTEGUMENTARY Hx Dermatological Problems: Yes Other/Comment: Hx BLE TMA incisions 2 neuromas in healing - MUSCULOSKELETAL/RHEUMATOLOGICAL Hx Musculoskeletal Disorders: Yes Hx Arthritis: Yes Hx Falls: No Hx Rheumatoid Arthritis: Yes - GASTROINTESTINAL Hx Gastrointestinal Disorders: Yes Hx Gastritis: Yes - GENITOURINARY/GYNECOLOGICAL Hx Genitourinary Disorders: No - PSYCHIATRIC Hx Psychophysiologic Disorder: Yes Hx Anxiety: Yes Hx Depression: Yes Hx Substance Use: No - SURGICAL HISTORY Hx Surgeries: Yes Hx Coronary Stent: Yes - ANESTHESIA Hx Anesthesia: Yes Hx Anesthesia Reactions: No Hx Malignant Hyperthermia: No Has any member of the family had a problem w/ anesthesia?: No Meds Allergies/Adverse Reactions: Allergies Allergy/AdvReac Type Severity Reaction Status Date / Time levofloxacin Allergy Intermediate RASH Verified 09/14/17 04:28 Penicillins Allergy Intermediate RASH Verified 09/14/17 04:28 Band-Aid Allergy Mild RASH Verified 09/14/17 04:28 hydromorphone AdvReac DELIRIUM Verified 09/14/17 04:28 fragrance Allergy Intermediate RASH Uncoded 09/14/17 04:28 Physical Exam - Constitutional Appears: Well - Head Exam Head Exam: ATRAUMATIC, NORMAL INSPECTION, NORMOCEPHALIC - Eye Exam Eye Exam: EOMI, Normal appearance, PERRL Pupil Exam: NORMAL ACCOMODATION, PERRL - ENT Exam ENT Exam: Mucous Membranes Moist, Normal Exam - Neck Exam Neck exam: Positive for: Normal Inspection - Respiratory Exam Respiratory Exam: Decreased Breath Sounds - Cardiovascular Exam Cardiovascular Exam: REGULAR RHYTHM, +S1, +S2 - GI/Abdominal Exam GI & Abdominal Exam: Diminished Bowel Sounds, Soft - Rectal Exam Rectal Exam: Deferred Results - Vital Signs Recent Vital Signs: Last Vital Signs Temp 98.1 F 09/14/17 15:37 Pulse 68 09/14/17 15:37 Resp 18 09/14/17 15:37 BP 124/69 09/14/17 15:37 Pulse Ox 98 09/14/17 15:37 - Labs Result Diagrams: 09/15/17 06:35 09/15/17 06:35 Labs: Laboratory Results - last 24 hr 09/14/17 09/14/17 09/14/17 04:49 04:49 06:29 WBC 10.4 RBC 4.43 Hgb 13.0 Hct 39.9 MCV 90.1 MCH 29.4 MCHC 32.7 L RDW 13.7 Plt Count 155 MPV 10.7 Neut % (Auto) 69.8 Lymph % (Auto) 20.0 [place] % (Auto) 6.4 Eos % (Auto) 3.3 Baso % (Auto) 0.5 Neut # 7.3 H Lymph # 2.1 [place] # 0.7 Eos # 0.3 Baso # 0.1 Puncture Site pCO2 pO2 HCO3 ABG pH ABG Total CO2 ABG O2 Saturation ABG Base Excess ABG Hemoglobin ABG Carboxyhemoglobin POC ABG HHb (Measured) ABG Methemoglobin Stalin Test A-a O2 Difference Respiratory Index Hgb O2 Saturation FiO2 Blood Gas Comments Crit Value Called To Crit Value Called By Crit Value Read Back Blood Gas Notified Time Sodium 135 Potassium 5.4 H Chloride 108 H Carbon Dioxide 10 L* D Anion Gap 22 H BUN 38 H Creatinine 1.2 Est GFR ( Amer) 56 Est GFR (Non-Af Amer) 46 POC Glucose (mg/dL) Random Glucose 119 H Lactic Acid Calcium 8.8 Total Bilirubin 1.3 AST 46 H D ALT 26 Alkaline Phosphatase 83 Total Protein 8.1 Albumin 4.3 Globulin 3.8 Albumin/Globulin Ratio 1.1 Lipase 428 H Urine Color Urine Clarity Urine pH Ur Specific [place] Urine Protein Urine Glucose (UA) Urine Ketones Urine Blood Urine Nitrate Urine Bilirubin Urine Urobilinogen Ur Leukocyte Esterase Urine WBC (Auto) Urine RBC (Auto) Ur Squamous Epith Cells Urine Bacteria Urine Yeast (Budding) Serum Ketones Negative 09/14/17 09/14/17 09/14/17 06:30 07:58 08:15 WBC RBC Hgb Hct MCV MCH MCHC RDW Plt Count MPV Neut % (Auto) Lymph % (Auto) [place] % (Auto) Eos % (Auto) Baso % (Auto) Neut # Lymph # [place] # Eos # Baso # Puncture Site Lr pCO2 30 L pO2 88 HCO3 14.8 L ABG pH 7.25 L ABG Total CO2 14.1 L ABG O2 Saturation 97.6 ABG Base Excess -12.9 L ABG Hemoglobin 7.9 L ABG Carboxyhemoglobin 1.4 POC ABG HHb (Measured) 2.3 ABG Methemoglobin 2.4 Stalin Test Pos A-a O2 Difference 24.0 Respiratory Index 0.3 Hgb O2 Saturation 93.9 L FiO2 21.0 Blood Gas Comments Low ph Crit Value Called To Natalia france Crit Value Called By James Crit Value Read Back Y Blood Gas Notified Time 638 Sodium Potassium Chloride Carbon Dioxide Anion Gap BUN Creatinine Est GFR ( Amer) Est GFR (Non-Af Amer) POC Glucose (mg/dL) 154 H Random Glucose Lactic Acid Calcium Total Bilirubin AST ALT Alkaline Phosphatase Total Protein Albumin Globulin Albumin/Globulin Ratio Lipase Urine Color Yellow Urine Clarity Clear Urine pH 5.0 Ur Specific [place] 1.015 Urine Protein Negative Urine Glucose (UA) Normal Urine Ketones Trace Urine Blood Negative Urine Nitrate Negative Urine Bilirubin Negative Urine Urobilinogen Normal Ur Leukocyte Esterase 2+ H Urine WBC (Auto) 10 H Urine RBC (Auto) 2 Ur Squamous Epith Cells 2 Urine Bacteria Mod H Urine Yeast (Budding) Rare H Serum Ketones 09/14/17 09/14/17 11:18 16:42 WBC RBC Hgb Hct MCV MCH MCHC RDW Plt Count MPV Neut % (Auto) Lymph % (Auto) [place] % (Auto) Eos % (Auto) Baso % (Auto) Neut # Lymph # [place] # Eos # Baso # Puncture Site pCO2 pO2 HCO3 ABG pH ABG Total CO2 ABG O2 Saturation ABG Base Excess ABG Hemoglobin ABG Carboxyhemoglobin POC ABG HHb (Measured) ABG Methemoglobin Stalin Test A-a O2 Difference Respiratory Index Hgb O2 Saturation FiO2 Blood Gas Comments Crit Value Called To Crit Value Called By Crit Value Read Back Blood Gas Notified Time Sodium Potassium Chloride Carbon Dioxide Anion Gap BUN Creatinine Est GFR ( Amer) Est GFR (Non-Af Amer) POC Glucose (mg/dL) 96 Random Glucose Lactic Acid 0.6 L Calcium Total Bilirubin AST ALT Alkaline Phosphatase Total Protein Albumin Globulin Albumin/Globulin Ratio Lipase Urine Color Urine Clarity Urine pH Ur Specific [place] Urine Protein Urine Glucose (UA) Urine Ketones Urine Blood Urine Nitrate Urine Bilirubin Urine Urobilinogen Ur Leukocyte Esterase Urine WBC (Auto) Urine RBC (Auto) Ur Squamous Epith Cells Urine Bacteria Urine Yeast (Budding) Serum Ketones
--- NOTE | 2017-09-14 20:36 | US ---
EXAM: US Pelvis Complete, Transabdominal US Pelvis, Transvaginal CLINICAL HISTORY: 56 years old, female; Pain; Pelvic pain; Additional info: Right adnexal mass - dermoid cyst/teratoma? TECHNIQUE: Real-time transabdominal and transvaginal pelvic ultrasound (complete) with image documentation. Transvaginal imaging was used for better evaluation of the endometrium and adnexa. COMPARISON: No relevant prior studies available. FINDINGS: Uterus/cervix: The uterus measures 6.4 x 2.8 x 3.4 cm. The endometrial stripe is not well seen. Ovaries: The ovaries are not seen as separate structures. Free fluid: No free fluid. Bladder: The bladder measures the bladder measures 7 x 5.6 x 8.6 cm for a volume of 174 cc. The contour of the distended bladder is normal. IMPRESSION: The endometrial stripe and ovaries are not well seen. The bladder is poorly distended. EXAM: US Pelvis, Transvaginal EXAM DATE/TIME: Exam ordered 09/14/2017 5:32 PM CLINICAL HISTORY: 56 years old, female; Pain; Pelvic pain; Additional info: Right adnexal mass - dermoid cyst/teratoma? TECHNIQUE: Real-time transvaginal pelvic ultrasound (complete) with image documentation. Transvaginal imaging was used for better evaluation of the endometrium and adnexa. COMPARISON: No relevant prior studies available. FINDINGS: Uterus/cervix: The uterus measures 5.7 x 2.5 x 4.1 cm. The endometrial stripe measures 3 mm. Right ovary: The right ovary measures 4.9 x 5.3 x 4.2 cm and contains a complex area with heterogeneous echotexture measuring 2.2 x 2.5 x 2.8 cm.. BBlood flow is noted in the right ovary on pulsed Doppler examination. Left ovary: The left ovary is not seen as a separate structure. Free fluid: No free fluid. Bladder: Empty bladder which cannot be evaluated with this probe. IMPRESSION: 1. Within the right ovary there is a focal area of heterogeneous echotexture which could correspond to the dermoid noted on recent CT scan. Those previous films are not available for comparison the time the study was reviewed. 2. Nonvisualization of the left ovary
[2017-09-14 22:53] LABS: TRANSITIONAL EPITHIAL < 1 /hpf (0-3); URINE BACTERIA RARE (<OCC); URINE BILIRUBIN NEGATIVE (NEGATIVE); URINE BLOOD NEGATIVE (NEGATIVE); URINE COLOR Yellow (YELLOW); URINE GLUCOSE (UA) NORMAL (Normal); URINE KETONE TRACE mg/dL (NEGATIVE); URINE LEUKOCYTE ESTERASE NEG Leu/uL (Negative); URINE PROTEIN NEGATIVE (NEGATIVE); URINE UROBILINOGEN NORMAL mg/dL (0.2-1.0); WBC URINE < 1 /hpf (0-5)
[2017-09-15] MEDS: metroNIDAZOLE IV 250mg/50 ml 250 MG/50 ML BAG IVPB SCH ×4 (00:04→23:55)
[2017-09-15] MEDS: SODIUM BICARBONATE IV SCH ×3 (04:50→18:05)
[2017-09-15] MEDS: [UNRECOGNIZED DRUG - OTHER] IV SCH ×3 (04:50→18:05)
[2017-09-15] MEDS: DEXTROSE IV SCH ×3 (04:50→18:05)
[2017-09-15 06:40] LABS: HEMATOCRIT 30.7 % (34.0-47.0); MEAN CELL VOLUME 90.6 fL (81.0-99.0); MEAN CORPUSCULAR HEMOGLOBIN 29.6 pg (27.0-31.0); MEAN CORPUSCULAR HGB CONC 32.6 g/dL (33.0-37.0); MEAN PLATELET VOLUME 11.2 fL (7.2-11.7); RED CELL DISTRIBUTION WIDTH 13.6 % (11.5-14.5); WHITE BLOOD COUNT 3.6 K/uL (4.8-10.8)
[2017-09-15 08:16] LABS: ALB/GLOB RATIO 1.3 (1.0-2.1); ALKALINE PHOSPHATASE 68 U/L (38-126); ALT/SGPT 29 U/L (9-52); AMYLASE 133 U/L (30-110); AST/SGOT 19 U/L (14-36); BILIRUBIN,TOTAL 0.5 mg/dL (0.2-1.3); BLOOD UREA NITROGEN 18 mg/dL (7-17); CALCIUM 7.8 mg/dl (8.6-10.4); CARBON DIOXIDE 21 mmol/L (22-30); CHLORIDE 107 mmol/L (98-107); GFR AFRICAN-AMERICAN > 60; GLUCOSE,RANDOM 154 mg/dL (65-105); MAGNESIUM 1.6 mg/dL (1.6-2.3); PHOSPHOROUS 2.6 mg/dL (2.5-4.5); POTASSIUM 4.2 mmol/L (3.6-5.2); SODIUM 138 mmol/L (132-148); TOTAL PROTEIN 5.4 g/dL (6.3-8.3)
[2017-09-15] MEDS: cefTRIAXone IV 1 gm in Dextros 50 ML IVPB SCH (10:09)
[2017-09-15] MEDS: Enoxaparin 40 mg Syringe SC SCH (10:11)
--- NOTE | 2017-09-15 11:03 | CP.PCM.PN ---
Subjective - Date & Time of Evaluation Date of Evaluation: 09/15/17 Time of Evaluation: 11:00 - Subjective Subjective: Still with nausea; had diarrhea yesterday c/o suprapubic pains remains on IV bicarb fluids amylase down to 133 Objective - Vital Signs/Intake and Output Vital Signs (last 24 hours): Temp Pulse Resp BP Pulse Ox 98.7 F 81 18 151/73 H 96 09/15/17 08:06 09/15/17 08:06 09/15/17 08:06 09/15/17 08:06 09/15/17 08:06 Intake and Output: 09/15/17 09/15/17 06:59 18:59 Intake Total 120 600 Balance 120 600 - Medications Medications: Current Medications Enoxaparin Sodium (Lovenox) 40 mg SC DAILY [facility] Last Admin: 09/15/17 10:11 Dose: 40 mg Sodium Bicarbonate 75 meq/ (Dextrose/Sodium Chloride) 1,000 mls @ 75 mls/hr IV .[id number] [facility] Last Admin: 09/15/17 04:50 Dose: Not Given Ceftriaxone Sodium (Rocephin Iv 1 Gm Duplex) 50 mls @ 100 mls/hr IVPB DAILY [facility] Last Admin: 09/15/17 10:09 Dose: 100 mls/hr Metronidazole (Flagyl) 250 mg in 50 mls @ 100 mls/hr IVPB Q8H [facility] Stop: 09/19/17 16:31 Last Admin: 09/15/17 08:00 Dose: 100 mls/hr Meclizine HCl (Antivert) 25 mg PO TID [facility] Last Admin: 09/15/17 09:19 Dose: 25 mg Ondansetron HCl (Zofran Inj) 4 mg IVP Q6H PRN PRN Reason: Nausea/Vomiting Last Admin: 09/14/17 17:23 Dose: 4 mg Pantoprazole Sodium (Protonix Inj) 40 mg IVPB DAILY [facility] Last Admin: 09/15/17 09:25 Dose: 40 mg Sodium Bicarbonate (Sodium Bicarbonate Tab) 650 mg PO Q6 [facility] Last Admin: 09/15/17 06:44 Dose: 650 mg - Labs Labs: 09/15/17 06:35 09/15/17 06:35 - Constitutional Appears: No Acute Distress, Chronically Ill - Head Exam Head Exam: ATRAUMATIC, NORMAL INSPECTION - Eye Exam Eye Exam: EOMI, Normal appearance - Neck Exam Neck Exam: Normal Inspection. absent: Tenderness - Respiratory Exam Respiratory Exam: Clear to Ausculation Bilateral, NORMAL BREATHING PATTERN - Cardiovascular Exam Cardiovascular Exam: REGULAR RHYTHM, +S1 - GI/Abdominal Exam GI & Abdominal Exam: Soft, Tenderness - Extremities Exam Extremities Exam: Normal Inspection. absent: Tenderness - Neurological Exam Neurological Exam: Alert, CN II-XII Intact - Skin Skin Exam: Dry, Warm Assessment and Plan (1) DM type 2 (diabetes mellitus, type 2) Status: Acute (2) Acute pancreatitis Status: Acute (3) Dermoid cyst of right ovary Status: Acute (4) Vomiting Status: Acute - Assessment and Plan (Free Text) Plan: continue IV fluids with bicarb transvaginal US IV ABs
--- NOTE | 2017-09-15 16:18 | CP.PCM.PN ---
<Evelin Conte - Last Filed: 09/15/17 16:20> Subjective - Date & Time of Evaluation Date of Evaluation: 09/15/17 Time of Evaluation: 16:14 - Subjective Subjective: Evelin Conte, PGY1, [facility] Note for Dr Ortiz: Pt seen and examined at bedside. No acute events overnight. Pt still complains of mild abdominal pain. No further episodes of vomiting and diarrhea since admission. No PO intake yesterday, but verbalizes that she would like to try liquid diet today. Still reports some dizziness, denies fever, chills, sob. 12 point ROS obtained and unremarkable, except as noted per HPI. Objective - Vital Signs/Intake and Output Vital Signs (last 24 hours): Temp Pulse Resp BP Pulse Ox 98.9 F 67 20 165/72 H 96 09/15/17 15:35 09/15/17 15:35 09/15/17 15:35 09/15/17 15:35 09/15/17 15:35 Intake and Output: 09/15/17 09/15/17 06:59 18:59 Intake Total 120 1050 Balance 120 1050 - Medications Medications: Current Medications Enoxaparin Sodium (Lovenox) 40 mg SC DAILY [facility] Last Admin: 09/15/17 10:11 Dose: 40 mg Sodium Bicarbonate 75 meq/ (Dextrose/Sodium Chloride) 1,000 mls @ 75 mls/hr IV .[id number] [facility] Last Admin: 09/15/17 13:30 Dose: 75 mls/hr Ceftriaxone Sodium (Rocephin Iv 1 Gm Duplex) 50 mls @ 100 mls/hr IVPB DAILY [facility] Last Admin: 09/15/17 10:09 Dose: 100 mls/hr Metronidazole (Flagyl) 250 mg in 50 mls @ 100 mls/hr IVPB Q8H [facility] Stop: 09/19/17 16:31 Last Admin: 09/15/17 08:00 Dose: 100 mls/hr Meclizine HCl (Antivert) 25 mg PO TID [facility] Last Admin: 09/15/17 13:31 Dose: 25 mg Ondansetron HCl (Zofran Inj) 4 mg IVP Q6H PRN PRN Reason: Nausea/Vomiting Last Admin: 09/14/17 17:23 Dose: 4 mg Pantoprazole Sodium (Protonix Inj) 40 mg IVPB DAILY [facility] Last Admin: 09/15/17 09:25 Dose: 40 mg Sodium Bicarbonate (Sodium Bicarbonate Tab) 650 mg PO Q6 [facility] Last Admin: 09/15/17 12:30 Dose: 650 mg - Labs Labs: 09/15/17 06:35 09/15/17 06:35 - Constitutional Appears: Non-toxic, Older Than Stated Age - Head Exam Head Exam: ATRAUMATIC, NORMOCEPHALIC - Eye Exam Eye Exam: EOMI, PERRL Pupil Exam: PERRL - ENT Exam ENT Exam: Mucous Membranes Dry - Respiratory Exam Respiratory Exam: Clear to Ausculation Bilateral. absent: Decreased Breath Sounds - Cardiovascular Exam Cardiovascular Exam: RRR, +S1, +S2. absent: Murmur - GI/Abdominal Exam GI & Abdominal Exam: Soft, Tenderness, Normal Bowel Sounds. absent: Distended, Firm, Guarding, Rigid, Mass, Organomegaly, Rebound Additional comments: Mild TTP in LLQ - Extremities Exam Extremities Exam: absent: Calf Tenderness, Pedal Edema - Neurological Exam Neurological Exam: Alert, Awake, Oriented x3 - Psychiatric Exam Psychiatric exam: Normal Affect - Skin Skin Exam: Dry, Normal Color, Warm Assessment and Plan - Assessment and Plan (Free Text) Assessment: 56 years old female with hx of DM with neuropathy, PVD,, HTN, presents for vomiting, abdominal pain, metabolic acidosis, renal insufficiency: Plan: - 2/2 likely colitis/diverticulitis vs gastroenteritis vs IBD vs gastritis vs ischemic bowel disease vs gastroparesis - Received Macrobid on 08/12/17 for UTI - Tranvaginal US 09/14/17: 2.2x2.5x2.8 cm heterogenous echotexture in right ovary - likely dermoid cyst/teratoma. Outpt followup with [facility], as per urogynecology physician consult. - BUN/Cr 38/1.2 - dehydrated. Received 1L NS in ED. IVF at 100/h. - T bili 0.5, AST 19. ALT 29, ALP 68, lipase 166, albumin 3.1 today - CT abd pelvis 09/12/17 shows no cholecystitis/pancreatitis/appendicitis. Mild colitis? mild perinephric stranding. Vascular calcifications in both kidneys. 5.5x5.5 cm complex mass in right adnexa - suggestive of teratoma. - Zofran prn, IV Protonix daily - CLD, advance as tolerated. - Abdominal US shows diffuse increased echogenicity of liver parenchyma. CBD 3.4 cm. No stones/pancreatitis. - Follow up blood and urine culture. - Send for c.diff, stool cultures, ova/parasites when pt has a BM. - Continue with Flagyl and Ceftriaxone IV for colitis. - Once pt's condition improves, pt will benefit from outpatient endoscopy and colonoscopy. Discussed with GI fellow and attending, Dr Ortiz. Evelin Conte, PGY1 <Thuan Ortiz Y - Last Filed: 09/15/17 19:15> Objective - Vital Signs/Intake and Output Vital Signs (last 24 hours): Temp Pulse Resp BP Pulse Ox 98.9 F 67 20 165/72 H 96 09/15/17 15:35 09/15/17 15:35 09/15/17 15:35 09/15/17 15:35 09/15/17 15:35 Intake and Output: 09/15/17 09/16/17 18:59 06:59 Intake Total 1050 Balance 1050 - Medications Medications: Current Medications Enoxaparin Sodium (Lovenox) 40 mg SC DAILY [facility] Last Admin: 09/15/17 10:11 Dose: 40 mg Sodium Bicarbonate 75 meq/ (Dextrose/Sodium Chloride) 1,000 mls @ 75 mls/hr IV .[id number] [facility] Last Admin: 09/15/17 13:30 Dose: 75 mls/hr Ceftriaxone Sodium (Rocephin Iv 1 Gm Duplex) 50 mls @ 100 mls/hr IVPB DAILY [facility] Last Admin: 09/15/17 10:09 Dose: 100 mls/hr Metronidazole (Flagyl) 250 mg in 50 mls @ 100 mls/hr IVPB Q8H [facility] Stop: 09/19/17 16:31 Last Admin: 09/15/17 17:07 Dose: 100 mls/hr Meclizine HCl (Antivert) 25 mg PO TID [facility] Last Admin: 09/15/17 17:05 Dose: 25 mg Ondansetron HCl (Zofran Inj) 4 mg IVP Q6H PRN PRN Reason: Nausea/Vomiting Last Admin: 09/14/17 17:23 Dose: 4 mg Pantoprazole Sodium (Protonix Inj) 40 mg IVPB DAILY [facility] Last Admin: 09/15/17 09:25 Dose: 40 mg Sodium Bicarbonate (Sodium Bicarbonate Tab) 650 mg PO Q6 [facility] Last Admin: 09/15/17 17:05 Dose: 650 mg - Labs Labs: 09/15/17 06:35 09/15/17 06:35 Attending/Attestation - Attestation I have personally seen and examined this patient.: Yes I have fully participated in the care of the patient.: Yes I have reviewed all pertinent clinical information, including history, physical exam and plan: Yes Notes (Text): 09/15/17 19:11 I have seen and examined patient with GI fellow and rn medical inpatient services. No acute events overnight, she is seen resting in bed comfortably. She continues to endorse LUQ/LLQ abdominal pain, though improved compared to yesterday. She had one bowel movement today with hard stool. She denies nausea, vomiting, fever/ chills. She was able to tolerate PO diet today without difficulty. Review of vitals from today shows elevated BP. DM / HTN PVD Abdominal pain, vomiting - colitis of unclear etiology Acute renal insufficiency, resolved - Diet as tolerated - Awaiting results of stool studies - Continue with antibiotic therapy, follow up blood cultures - Patient will require further outpatient endoscopic evaluation following resolution of acute symptoms. Office contact information provided to patient. Will continue to monitor clinical course.
--- NOTE | 2017-09-15 18:55 | CP.PCM.PN ---
Subjective - Date & Time of Evaluation Date of Evaluation: 09/15/17 Time of Evaluation: 12:00 - Subjective Subjective: clinically same Objective - Vital Signs/Intake and Output Vital Signs (last 24 hours): Temp Pulse Resp BP Pulse Ox 98.9 F 67 20 165/72 H 96 09/15/17 15:35 09/15/17 15:35 09/15/17 15:35 09/15/17 15:35 09/15/17 15:35 Intake and Output: 09/15/17 09/15/17 06:59 18:59 Intake Total 120 1050 Balance 120 1050 - Medications Medications: Current Medications Enoxaparin Sodium (Lovenox) 40 mg SC DAILY [facility] Last Admin: 09/15/17 10:11 Dose: 40 mg Sodium Bicarbonate 75 meq/ (Dextrose/Sodium Chloride) 1,000 mls @ 75 mls/hr IV .[id number] [facility] Last Admin: 09/15/17 13:30 Dose: 75 mls/hr Ceftriaxone Sodium (Rocephin Iv 1 Gm Duplex) 50 mls @ 100 mls/hr IVPB DAILY [facility] Last Admin: 09/15/17 10:09 Dose: 100 mls/hr Metronidazole (Flagyl) 250 mg in 50 mls @ 100 mls/hr IVPB Q8H [facility] Stop: 09/19/17 16:31 Last Admin: 09/15/17 17:07 Dose: 100 mls/hr Meclizine HCl (Antivert) 25 mg PO TID [facility] Last Admin: 09/15/17 17:05 Dose: 25 mg Ondansetron HCl (Zofran Inj) 4 mg IVP Q6H PRN PRN Reason: Nausea/Vomiting Last Admin: 09/14/17 17:23 Dose: 4 mg Pantoprazole Sodium (Protonix Inj) 40 mg IVPB DAILY [facility] Last Admin: 09/15/17 09:25 Dose: 40 mg Sodium Bicarbonate (Sodium Bicarbonate Tab) 650 mg PO Q6 [facility] Last Admin: 09/15/17 17:05 Dose: 650 mg - Labs Labs: 09/15/17 06:35 09/15/17 06:35 - Constitutional Appears: Well - Head Exam Head Exam: ATRAUMATIC, NORMAL INSPECTION, NORMOCEPHALIC - Eye Exam Eye Exam: EOMI, Normal appearance, PERRL Pupil Exam: NORMAL ACCOMODATION, PERRL - ENT Exam ENT Exam: Mucous Membranes Moist, Normal Exam - Neck Exam Neck Exam: Full ROM, Normal Inspection. absent: Lymphadenopathy - Respiratory Exam Respiratory Exam: Clear to Ausculation Bilateral, NORMAL BREATHING PATTERN - Cardiovascular Exam Cardiovascular Exam: REGULAR RHYTHM, +S1, +S2. absent: Murmur - GI/Abdominal Exam GI & Abdominal Exam: Soft, Normal Bowel Sounds. absent: Tenderness - Rectal Exam Rectal Exam: Deferred - Extremities Exam Extremities Exam: Full ROM, Normal Capillary Refill, Normal Inspection. absent : Joint Swelling, Pedal Edema - Back Exam Back Exam: NORMAL INSPECTION Assessment and Plan (1) Abdominal discomfort Status: Acute (2) Abdominal pain Status: Acute (3) Abrasion Status: Acute (4) Acute delirium Status: Acute (5) Acute renal failure (ARF) Status: Acute (6) Acute weakness Status: Acute (7) Ataxia Status: Acute (8) Back pain Status: Acute (9) Back pain of lumbar region with sciatica Status: Acute (10) Cellulitis and abscess of foot Status: Acute (11) Chest pain Status: Acute (12) Chest pain at rest Status: Acute (13) Chronic back pain Status: Acute (14) Chronic diabetic ulcer of left foot determined by examination Status: Acute (15) Chronic diabetic ulcer of right foot determined by examination Status: Acute (16) Chronic pain Status: Acute (17) Dermoid cyst Status: Acute (18) Dermoid cyst of right ovary Status: Acute (19) Diabetes Status: Acute (20) Diabetic foot infection Status: Acute (21) Diarrhea Status: Acute (22) Elevated lipase Status: Acute (23) Foot pain Status: Acute (24) Fracture of foot bone, right, closed Status: Acute (25) GI bleed Status: Acute (26) Gangrene associated with type 2 diabetes mellitus Status: Acute (27) Gastroenteritis Status: Acute (28) Generalized muscle weakness Status: Acute (29) Head injury Status: Acute (30) Herniated disc Status: Acute (31) Hyperkalemia Status: Acute (32) Influenza-like illness Status: Acute (33) Low back pain Status: Acute (34) Pneumonia Status: Acute (35) Post-op bleeding Status: Acute (36) Puncture wound Status: Acute (37) Renal insufficiency Status: Acute (38) Status post transmetatarsal amputation of left foot Status: Acute (39) Status post transmetatarsal amputation of right foot Status: Acute (40) Teratoma of ovary Status: Acute (41) Tinea pedis Status: Acute (42) UTI (urinary tract infection) Status: Acute (43) Unsteady gait Status: Acute (44) Adjustment disorder with anxiety Status: Chronic (45) Anemia Status: Chronic (46) Anxiety Status: Chronic (47) Bronchial asthma Status: Chronic (48) Chronic painful diabetic neuropathy Status: Chronic (49) DM type 2 (diabetes mellitus, type 2) Status: Chronic (50) Debility Status: Chronic (51) Diabetes mellitus with hyperglycemia Status: Chronic (52) Diabetic neuropathy Status: Chronic (53) High cholesterol Status: Chronic (54) Hypertension Status: Chronic (55) Hypothyroidism Status: Chronic (56) Intractable neuropathic pain of foot Status: Chronic (57) Osteomyelitis of foot, right, acute Status: Chronic (58) Osteomyelitis of right foot Status: Chronic (59) PAD (peripheral artery disease) Status: Chronic (60) Peripheral vascular disease Status: Chronic (61) Post-surgical hypothyroidism Status: Chronic (62) Sleep apnea Status: Chronic (63) Type 2 diabetes mellitus with hyperglycemia Status: Chronic (64) Type 2 diabetes mellitus with other specified complication Status: Chronic (65) Acute pancreatitis Status: Resolved (66) Vomiting Status: Resolved - Assessment and Plan (Free Text) Plan: Patient examined. Patient better. Nausea present. Continue ceftriaxone & metronidazole. Continue meclizine. Continue supportive care.
--- NOTE | 2017-09-15 21:53 | CARD ---
APPROVED REPORT EKG Measurement Heart [id number] <Conclusion> Normal sinus rhythm Left axis deviation Moderate voltage criteria for LVH, may be normal variant Abnormal ECG
[2017-09-16] MEDS: SODIUM BICARBONATE IV SCH ×2 (03:09→07:30)
[2017-09-16] MEDS: [UNRECOGNIZED DRUG - OTHER] IV SCH ×2 (03:09→07:30)
[2017-09-16] MEDS: DEXTROSE IV SCH ×2 (03:09→07:30)
[2017-09-16] MEDS ORDERED: Pantoprazole 40 mg EC Tab PO SCH (07:30)
--- NOTE | 2017-09-16 07:52 | CP.PCM.PN ---
Subjective - Date & Time of Evaluation Date of Evaluation: 09/16/17 Time of Evaluation: 07:48 - Subjective Subjective: Evelin Conte, PGY1, GI [facility] Note for Dr Landry: Pt seen and examined at bedside. Pt had an episode of dizziness and nausea yesterday night, while going to the commode, relieved with Meclizien and zofran. Pt tolerated regular bland diet yesterday. This AM, pt reports good appetite and is hungry. Reports minimal dizziness. Denies nausea, vomiting, abdominal pain, diarrhea. Pt had a hard BM yesterday, no blood. Would like to go home today. 12 point ROS obtained and unremarkable, except as noted per HPI. Objective - Vital Signs/Intake and Output Vital Signs (last 24 hours): Temp Pulse Resp BP Pulse Ox 98.5 F 56 L 20 150/70 97 09/15/17 23:10 09/16/17 03:30 09/15/17 23:10 09/15/17 23:10 09/15/17 23:10 Intake and Output: 09/16/17 09/16/17 06:59 18:59 Intake Total 880 600 Output Total 100 Balance 780 600 - Medications Medications: Current Medications Enoxaparin Sodium (Lovenox) 40 mg SC DAILY [facility] Last Admin: 09/15/17 10:11 Dose: 40 mg Sodium Bicarbonate 75 meq/ (Dextrose/Sodium Chloride) 1,000 mls @ 75 mls/hr IV .[id number] [facility] Last Admin: 09/16/17 03:09 Dose: 75 mls/hr Ceftriaxone Sodium (Rocephin Iv 1 Gm Duplex) 50 mls @ 100 mls/hr IVPB DAILY [facility] Last Admin: 09/15/17 10:09 Dose: 100 mls/hr Metronidazole (Flagyl) 250 mg in 50 mls @ 100 mls/hr IVPB Q8H [facility] Stop: 09/19/17 16:31 Last Admin: 09/15/17 23:55 Dose: 100 mls/hr Meclizine HCl (Antivert) 25 mg PO TID [facility] Last Admin: 09/15/17 17:05 Dose: 25 mg Ondansetron HCl (Zofran Inj) 4 mg IVP Q6H PRN PRN Reason: Nausea/Vomiting Last Admin: 09/16/17 02:18 Dose: 4 mg Pantoprazole Sodium (Protonix Ec Tab) 40 mg PO ACB [facility] Sodium Bicarbonate (Sodium Bicarbonate Tab) 650 mg PO Q6 [facility] Last Admin: 09/16/17 05:37 Dose: 650 mg - Labs Labs: 09/15/17 06:35 09/15/17 06:35 - Constitutional Appears: Non-toxic, Older Than Stated Age - Head Exam Head Exam: ATRAUMATIC, NORMOCEPHALIC - Eye Exam Eye Exam: EOMI, PERRL Pupil Exam: PERRL - ENT Exam ENT Exam: Mucous Membranes Moist - Respiratory Exam Respiratory Exam: Clear to Ausculation Bilateral. absent: Respiratory Distress - Cardiovascular Exam Cardiovascular Exam: RRR, +S1, +S2. absent: Murmur - GI/Abdominal Exam GI & Abdominal Exam: Soft, Normal Bowel Sounds. absent: Distended, Guarding, Rigid, Tenderness, Mass, Organomegaly, Rebound - Extremities Exam Extremities Exam: absent: Calf Tenderness, Pedal Edema - Back Exam Back Exam: NORMAL INSPECTION - Neurological Exam Neurological Exam: Alert, Awake, Normal Gait - Psychiatric Exam Psychiatric exam: Normal Affect - Skin Skin Exam: Dry, Normal Color, Warm Assessment and Plan - Assessment and Plan (Free Text) Assessment: 56 years old female with hx of DM with neuropathy, PVD, HTN, presents for vomiting, abdominal pain, metabolic acidosis, renal insufficiency: Plan: - 2/2 likely colitis/diverticulitis vs gastroenteritis vs IBD vs gastritis vs ischemic bowel disease vs gastroparesis - Received Macrobid on 08/12/17 for UTI - Transvaginal US 09/14/17: 2.2x2.5x2.8 cm heterogenous echotexture in right ovary - likely dermoid cyst/teratoma. Outpt followup with [facility], as per Dr Harrell. - BUN/Cr 38/1.2 - dehydrated. Received 1L NS in ED. IVF at 100/h. - T bili 0.5, AST 19. ALT 29, ALP 68, lipase 166, albumin 3.1 today - CT abd pelvis 09/12/17 shows no cholecystitis/pancreatitis/appendicitis. Mild colitis? mild perinephric stranding. Vascular calcifications in both kidneys. 5.5x5.5 cm complex mass in right adnexa - suggestive of teratoma. - Abdominal US shows diffuse increased echogenicity of liver parenchyma. CBD 3.4 cm. No stones/pancreatitis. - Follow up blood and urine culture. - F/u c.diff, stool cultures, ova/parasites. - Continue with Flagyl and Ceftriaxone for colitis. - Zofran prn, IV Protonix daily - Pt tolerating regular diet yesterday night. Pt had good appetite, no nausea/ vomiting for past 24+ hours, denies abdominal pain this AM. Reports improvement in dizziness. - Can discharge with PO antibiotics. Pt will benefit from outpatient endoscopic eval once this acute condition resolves. - Thank you for your consult. Please reconsult us if any further concerns. Discussed with GI fellow and attending, Dr Landry. Evelin Conte, PGY1
[2017-09-16 08:26] VITALS: RESP 18
[2017-09-16] MEDS: metroNIDAZOLE IV 250mg/50 ml 250 MG/50 ML BAG IVPB SCH (08:40)
[2017-09-16] MEDS: Enoxaparin 40 mg Syringe SC SCH (09:44)
[2017-09-16] MEDS: cefTRIAXone IV 1 gm in Dextros 50 ML IVPB SCH (10:30)
[2017-09-16 12:10] LABS: FECAL LEUKOCYTES NEGATIVE (NEGATIVE)
--- NOTE | 2017-09-16 12:26 | CP.PCM.PN ---
<Evelin Conte - Last Filed: 09/16/17 12:29> Subjective - Date & Time of Evaluation Date of Evaluation: 09/16/17 Time of Evaluation: 12:26 - Subjective Subjective: Evelin Conte, PGY1, GI [place] Note for Dr Landry: Pt seen and examined at bedside. Pt had an episode of dizziness and nausea yesterday night while going to the commode, relieved with Meclizine and zofran. Pt tolerated regular bland diet yesterday. This AM, pt reports good appetite and is hungry. Reports minimal dizziness. Denies nausea, vomiting, abdominal pain, diarrhea. Pt had a hard BM yesterday, no blood. Would like to go home today. 12 point ROS obtained and unremarkable, except as noted per HPI. Objective - Vital Signs/Intake and Output Vital Signs (last 24 hours): Temp Pulse Resp BP Pulse Ox 98.3 F 62 18 169/81 H 98 09/16/17 08:25 09/16/17 08:25 09/16/17 08:25 09/16/17 08:25 09/16/17 08:25 Intake and Output: 09/16/17 09/16/17 06:59 18:59 Intake Total 880 600 Output Total 100 Balance 780 600 - Medications Medications: Current Medications Enoxaparin Sodium (Lovenox) 40 mg SC DAILY [facility] Last Admin: 09/16/17 09:44 Dose: 40 mg Sodium Bicarbonate 75 meq/ (Dextrose/Sodium Chloride) 1,000 mls @ 75 mls/hr IV .[id number] [facility] Last Admin: 09/16/17 07:30 Dose: Not Given Ceftriaxone Sodium (Rocephin Iv 1 Gm Duplex) 50 mls @ 100 mls/hr IVPB DAILY [facility] Last Admin: 09/16/17 10:30 Dose: 100 mls/hr Metronidazole (Flagyl) 250 mg in 50 mls @ 100 mls/hr IVPB Q8H [facility] Stop: 09/19/17 16:31 Last Admin: 09/16/17 08:40 Dose: 100 mls/hr Meclizine HCl (Antivert) 25 mg PO TID [facility] Last Admin: 09/16/17 09:44 Dose: 25 mg Ondansetron HCl (Zofran Inj) 4 mg IVP Q6H PRN PRN Reason: Nausea/Vomiting Last Admin: 09/16/17 02:18 Dose: 4 mg Pantoprazole Sodium (Protonix Ec Tab) 40 mg PO ACB [facility] Last Admin: 09/16/17 07:30 Dose: 40 mg Sodium Bicarbonate (Sodium Bicarbonate Tab) 650 mg PO Q6 [facility] Last Admin: 09/16/17 12:25 Dose: 650 mg - Labs Labs: 09/15/17 06:35 09/15/17 06:35 - Constitutional Appears: Toxic, Older Than Stated Age - Head Exam Head Exam: ATRAUMATIC, NORMOCEPHALIC - Eye Exam Eye Exam: EOMI, PERRL. absent: Scleral icterus Pupil Exam: PERRL - ENT Exam ENT Exam: Mucous Membranes Moist - Respiratory Exam Respiratory Exam: Clear to Ausculation Bilateral. absent: Respiratory Distress - Cardiovascular Exam Cardiovascular Exam: RRR, +S1, +S2. absent: Murmur - GI/Abdominal Exam GI & Abdominal Exam: Soft, Normal Bowel Sounds. absent: Distended, Guarding, Rigid, Tenderness, Mass, Organomegaly, Rebound - Extremities Exam Extremities Exam: absent: Calf Tenderness, Pedal Edema - Back Exam Back Exam: NORMAL INSPECTION - Neurological Exam Neurological Exam: Alert, Awake, Oriented x3 - Psychiatric Exam Psychiatric exam: Normal Affect, Normal Mood - Skin Skin Exam: Dry, Normal Color, Warm. absent: Pallor Assessment and Plan - Assessment and Plan (Free Text) Assessment: 56 years old female with hx of DM with neuropathy, PVD, HTN, presents for vomiting, abdominal pain, metabolic acidosis, renal insufficiency: Plan: - 2/2 likely colitis/diverticulitis vs gastroenteritis vs IBD vs gastritis vs ischemic bowel disease vs gastroparesis - Received Macrobid on 08/12/17 for UTI - Transvaginal US 09/14/17: 2.2x2.5x2.8 cm heterogenous echotexture in right ovary - likely dermoid cyst/teratoma. Outpt followup with [facility], as per Dr Harrell. - BUN/Cr 38/1.2 - dehydrated. Received 1L NS in ED. IVF at 100/h. - T bili 0.5, AST 19. ALT 29, ALP 68, lipase 166, albumin 3.1 today - CT abd pelvis 09/12/17 shows no cholecystitis/pancreatitis/appendicitis. Mild colitis? mild perinephric stranding. Vascular calcifications in both kidneys. 5.5x5.5 cm complex mass in right adnexa - suggestive of teratoma. - Abdominal US shows diffuse increased echogenicity of liver parenchyma. CBD 3.4 cm. No stones/pancreatitis. - Follow up blood and urine culture. - F/u c.diff, stool cultures, ova/parasites. - Continue with Flagyl and Ceftriaxone for colitis. - Zofran prn, IV Protonix daily - Pt tolerating regular diet yesterday night. Pt had good appetite, no nausea/ vomiting for past 24+ hours, denies abdominal pain this AM. Reports improvement in dizziness. - Can discharge with PO antibiotics. Pt will benefit from outpatient endoscopic eval once this acute condition resolves. - Thank you for your consult. Please reconsult us if any further concerns. Discussed with GI fellow and attending, Dr Landry. Evelin Conte, PGY1 <Richard Landry - Last Filed: 09/16/17 15:21> Objective - Vital Signs/Intake and Output Vital Signs (last 24 hours): Temp Pulse Resp BP Pulse Ox 98.3 F 62 18 169/81 H 98 09/16/17 08:25 09/16/17 08:25 09/16/17 08:25 09/16/17 08:25 09/16/17 08:25 Intake and Output: 09/16/17 09/16/17 06:59 18:59 Intake Total 880 1600 Output Total 100 Balance 780 1600 - Medications Medications: Current Medications Amlodipine Besylate (Norvasc) 5 mg PO DAILY [facility] Enoxaparin Sodium (Lovenox) 40 mg SC DAILY [facility] Last Admin: 09/16/17 09:44 Dose: 40 mg Sodium Bicarbonate 75 meq/ (Dextrose/Sodium Chloride) 1,000 mls @ 75 mls/hr IV .[id number] [facility] Last Admin: 09/16/17 07:30 Dose: Not Given Ceftriaxone Sodium (Rocephin Iv 1 Gm Duplex) 50 mls @ 100 mls/hr IVPB DAILY [facility] Last Admin: 09/16/17 10:30 Dose: 100 mls/hr Metronidazole (Flagyl) 250 mg in 50 mls @ 100 mls/hr IVPB Q8H [facility] Stop: 09/19/17 16:31 Last Admin: 09/16/17 08:40 Dose: 100 mls/hr Insulin Human Regular (Novolin R) 0 unit SC ACHS [facility] PRN Reason: Protocol Meclizine HCl (Antivert) 25 mg PO TID [facility] Last Admin: 09/16/17 12:59 Dose: 25 mg Ondansetron HCl (Zofran Inj) 4 mg IVP Q6H PRN PRN Reason: Nausea/Vomiting Last Admin: 09/16/17 02:18 Dose: 4 mg Pantoprazole Sodium (Protonix Ec Tab) 40 mg PO ACB [facility] Last Admin: 09/16/17 07:30 Dose: 40 mg Pregabalin (Lyrica) 100 mg PO TID [facility] Last Admin: 09/16/17 13:52 Dose: 100 mg Sodium Bicarbonate (Sodium Bicarbonate Tab) 650 mg PO Q6 [facility] Last Admin: 09/16/17 12:25 Dose: 650 mg - Labs Labs: 09/15/17 06:35 09/15/17 06:35 Attending/Attestation - Attestation I have personally seen and examined this patient.: Yes I have fully participated in the care of the patient.: Yes I have reviewed all pertinent clinical information, including history, physical exam and plan: Yes Notes (Text): 09/16/17 15:19 56 years old female with h/o DM, PVD, HTN a/w vomiting, abdominal pain, metabolic acidosis, renal insufficiency. 1. Abdominal pain 2. Diarrhea Plan: -significantly improved -pain almost resolved, tolerating diet, no diarrhea today -infectious workup negative -continue abx -diet as tolerated -ok for discharge today
--- NOTE | 2017-09-16 14:13 | CP.PCM.PN ---
Subjective - Date & Time of Evaluation Date of Evaluation: 09/16/17 Time of Evaluation: 14:11 - Subjective Subjective: Alert; feels much better Eating foods/ liquids well now BP moderately elevated no more pains Objective - Vital Signs/Intake and Output Vital Signs (last 24 hours): Temp Pulse Resp BP Pulse Ox 98.3 F 62 18 169/81 H 98 09/16/17 08:25 09/16/17 08:25 09/16/17 08:25 09/16/17 08:25 09/16/17 08:25 Intake and Output: 09/16/17 09/16/17 06:59 18:59 Intake Total 880 1600 Output Total 100 Balance 780 1600 - Medications Medications: Current Medications Enoxaparin Sodium (Lovenox) 40 mg SC DAILY [facility] Last Admin: 09/16/17 09:44 Dose: 40 mg Sodium Bicarbonate 75 meq/ (Dextrose/Sodium Chloride) 1,000 mls @ 75 mls/hr IV .[id number] [facility] Last Admin: 09/16/17 07:30 Dose: Not Given Ceftriaxone Sodium (Rocephin Iv 1 Gm Duplex) 50 mls @ 100 mls/hr IVPB DAILY [facility] Last Admin: 09/16/17 10:30 Dose: 100 mls/hr Metronidazole (Flagyl) 250 mg in 50 mls @ 100 mls/hr IVPB Q8H [facility] Stop: 09/19/17 16:31 Last Admin: 09/16/17 08:40 Dose: 100 mls/hr Insulin Human Regular (Novolin R) 0 unit SC ACHS [facility] PRN Reason: Protocol Meclizine HCl (Antivert) 25 mg PO TID [facility] Last Admin: 09/16/17 12:59 Dose: 25 mg Ondansetron HCl (Zofran Inj) 4 mg IVP Q6H PRN PRN Reason: Nausea/Vomiting Last Admin: 09/16/17 02:18 Dose: 4 mg Pantoprazole Sodium (Protonix Ec Tab) 40 mg PO ACB [facility] Last Admin: 09/16/17 07:30 Dose: 40 mg Pregabalin (Lyrica) 100 mg PO TID [facility] Last Admin: 09/16/17 13:52 Dose: 100 mg Sodium Bicarbonate (Sodium Bicarbonate Tab) 650 mg PO Q6 [facility] Last Admin: 09/16/17 12:25 Dose: 650 mg - Labs Labs: 11/30/17 06:35 09/15/17 06:35 - Constitutional Appears: No Acute Distress, Chronically Ill - Head Exam Head Exam: ATRAUMATIC, NORMAL INSPECTION - Eye Exam Eye Exam: EOMI, Normal appearance - Neck Exam Neck Exam: Normal Inspection. absent: Tenderness - Respiratory Exam Respiratory Exam: Clear to Ausculation Bilateral, NORMAL BREATHING PATTERN - Cardiovascular Exam Cardiovascular Exam: REGULAR RHYTHM, +S1 - GI/Abdominal Exam GI & Abdominal Exam: Soft. absent: Tenderness - Extremities Exam Extremities Exam: Normal Inspection. absent: Tenderness - Neurological Exam Neurological Exam: Alert, CN II-XII Intact - Skin Skin Exam: Dry, Warm Assessment and Plan (1) DM type 2 (diabetes mellitus, type 2) Status: Chronic (2) Acute pancreatitis Status: Resolved (3) Dermoid cyst of right ovary Status: Acute (4) Vomiting Status: Resolved - Assessment and Plan (Free Text) Plan: Start BP meds likely discharge- can follow up as outpt
--- NOTE | 2017-09-16 15:58 | CP.PCM.PN ---
Subjective - Date & Time of Evaluation Date of Evaluation: 09/16/17 Time of Evaluation: 15:56 - Subjective Subjective: PT SEEN BY DR. Kyle CAM AND CLEARED FOR D/C. ALL CONSULTS CLEARED PT. PT TO F/ U WITH Lo CAM IN THE OFFICE TOMORROW. CONTINUE 2 PO ABX PER GI RECS. CONTINUE SOD BICARB TABS PER DR. CAM AND HE WILL CHECK HER LEVELS TOMORROW IN THE OFFICE. ALL D/C, RX, AND F/U DISCUSSED WITH PT. THE BELOW INFO PROVIDED ON D/C PAPERWORK. NO FURTHER ORDERS. FOLLOW UP WITH DR. CAM IN THE OFFICE TOMORROW MORNING---CALL THE OFFICE TOMORROW TO SEE WHAT TIME YOU HAVE TO GO FOR BLOOD WORK. FOLLOW UP WITH Lo BURNS IN THE OFFICE WITHIN 2-3 WEEKS---CALL FOR APPT TIME. FOLLOW UP WITH DR. MILIAN (STOMACH DOCTOR) IN THE OFFICE FOR FURTHER TESTING WITHIN 2-3 WEEKS---CALL FOR APPT TIME. FOLLOW UP WITH YOUR [facility] OFFICER IN THE OFFICE FOR FURTHER TESTING WITHIN 2-3 WEEKS---CALL FOR APPT TIME CONTINUE ALL MEDICATIONS USUAL AND PRESCRIBED. YOUR NORVASC HAS BEEN DECREASED BY YOUR KIDNEY DOCTOR; YOU WILL NOW TAKE 5 MG ONCE A DAY. YOU HAVE ALSO BEEN PRESCRIBED BY DR. Kyle CAM 2 ANTIBIOTICS FOR 1 WEEK---TAKE EXACTLY PRESCRIBED. YOU WILL ALSO CONTINUE SODIUM BICARB TABLETS PRESCRIBED. DR. CAM WILL CHECK YOUR BLOOD WORK TOMORROW TO SEE IF YOU NEED TO CONTINUE TAKING THIS. CONTACT DR. CAM FOR FURTHER CONCERNS OR QUESTIONS. Objective - Vital Signs/Intake and Output Vital Signs (last 24 hours): Temp Pulse Resp BP Pulse Ox 98.3 F 62 18 169/81 H 98 09/16/17 08:25 09/16/17 08:25 09/16/17 08:25 09/16/17 08:25 09/16/17 08:25 Intake and Output: 09/16/17 09/16/17 06:59 18:59 Intake Total 880 1600 Output Total 100 Balance 780 1600 - Medications Medications: Current Medications Amlodipine Besylate (Norvasc) 5 mg PO DAILY [facility] Enoxaparin Sodium (Lovenox) 40 mg SC DAILY [facility] Last Admin: 09/16/17 09:44 Dose: 40 mg Sodium Bicarbonate 75 meq/ (Dextrose/Sodium Chloride) 1,000 mls @ 75 mls/hr IV .[id number] [facility] Last Admin: 09/16/17 07:30 Dose: Not Given Ceftriaxone Sodium (Rocephin Iv 1 Gm Duplex) 50 mls @ 100 mls/hr IVPB DAILY [facility] Last Admin: 09/16/17 10:30 Dose: 100 mls/hr Metronidazole (Flagyl) 250 mg in 50 mls @ 100 mls/hr IVPB Q8H [facility] Stop: 09/19/17 16:31 Last Admin: 09/16/17 08:40 Dose: 100 mls/hr Insulin Human Regular (Novolin R) 0 unit SC ACHS [facility] PRN Reason: Protocol Meclizine HCl (Antivert) 25 mg PO TID [facility] Last Admin: 09/16/17 12:59 Dose: 25 mg Ondansetron HCl (Zofran Inj) 4 mg IVP Q6H PRN PRN Reason: Nausea/Vomiting Last Admin: 09/16/17 02:18 Dose: 4 mg Pantoprazole Sodium (Protonix Ec Tab) 40 mg PO ACB [facility] Last Admin: 09/16/17 07:30 Dose: 40 mg Pregabalin (Lyrica) 100 mg PO TID [facility] Last Admin: 09/16/17 13:52 Dose: 100 mg Sodium Bicarbonate (Sodium Bicarbonate Tab) 650 mg PO Q6 [facility] Last Admin: 09/16/17 12:25 Dose: 650 mg - Labs Labs: 09/15/17 06:35 09/15/17 06:35
[2017-09-16] MEDS ORDERED: (Novolin R) Insulin Human Regular 100 units/ml vial SC SCH (16:30)
[2017-09-16 16:50] VITALS: BP 180/83; PULSE 66; TEMP 98.4; O2SAT 95
== END 2017-09-16 17:42 | disposition home or self-care (01) | DRG 392 ==
LOC: C.ER 04:10 → C.9E 06:49 → C.6T 11:12
PROVIDERS: ADMIT Internal Medicine Nephrology; ATTEND Internal Medicine Nephrology
DX: K52.9 Noninfective gastroenteritis and colitis, unspecified (principal); E11.22 Type 2 diabetes mellitus with diabetic chronic kidney disease; E11.40 Type 2 diabetes mellitus with diabetic neuropathy, unspecified; N17.9 Acute kidney failure, unspecified; E87.2 Acidosis; N18.3 Chronic kidney disease, stage 3 (moderate); E11.52 Type 2 diabetes mellitus with diabetic peripheral angiopathy with gangrene; N39.0 Urinary tract infection, site not specified; D27.0 Benign neoplasm of right ovary; D64.9 Anemia, unspecified; E11.621 Type 2 diabetes mellitus with foot ulcer; E11.628 Type 2 diabetes mellitus with other skin complications; E11.65 Type 2 diabetes mellitus with hyperglycemia; E11.69 Type 2 diabetes mellitus with other specified complication; E86.0 Dehydration; E87.5 Hyperkalemia; E89.0 Postprocedural hypothyroidism; I12.9 Hypertensive chronic kidney disease with stage 1 through stage 4 chronic kidney disease, or unspecified chronic kidney disease; J44.9 Chronic obstructive pulmonary disease, unspecified; L97.519 Non-pressure chronic ulcer of other part of right foot with unspecified severity; L97.529 Non-pressure chronic ulcer of other part of left foot with unspecified severity; I25.10 Atherosclerotic heart disease of native coronary artery without angina pectoris; M06.9 Rheumatoid arthritis, unspecified; E78.00 Pure hypercholesterolemia, unspecified; F43.22 Adjustment disorder with anxiety; G89.29 Other chronic pain; N92.6 Irregular menstruation, unspecified; M54.40 Lumbago with sciatica, unspecified side; E78.5 Hyperlipidemia, unspecified; G47.30 Sleep apnea, unspecified; B35.3 Tinea pedis; Z85.850 Personal history of malignant neoplasm of thyroid; Z95.820 Peripheral vascular angioplasty status with implants and grafts; Z95.5 Presence of coronary angioplasty implant and graft

== ENCOUNTER 2017-10-22 08:04 | Inpatient (IN) | payer MEDICARE ==
[2017-10-22] MEDS ORDERED: Albuterol-Ipratrop 3 mg / 0.5 (3 ml) UD IH STA (08:25)
--- NOTE | 2017-10-22 08:27 | C.PDOC ---
History Of Present Illness 57F c/o productive cough, subjective fever, sob, congestion, runny nose for 4 days. she has not taken anything for her sx at home. Time Seen by Provider: 10/22/17 08:18 Chief Complaint (Nursing): Cough, Cold, Congestion Past Medical History Vital Signs: Last Vital Signs Temp 98.1 F 10/25/17 16:29 Pulse 90 10/25/17 16:29 Resp 20 10/25/17 16:29 BP 150/89 10/25/17 16:29 Pulse Ox 96 10/25/17 16:29 - Medical History PMH: Anemia, Anxiety, Arthritis, Asthma, COPD, Depression, Diabetes (type I and II, associated diabetic neuropathy), Gastritis, HTN, Hypercholesterolemia, Hyperlipidemia, Hypothyroidism, Malignancy (Thyroid), Rheumatoid Arthritis, Sleep Apnea Surgical History: Coronary Stent - [facility] Procedures AMPUTATION THROUGH FOOT (05/13/15) ANGIOPLASTY OF OTHER NON-CORONARY VESSEL(S) (03/25/15) ATTACH PEDICLE GRAFT NEC (05/13/15) CONTRAST ARTERIOGRAM-LEG (03/25/15) DETACHMENT AT LEFT FOOT, PARTIAL 1ST RAY, OPEN APPROACH (11/04/15) DETACHMENT AT LEFT FOOT, PARTIAL 2ND RAY, OPEN APPROACH (11/04/15) DETACHMENT AT LEFT FOOT, PARTIAL 3RD RAY, OPEN APPROACH (11/04/15) DETACHMENT AT LEFT FOOT, PARTIAL 4TH RAY, OPEN APPROACH (11/04/15) DETACHMENT AT LEFT FOOT, PARTIAL 5TH RAY, OPEN APPROACH (11/04/15) EXCISION OF LEFT FOOT SKIN, EXTERNAL APPROACH (07/04/15) EXCISION OF R FOOT SUBCU/FASCIA, OPEN APPROACH (07/04/15) EXERCISE TRMT MUSCULOSK LOW BACK/LE W ASSIST EQUIP (10/28/15) FLUOROSCOPY OF AORTA AND BILATERAL LOWER EXTREMITY ARTERIES (07/04/15) FLUOROSCOPY OF SUP VENA CAVA USING OTH CONTRAST, GUIDANCE (09/28/15) FLUOROSCOPY OF SUPERIOR VENA CAVA, GUIDANCE (11/04/15) GAIT TRAINING/AMBULAT TREATMENT USING ASSIST EQUIPMENT (10/28/15) GROOMING/PERSONAL HYGIENE TREATMENT USING ASSIST EQUIPMENT (10/28/15) INJECT/INFUSE NEC (07/01/15) INSERTION OF INFUSION DEV INTO SUP VENA CAVA, PERC APPROACH (11/04/15) INTRODUCE OTH ANTI-INFECT IN CENTRAL VEIN, PERC (11/04/15) INTRODUCE REGIONAL ANESTH IN PERIPH NRV, PLEXI, PERC (07/04/15) INTRODUCTION OF SERUM/TOX/VACCINE INTO MUSCLE, PERC APPROACH (09/28/15) OCCUPATIONAL THERAPY (05/20/15) PACKED CELL TRANSFUSION (05/13/15) PHYSICAL THERAPY NEC (05/20/15) PROCEDURE ON SINGLE VESSEL (03/25/15) REPLACE R FOOT SKIN W NONAUT SUB, FULL THICK, DOUBLE BACK OPERATOR (07/04/15) TOE AMPUTATION (03/25/15) TRANSFUSE NONAUT RED BLOOD CELLS IN PERIPH VEIN, PERC (09/28/15) Family History: States: Other Other Family History: nc - Social History Hx Tobacco Use: No Hx Alcohol Use: No Hx Substance Use: No - Immunization History Hx Tetanus Toxoid Vaccination: No Hx Influenza Vaccination: Yes (08/07/17) Hx Pneumococcal Vaccination: No (2011) Review Of Systems Constitutional: Positive for: Fever, Chills, Malaise Cardiovascular: Negative for: Chest Pain Respiratory: Positive for: Cough, Shortness of Breath. Negative for: Hemoptysis Gastrointestinal: Negative for: Vomiting, Abdominal Pain Neurological: Negative for: Weakness, Numbness Physical Exam - Physical Exam Appears: Well, Non-toxic, No Acute Distress Skin: Warm, Dry Eye(s): bilateral: PERRL Nose: No Epistaxis Oral Mucosa: Moist Cardiovascular: Rhythm Regular Respiratory: No Decreased Breath Sounds, No Accessory Muscle Use, No Rales, No Rhonchi, No Stridor, No Wheezing Gastrointestinal/Abdominal: Soft, No Tenderness Extremity: No Swelling Pulses: Left Radial: Normal, Right Radial: Normal Neurological/Psych: Oriented x3, Other (no focal deficits) ED Course And Treatment - Laboratory Results Result Diagrams: 10/25/17 17:26 10/25/17 17:26 O2 Sat by Pulse Oximetry: 93 Medical Decision Making Medical Decision Making: EKG: NSR 83bpm, left axis deviation, no acute ischemia. Disposition - Disposition Disposition Time: 10:14 Condition: STABLE - Clinical Impression Clinical Impression: Bronchitis, BRITTANEY (acute kidney injury)
[2017-10-22] MEDS ORDERED: Albuterol-Ipratrop 3 mg / 0.5 (3 ml) UD ONE (08:57)
[2017-10-22 09:38] LABS: BASO % 0.9 % (0.0-2.0); EOS # 0.1 K/uL (0.0-0.7); EOS % 2.4 % (0.0-4.0); HEMOGLOBIN 11.4 g/dL (11.0-16.0); LYMPH # 1.5 K/uL (1.0-4.3); LYMPH % 42.2 % (20.0-40.0); MEAN CELL VOLUME 89.7 fL (81.0-99.0); MEAN CORPUSCULAR HEMOGLOBIN 29.6 pg (27.0-31.0); MEAN PLATELET VOLUME 11.1 fL (7.2-11.7); MONO # 0.4 K/uL (0.0-0.8); NEUT # 1.5 K/uL (1.8-7.0); NEUT % 43.5 % (50.0-75.0); RBC 3.87 Mil/uL (3.80-5.20); RED CELL DISTRIBUTION WIDTH 14.2 % (11.5-14.5); WHITE BLOOD COUNT 3.6 K/uL (4.8-10.8)
[2017-10-22 10:06] LABS: ALB/GLOB RATIO 1.4 (1.0-2.1); ALBUMIN 3.6 g/dL (3.5-5.0)
[2017-10-22] MEDS ORDERED: Sodium Chloride 0.9% 1,000 ML IV ONE (10:09)
[2017-10-22] MEDS ORDERED: Azithromycin 500 MG in Sodium Chloride 0.9% 250 ML IVPB STA (10:10)
[2017-10-22] MEDS ORDERED: Sodium Chloride 0.9% 1,000 ML ONE (11:31)
--- NOTE | 2017-10-22 11:37 | RAD ---
HISTORY: cough sob COMPARISON: 08/12/2017 TECHNIQUE: Chest PA and lateral FINDINGS: LUNGS: Low lung volumes are appreciated with probable poor inspiratory effort. Minimal crowding is seen at the lung bases. No focal infiltrate is seen. PLEURA: No significant pleural effusion identified. No pneumothorax apparent. CARDIOVASCULAR: Normal. OSSEOUS STRUCTURES: No significant abnormalities. VISUALIZED UPPER ABDOMEN: Normal. OTHER FINDINGS: None. IMPRESSION: No focal infiltrate or CHF. Poor inspiratory effort.
[2017-10-22] MEDS: Pantoprazole 40 mg EC Tab PO SCH (17:38)
[2017-10-22] MEDS: (Novolog) Insulin Aspart, Recombinant 100 u/ml 10 ml vial SC SCH ×2 (17:39→22:07)
[2017-10-22] MEDS ORDERED: INSULIN DETEMIR 20 UNIT SC SCH (18:00)
[2017-10-22 22:52] LABS: SQUAMOUS EPITHIAL 1 /hpf (0-5); URINE BILIRUBIN NEGATIVE (NEGATIVE); URINE BLOOD NEGATIVE (NEGATIVE); URINE CLARITY Clear (Clear); URINE COLOR Colorless (YELLOW); URINE GLUCOSE (UA) 3+ mg/dL (Normal); URINE LEUKOCYTE ESTERASE NEG Leu/uL (Negative); URINE NITRATE NEGATIVE (NEGATIVE); URINE PROTEIN NEGATIVE (NEGATIVE); URINE UROBILINOGEN NORMAL mg/dL (0.2-1.0)
[2017-10-23] MEDS: Pantoprazole 40 mg EC Tab PO SCH (06:39)
[2017-10-23 08:44] LABS: MEAN CELL VOLUME 88.9 fL (81.0-99.0); MEAN CORPUSCULAR HEMOGLOBIN 29.4 pg (27.0-31.0); MEAN CORPUSCULAR HGB CONC 33.1 g/dL (33.0-37.0); MEAN PLATELET VOLUME 11.4 fL (7.2-11.7); RBC 3.73 Mil/uL (3.80-5.20); RED CELL DISTRIBUTION WIDTH 14.1 % (11.5-14.5); WHITE BLOOD COUNT 3.9 K/uL (4.8-10.8)
[2017-10-23] MEDS: (Novolog) Insulin Aspart, Recombinant 100 u/ml 10 ml vial SC SCH ×4 (08:55→21:09)
[2017-10-23 09:19] LABS: BLOOD UREA NITROGEN 17 mg/dL (7-17); CALCIUM 7.5 mg/dl (8.6-10.4); GFR AFRICAN-AMERICAN > 60; GFR NON-AFRICAN AMERICAN 57
[2017-10-23] MEDS ORDERED: LEFLUNOMIDE 20 MG PO SCH (10:00)
[2017-10-23] MEDS ORDERED: Albuterol 0.083% Inhal Sol (2.5 mg/3 mL) UD IH PRN (10:00)
[2017-10-23] MEDS: Azithromycin 500 MG in Sodium Chloride 0.9% 250 ML IVPB SCH (11:13)
[2017-10-23] MEDS ORDERED: Insulin Detemir 100 units/ml Vial (Levemir) SC STA (11:59)
[2017-10-23] MEDS ORDERED: Azithromycin 500 MG in Sodium Chloride 0.9% 250 ML IVPB SCH (17:00)
[2017-10-23 21:21] LABS: IRON 30 ug/dL (37-170)
[2017-10-23 21:32] LABS: TOTAL IRON BINDING CAPACITY 213 ug/dL (250-450)
[2017-10-23 21:34] LABS: % IRON SATURATION 14 (20-55)
[2017-10-23 22:27] LABS: FOLATE 11.7 ng/mL
--- NOTE | 2017-10-23 23:41 | PN ---
DATE: SUBJECTIVE: The patient is a 57-year-old female. Patient was seen and examined at the bedside, looking comfortable. As per patient, feeling much better. Still having little bit shortness of breath. No nausea, vomiting, diarrhea, hematuria, or hematochezia. No swelling of the legs. No chest pain. No palpitation. No headache or dizziness. PHYSICAL EXAMINATION: VITAL SIGNS: Temperature 97.8, pulse 81, blood pressure 135/75, respiratory rate 20. HEENT: Head is normocephalic and atraumatic. Eyes: PERRLA. Extraocular muscles intact. Conjunctivae clear. Nose patent. Mucous membranes moist. NECK: Supple. No carotid bruits, JVD, or thyromegaly. CHEST: Bilaterally symmetrical. HEART: S1 and S2 positive. LUNGS: Clear to auscultation. ABDOMEN: Soft. Bowel sounds present. No organomegaly. EXTREMITIES: No edema. No cyanosis. NEUROLOGIC: The patient is awake, alert. Moving all four extremities. No focal deficit. MEDICATIONS: Albuterol, Crestor, levothyroxine, Lyrica, Norvasc, insulin, and Protonix. LABORATORY DATA: White blood cells 3.9, hemoglobin 11.0, hematocrit 33.2, platelets 120. Sodium 129, potassium 4.5, BUN 17, creatinine 1.0, glucose 273, 334. ASSESSMENT AND PLAN: Ms. Jo Ann Mcguire is a 57-year-old female with leukopenia, anemia, hyponatremia, hypocalcemia, hyperglycemia, glucosuria, influenza type A and B is negative, has history of anxiety, anemia, arthritis, asthma, chronic obstructive pulmonary disease, depression, diabetes mellitus type 1 and 2 associated with diabetic neuropathy, gastritis, hypertension, hypercholesterolemia, hyperlipidemia, hypothyroidism, malignancy of the thyroid, rheumatoid arthritis, sleep apnea. Getting Crestor for hypercholesterolemia, levothyroxine for hypothyroidism, and Lyrica for peripheral neuropathy. Getting insulin for diabetes. Protonix for gastrointestinal prophylaxis. Getting antibiotics, feeling better, rule out bronchitis. Gastrointestinal and deep venous thrombosis prophylaxis. Repeat labs. We will follow up. Lena Diane MD [facility] # [id number]
[2017-10-24] MEDS ORDERED: guaiFENesin DM 100 mg-10 mg/5 ml UD PO ONE (05:45)
[2017-10-24] MEDS: Pantoprazole 40 mg EC Tab PO SCH (06:47)
[2017-10-24 07:28] LABS: HEMOGLOBIN 10.6 g/dL (11.0-16.0); MEAN CELL VOLUME 88.5 fL (81.0-99.0); MEAN CORPUSCULAR HEMOGLOBIN 28.5 pg (27.0-31.0); MEAN CORPUSCULAR HGB CONC 32.2 g/dL (33.0-37.0); MEAN PLATELET VOLUME 11.2 fL (7.2-11.7); RBC 3.71 Mil/uL (3.80-5.20); RED CELL DISTRIBUTION WIDTH 14.5 % (11.5-14.5); WHITE BLOOD COUNT 2.2 K/uL (4.8-10.8)
[2017-10-24 08:18] LABS: BLOOD UREA NITROGEN 18 mg/dL (7-17); CALCIUM 7.6 mg/dl (8.6-10.4); GFR AFRICAN-AMERICAN > 60; GFR NON-AFRICAN AMERICAN 57
[2017-10-24] MEDS: (Novolog) Insulin Aspart, Recombinant 100 u/ml 10 ml vial SC SCH ×4 (08:46→22:04)
--- NOTE | 2017-10-24 09:11 | HP ---
CHIEF COMPLAINT: Shortness of breath, coughing, congested, fever , HISTORY OF PRESENT ILLNESS: female with past medical history of anemia, anxiety, arthritis, asthma, COPD, depression, diabetes mellitus, gastritis, hypertension, hypothyroidism from thyroid malignancy, rheumatoid arthritis, sleep apnea, who came to [facility] with fever, progressive cough with shortness of breath, congested runny nose of 4 days. She has not taken any medications for her signs and symptoms at home. Patient was seen and examined in the ER. was sitting on the bedside also. No hematuria or hematochezia. No headache, no dizziness. No swelling of the leg. 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 FAMILY HISTORY: Father and mother, noncontributory. HABITS: No smoking. No drugs. No ethanol. ALLERGIES: PATIENT IS ALLERGIC TO LEVOFLOXACIN, HOME MEDICATIONS: Reviewed by me. REVIEW OF SYSTEMS: The patient was seen and examined at the bedside in the ER. was sitting on the bedside also. Still coughing, shortness of breath congested, feeling feverish. No nausea, vomiting, or diarrhea. No hematuria or hematochezia. No swelling of the leg. No chest pain or palpitations. PHYSICAL EXAMINATION: VITAL SIGNS: Temperature 98.8, pulse 80 , blood pressure 120/80 , respiratory rate 20. HEENT: Head: Normocephalic, atraumatic. Eyes: PERRLA. Extraocular muscles intact. Conjunctivae clear. Nose patent. Mucous membranes moist. NECK: Supple. No carotid bruits, JVD or thyromegaly. CHEST: Bilaterally symmetrical. HEART: S1, S2 positive. LUNGS: Clear to auscultation. ABDOMEN: Soft, bowel sounds present. No organomegaly. EXTREMITIES: No edema, no cyanosis. NEUROLOGIC: Patient is awake and alert. Moving all four extremities. No focal deficits. LABORATORY DATA: White blood cells , hemoglobin noted , hematocrit 34.7, platelets 117. Sodium 129, potassium 4.4, BUN noted , creatinine 1.3, glucose 259 and calcium 8.0. ASSESSMENT AND PLAN: -old lady with leukopenia, hyponatremia, renal insufficiency, hyperglycemia, hypocalcemia, seen by in the ER. Discussion done with The patient has bronchitis, history of anemia, anxiety, arthritis, asthma, chronic obstructive pulmonary disease, depression, diabetes mellitus type 1 and 2 associated with diabetic neuropathy, gastritis, hypertension, hypercholesterolemia, hypertriglyceridemia, hypothyroidism, rheumatoid arthritis, sleep apnea syndrome, coronary artery stenting. Started the patient is on antibiotics . Gastrointestinal and deep venous thrombosis prophylaxis. Repeat labs. We will follow. Lena Diane MD [facility]
[2017-10-24] MEDS ORDERED: guaiFENesin 100 mg/5 ml Syrup UD PO PRN (09:20)
[2017-10-24] MEDS: Azithromycin 500 MG in Sodium Chloride 0.9% 250 ML IVPB SCH (10:34)
[2017-10-24] MEDS: Calcium-Vit D 250 mg-125 Units Tab UD PO SCH (10:34)
--- NOTE | 2017-10-24 12:46 | CP.PCM.PN ---
<Shagufta Villela - Last Filed: 10/25/17 13:57> Subjective - Date & Time of Evaluation Date of Evaluation: 10/24/17 Time of Evaluation: 10:00 - Subjective Subjective: 57 yr female w/ history of anemia, anxiety, arthritis, asthma, COPD, depression, DM, gastritis, HTN, hypothyroidism from thyroid malignancy, rheumatoid arthritis, sleep apnea, diabetic nephropathy, and CAD. Pt seen at bedside. She is c/o increased wheezing. At home, she normally takes albuterol 3x/day. She also states that she has been having loose watery stools x2 today. Denies any fever, chills, ear pain, throat pain, headache, chest pain , or urinary changes. Objective - Vital Signs/Intake and Output Vital Signs (last 24 hours): Temp Pulse Resp BP Pulse Ox 98.3 F 73 20 130/78 95 10/24/17 07:00 10/24/17 07:00 10/24/17 07:00 10/24/17 07:00 10/24/17 07:00 - Medications Medications: Current Medications Albuterol Sulfate (Albuterol 0.083% Inhal Carole (2.5 Mg/3 Ml) Ud) 2.5 mg IH RQ6 [facility] Amlodipine Besylate (Norvasc) 5 mg PO DAILY [facility] Last Admin: 10/24/17 10:34 Dose: 5 mg Calcium/Vitamin D (Oscal-D 250 Mg-125 Units Tab) 1 tab PO DAILY [facility] Last Admin: 10/24/17 10:34 Dose: 1 tab Guaifenesin (Robitussin) 100 mg PO BID PRN PRN Reason: Cough Home Med (Leflunomide [Leflunomide]) 20 mg PO DAILY [facility] Azithromycin 500 mg/ Sodium (Chloride) 250 mls @ 250 mls/hr IVPB Q24H [facility] Last Admin: 10/24/17 10:34 Dose: 250 mls/hr Insulin Aspart (Novolog) 0 unit SC ACHS [facility] PRN Reason: Protocol Last Admin: 10/24/17 08:46 Dose: 3 unit Levothyroxine Sodium (Levothroid) 137 mcg PO DAILY@0630 [facility] Last Admin: 10/24/17 06:47 Dose: 137 mcg Pantoprazole Sodium (Protonix Ec Tab) 40 mg PO ACB [facility] Last Admin: 10/24/17 06:47 Dose: 40 mg Pneumococcal Polyvalent Vaccine (Pneumovax 23 Vaccine) 0.5 ml IM .ONCE ONE Stop: 10/25/17 10:01 Pregabalin (Lyrica) 100 mg PO TID [facility] Last Admin: 10/24/17 10:34 Dose: 100 mg Rosuvastatin Calcium (Crestor) 5 mg PO HS [facility] Last Admin: 10/23/17 22:31 Dose: 5 mg - Labs Labs: 10/24/17 07:15 10/24/17 07:15 - Constitutional Appears: Chronically Ill - Head Exam Head Exam: ATRAUMATIC, NORMAL INSPECTION, NORMOCEPHALIC - Eye Exam Eye Exam: EOMI, Normal appearance, PERRL - ENT Exam ENT Exam: Mucous Membranes Moist, Normal Exam - Neck Exam Neck Exam: Full ROM, Normal Inspection. absent: Lymphadenopathy - Respiratory Exam Respiratory Exam: Wheezes, NORMAL BREATHING PATTERN - Cardiovascular Exam Cardiovascular Exam: REGULAR RHYTHM, +S1, +S2. absent: Murmur - GI/Abdominal Exam GI & Abdominal Exam: Soft, Normal Bowel Sounds. absent: Tenderness - Extremities Exam Extremities Exam: Full ROM Additional comments: B/L ME amputation incision healing - Back Exam Back Exam: NORMAL INSPECTION - Neurological Exam Neurological Exam: Alert, Awake, CN II-XII Intact, Normal Gait, Oriented x3 - Psychiatric Exam Psychiatric exam: Normal Affect, Normal Mood - Skin Skin Exam: Dry, Intact, Normal Color, Warm Assessment and Plan (1) Diarrhea Status: Acute (2) Bronchospasm Status: Acute (3) Neutropenia Status: Acute (4) Thrombocytopenia Status: Acute (5) Acute renal failure (ARF) Status: Acute (6) Influenza-like illness Status: Acute (7) Anemia Status: Chronic (8) Type 2 diabetes mellitus with hyperglycemia Status: Chronic - Assessment and Plan (Free Text) Plan: Changed duonebs q6h scheduled. PO zithro & IV solumendryl onboard. Ordered stool culture & sputum culture. Consults: Endocrine - Dr. Momin Maltster/Oncologist - Dr. Ruth ID - Dr. Santo - tamiflu for 5 days, droplet precautions, sputum gram strain/ culture, sed rate, c reactive protein Pedigree Tracer - Dr. Arrieta Reviewed: CXR = WNL, poor inspiratory effort ECG = ABNORMAL - NSR, L axis deviation, L ventricular hypertrophy <Lena Diane - Last Filed: 10/25/17 15:43> Objective - Vital Signs/Intake and Output Vital Signs (last 24 hours): Temp Pulse Resp BP Pulse Ox 97.7 F 89 20 126/77 95 10/25/17 08:35 10/25/17 08:35 10/25/17 08:35 10/25/17 08:35 10/25/17 08:35 - Medications Medications: Current Medications Albuterol Sulfate (Albuterol 0.083% Inhal Carole (2.5 Mg/3 Ml) Ud) 2.5 mg IH RQ6 [facility] Last Admin: 10/25/17 13:00 Dose: 2.5 mg Amlodipine Besylate (Norvasc) 5 mg PO DAILY [facility] Last Admin: 10/25/17 10:24 Dose: 5 mg Azithromycin (Zithromax) 500 mg PO DAILY [facility] Last Admin: 10/25/17 10:24 Dose: 500 mg Calcium/Vitamin D (Oscal-D 250 Mg-125 Units Tab) 1 tab PO DAILY [facility] Last Admin: 10/25/17 10:28 Dose: Not Given Guaifenesin (Robitussin) 100 mg PO BID PRN PRN Reason: Cough Insulin Aspart (Novolog) 0 unit SC ACHS [facility] PRN Reason: Protocol Last Admin: 10/25/17 12:58 Dose: 12 unit Insulin Detemir (Levemir) 20 unit SC Q12H [facility] Last Admin: 10/25/17 10:25 Dose: 20 unit Levothyroxine Sodium (Levothroid) 137 mcg PO DAILY@0630 [facility] Last Admin: 10/25/17 06:34 Dose: 137 mcg Methylprednisolone (Solu-Medrol) 40 mg IVP Q12H [facility] Last Admin: 10/25/17 10:24 Dose: 40 mg Oseltamivir Phosphate (Tamiflu Cap) 75 mg PO BID [facility] Stop: 10/29/17 13:45 Last Admin: 10/25/17 10:24 Dose: 75 mg Pantoprazole Sodium (Protonix Ec Tab) 40 mg PO ACB [facility] Last Admin: 10/25/17 06:34 Dose: 40 mg Pneumococcal Polyvalent Vaccine (Pneumovax 23 Vaccine) 0.5 ml IM .ONCE ONE Stop: 10/26/17 10:01 Pregabalin (Lyrica) 100 mg PO TID [facility] Last Admin: 10/25/17 13:45 Dose: 100 mg Rosuvastatin Calcium (Crestor) 5 mg PO HS [facility] Last Admin: 10/24/17 22:04 Dose: 5 mg - Labs Labs: 10/24/17 07:15 10/24/17 07:15 Assessment and Plan - Assessment and Plan (Free Text) Plan: 57 yr female w/ history of anemia, anxiety, arthritis, asthma, COPD, depression, DM, gastritis, HTN, hypothyroidism from thyroid malignancy, rheumatoid arthritis, sleep apnea, diabetic nephropathy, and CAD. Pt seen at bedside. She is c/o increased wheezing. At home, she normally takes albuterol 3x/day. She also states that she has been having loose watery stools x2 today. Denies any fever, chills, ear pain, throat pain, headache, chest pain , or urinary changes. pt is seen and examined at bed side , looking comfotable , agreed all above , cont. same treatment , will f/u
[2017-10-24] MEDS: Albuterol 0.083% Inhal Sol (2.5 mg/3 mL) UD IH SCH ×2 (13:26→19:02)
--- NOTE | 2017-10-24 13:47 | CP.PCM.CON ---
History of Present Illness - History of Present Illness History of Present Illness: INFECTIOUS DISEASE CONSULTATION; PATIENT SEEN, CHART REVIEWED CASE DISCUSSED WITH THE STAFF CONSULTATION DICTATED; DICTATION NUMBER; [id number]. SEE ORDER SHEET. Past Patient History - Infectious Disease Hx of Infectious Diseases: None - Past Medical History & Family History Past Medical History?: Yes - Past Social History Smoking Status: Never Smoked - CARDIAC Hx Hypercholesterolemia: Yes Hx Hypertension: Yes - PULMONARY Hx Asthma: Yes Hx Chronic Obstructive Pulmonary Disease (COPD): Yes Hx Sleep Apnea: Yes - NEUROLOGICAL Hx Neurological Disorder: Yes (Diabetic neuropathy) - HEENT Hx HEENT Problems: No - RENAL Hx Chronic Kidney Disease: No - ENDOCRINE/METABOLIC Hx Hypothyroidism: Yes - HEMATOLOGICAL/ONCOLOGICAL Hx Anemia: Yes - INTEGUMENTARY Hx Dermatological Problems: Yes Other/Comment: Hx BLE TMA incisions 2 neuromas in healing - MUSCULOSKELETAL/RHEUMATOLOGICAL Hx Arthritis: Yes Hx Falls: No Hx Rheumatoid Arthritis: Yes - GASTROINTESTINAL Hx Gastritis: Yes - GENITOURINARY/GYNECOLOGICAL Hx Genitourinary Disorders: No - PSYCHIATRIC Hx Anxiety: Yes Hx Depression: Yes Hx Substance Use: No - SURGICAL HISTORY Hx Coronary Stent: Yes - ANESTHESIA Hx Anesthesia: Yes Hx Anesthesia Reactions: No Hx Malignant Hyperthermia: No Meds Allergies/Adverse Reactions: Allergies Allergy/AdvReac Type Severity Reaction Status Date / Time levofloxacin Allergy Intermediate RASH Verified 09/14/17 04:28 Penicillins Allergy Intermediate RASH Verified 09/14/17 04:28 Band-Aid Allergy Mild RASH Verified 09/14/17 04:28 hydromorphone AdvReac DELIRIUM Verified 09/14/17 04:28 fragrance Allergy Intermediate RASH Uncoded 09/14/17 04:28 - Medications Medications: Current Medications Albuterol Sulfate (Albuterol 0.083% Inhal Carole (2.5 Mg/3 Ml) Ud) 2.5 mg IH RQ6 [facility] Last Admin: 10/24/17 13:26 Dose: 2.5 mg Amlodipine Besylate (Norvasc) 5 mg PO DAILY [facility] Last Admin: 10/24/17 10:34 Dose: 5 mg Calcium/Vitamin D (Oscal-D 250 Mg-125 Units Tab) 1 tab PO DAILY [facility] Last Admin: 10/24/17 10:34 Dose: 1 tab Guaifenesin (Robitussin) 100 mg PO BID PRN PRN Reason: Cough Home Med (Leflunomide [Leflunomide]) 20 mg PO DAILY [facility] Azithromycin 500 mg/ Sodium (Chloride) 250 mls @ 250 mls/hr IVPB Q24H [facility] Last Admin: 10/24/17 10:34 Dose: 250 mls/hr Insulin Aspart (Novolog) 0 unit SC ACHS [facility] PRN Reason: Protocol Last Admin: 10/24/17 12:49 Dose: 5 unit Levothyroxine Sodium (Levothroid) 137 mcg PO DAILY@0630 [facility] Last Admin: 10/24/17 06:47 Dose: 137 mcg Oseltamivir Phosphate (Tamiflu Cap) 75 mg PO BID [facility] Stop: 10/29/17 13:45 Pantoprazole Sodium (Protonix Ec Tab) 40 mg PO ACB [facility] Last Admin: 10/24/17 06:47 Dose: 40 mg Pneumococcal Polyvalent Vaccine (Pneumovax 23 Vaccine) 0.5 ml IM .ONCE ONE Stop: 10/25/17 10:01 Pregabalin (Lyrica) 100 mg PO TID [facility] Last Admin: 10/24/17 10:34 Dose: 100 mg Rosuvastatin Calcium (Crestor) 5 mg PO HS [facility] Last Admin: 10/23/17 22:31 Dose: 5 mg Results - Vital Signs Recent Vital Signs: Last Vital Signs Temp 98.3 F 10/24/17 07:00 Pulse 73 10/24/17 07:00 Resp 20 10/24/17 07:00 BP 130/78 10/24/17 07:00 Pulse Ox 95 10/24/17 07:00 - Labs Result Diagrams: 10/24/17 07:15 10/24/17 07:15 Labs: Laboratory Results - last 24 hr 10/23/17 10/23/17 10/23/17 16:52 21:00 21:00 WBC RBC Hgb Hct MCV MCH MCHC RDW Plt Count MPV Sodium Potassium Chloride Carbon Dioxide Anion Gap BUN Creatinine Est GFR ( Amer) Est GFR (Non-Af Amer) POC Glucose (mg/dL) 273 H Random Glucose Hemoglobin A1c Calcium Iron 30 L TIBC 213 L % Saturation 14 L Triglycerides 450 H Cholesterol 152 LDL Cholesterol Direct 52 HDL Cholesterol 30 Vitamin B12 859 Folate 11.7 10/23/17 10/23/17 10/24/17 21:00 21:01 06:25 WBC RBC Hgb Hct MCV MCH MCHC RDW Plt Count MPV Sodium Potassium Chloride Carbon Dioxide Anion Gap BUN Creatinine Est GFR ( Amer) Est GFR (Non-Af Amer) POC Glucose (mg/dL) 259 H 255 H Random Glucose Hemoglobin A1c 12.4 H D Calcium Iron TIBC % Saturation Triglycerides Cholesterol LDL Cholesterol Direct HDL Cholesterol Vitamin B12 Folate 10/24/17 10/24/17 10/24/17 07:15 07:15 11:29 WBC 2.2 L RBC 3.71 L Hgb 10.6 L Hct 32.8 L MCV 88.5 MCH 28.5 MCHC 32.2 L RDW 14.5 Plt Count 121 L MPV 11.2 Sodium 128 L Potassium 4.1 Chloride 102 Carbon Dioxide 21 L Anion Gap 9 L BUN 18 H Creatinine 1.0 Est GFR ( Amer) > 60 Est GFR (Non-Af Amer) 57 POC Glucose (mg/dL) 372 H Random Glucose 271 H Hemoglobin A1c Calcium 7.6 L Iron TIBC % Saturation Triglycerides Cholesterol LDL Cholesterol Direct HDL Cholesterol Vitamin B12 Folate
[2017-10-24] MEDS ORDERED: Albuterol 0.083% Inhal Sol (2.5 mg/3 mL) UD INH STA (21:17)
[2017-10-24] MEDS: Insulin Detemir 100 units/ml Vial (Levemir) SC SCH (22:05)
[2017-10-24 22:27] LABS: MYCOPLASMA PNEUMONIAE IGM NEGATIVE (NEGATIVE)
[2017-10-24] MEDS: MethylPREDNISolone 40 mg Vial IVP SCH (23:09)
[2017-10-25] MEDS: Albuterol 0.083% Inhal Sol (2.5 mg/3 mL) UD IH SCH ×4 (01:35→20:58)
[2017-10-25] MEDS: Pantoprazole 40 mg EC Tab PO SCH (06:34)
[2017-10-25] MEDS: (Novolog) Insulin Aspart, Recombinant 100 u/ml 10 ml vial SC SCH ×6 (06:42→17:15)
[2017-10-25 08:40] LABS: COLD AGGLUTININ NEGATIVE (NEGATIVE)
--- NOTE | 2017-10-25 09:23 | CON ---
DATE: INFECTIOUS DISEASE CONSULTATION REQUESTED BY: Dr. Diane. DICTATION DONE BY: Dr. Zhen Santo. REASON FOR CONSULTATION: Bronchitis, acute kidney injury and pancytopenia. HISTORY OF PRESENT ILLNESS: The patient is a 57-year-old female with multiple medical problems including bronchial asthma, COPD, arthritis, diabetes type 1 and 2 associated with diabetic neuropathy, gastritis, hypertension, hypothyroidism, thyroid malignancy, rheumatoid arthritis, and sleep apnea who was admitted on 10/22/2017 with cough productive of yellowish sputum and also with subjective fevers, shortness of breath and congestion. The patient has also running nose for the past 4 days prior to admission. She had not taken anything for her symptoms at home. On admission, the patient was found also to have increasing creatinine of 1.3 and BUN of 23 with low WBC count of 3.9. The patient had multiple allergies, was placed on IV Zithromax 500 mg once daily by the private MD. Chest x-ray on admission was unremarkable for any focal infiltrates. Infectious Disease consultation requested by PMD for the above complaints, especially bronchitis with pancytopenia. The patient seen today, on 10/24/2017, and continues to have leukopenia with WBC count of 2.2 and thrombocytopenia with platelet count of 121 and hemoglobin of 10.6. Blood sugars are still elevated more than 300 as noted on the chart with creatinine presently 1.0 and BUN of 18. The patient also complains of generalized body aches and not feeling well with malaise. The patient presenting on IV Zithromax 500 mg once a day. PAST MEDICAL HISTORY: As above, anemia, COPD, depression, diabetes type 1 and 2 with associated diabetic neuropathy, gastritis, hypertension, hypercholesterolemia, arthritis, anxiety, hyperlipidemia, hypothyroidism, thyroid malignancy, rheumatoid arthritis and sleep apnea. PAST SURGICAL HISTORY: She has history of coronary stents, also had multiple surgeries on her foot with amputations and angioplasties of coronary vessels done on 03/25/2016. FAMILY HISTORY: Unremarkable. SOCIAL HISTORY: The patient denies any smoking, drinking, or alcohol abuse. IMMUNIZATIONS: She is up to date on influenza vaccination received on 08/07/2017. History of pneumococcal vaccination, last vaccination was taken in 2011. Tetanus toxoid vaccination, denies any recent tetanus toxoid vaccination. REVIEW OF SYSTEMS: CONSTITUTIONAL: Does complain of fevers, chills, and malaise. CARDIOVASCULAR: Denies any chest pain or shortness of breath at present. RESPIRATORY: Complains of cough with productive sputum. Denies any hemoptysis or hematemesis; also on admission, she complains of shortness of breath. GASTROINTESTINAL: Denies any nausea, vomiting, or diarrhea. NEUROLOGICAL: Negative for headaches, weakness, or numbness. PHYSICAL EXAMINATION: GENERAL: The patient is awake, alert presently. VITAL SIGNS: As noted. On admission, afebrile, 98.6, respirations 22, pulse of 91, blood pressure 175/94, pulse ox is 93% on room air. HEENT: Pupils equal and reactive to light and accommodation. Extraocular movements full. Fundus negative. Sclerae nonicteric. Conjunctivae pale. JVP not elevated. NECK: Appears to be supple. LUNGS: Some diminished breath sounds, but no accessory muscles seen moving, no wheezing. CARDIOVASCULAR: Regular rhythm. No murmur or gallop. GASTROINTESTINAL: Abdomen soft, nontender. No organomegaly appreciated. EXTREMITIES: No cyanosis, clubbing or edema. CENTRAL NERVOUS SYSTEM: Oriented x3. No focal deficits. Moves all extremities. Reflexes are equal and symmetrical. LABORATORY DATA: WBC 2.2, hemoglobin 10.6, 32.8 hematocrit, platelets 121,000. Creatinine presently 1.0, BUN of 18 improved with hydration. Blood sugar still 334, random sugar. LFTs are normal. Chest x-ray shows no acute infiltrates. IMPRESSION: 1. Allergy. Flu-like syndrome, viral syndrome, rule out influenza. 2. Acute bronchitis with yellowish phlegm, rule out bronchopulmonary infection. 3. Pancytopenia. 4. History of bronchial asthma. 5. Diabetes mellitus type 1 and 2. 6. Peripheral neuropathy. 7. History of rheumatoid arthritis. 8. Hypothyroidism. PLAN: Hand cultures. Presently, cultures for 24 hours are negative. Sputum gram stain and culture pending, on IV Zithromax 500 mg once a day daily as THE PATIENT HAS MULTIPLE ALLERGIES TO LEVOFLOXACIN, PENICILLIN, BAND-AID, HYDROMORPHONE AND . We will add Tamiflu 75 mg p.o. b.i.d. for 5 days, started on 10/24/2017. Droplet precautions for now, sputum gram stain and culture to be collected, sed rate and C reactive proteins pending. We will follow along with you. Blood works ordered for tomorrow. Thank you very much for allowing me to participate in the care of your patient. Zhen Santo MD
[2017-10-25] MEDS ORDERED: Pneumococcal 23-Valent Vaccine IM ONE (10:00)
[2017-10-25 10:17] LABS: LEGIONELLA AG URINE NEGATIVE (NEGATIVE)
[2017-10-25] MEDS: MethylPREDNISolone 40 mg Vial IVP SCH ×2 (10:24→22:00)
[2017-10-25] MEDS: Insulin Detemir 100 units/ml Vial (Levemir) SC SCH ×2 (10:25→21:58)
[2017-10-25] MEDS: Calcium-Vit D 250 mg-125 Units Tab UD PO SCH (10:28)
--- NOTE | 2017-10-25 16:46 | CP.PCM.CON ---
History of Present Illness - History of Present Illness History of Present Illness: Patient is a 57 year old female with a history of DM, asthma, anxiety, HTN, gastritis, HLD, hypothyroidism, rheumatoid arthritis who was admitted on 10/22/17 for complaints of 4 day history of productive cough, subjective fever, shortness of breath, nasal congestion. She states she had her flu vaccine this year, unsure if she has had the pneumonia vaccine. Initial CXR on admission was negative for pneumonia. Today, she states her shortness of breath and tightness in her chest is much improved after she received Solumedrol yesterday. States her dyspnea is slight, stating she does not need oxygen and has occasional wheezing. She reports her cough is no longer constant, and is productive of white nonbloody sputum. She denies chest pain, fever, dizziness, headache. She reports she typically uses her home nebulizer machine for her asthma, however has run out of her medication. Her wrapping machine operator, Dr. Willam Colvin recently moved his office to [place] and she has not been able to follow up with him. PMH: anemia, anxiety, asthma, depression, rheumatoid arthritis, DM, gastritis, HTN, HLD, hypothyroidism, sleep apnea, thyroid malignancy PSH: coronary stents, foot surgeries Social hx: no history of smoking. denies EtOH or recreational drug use. Family hx: Mother - , was a smoker, hx of multiple strokes. Dad at age 91. Home Meds: Albuterol 3cc INH, Lipitor 10mg PO HS, Keflex 250mg BID, Bentyl 20mg PO Q6, Levemir 20unit SC TID, ATrovent 2.5ml INH daily PRN, Leflunomide 20mg PO , Levothyroxine 137mcg, Meclizine 25mg PO TID, Protonix 40mg PO, Lyrica 100mg TID, Sodium bicarbonate 650mg PO Q6, Norvasc 5mg PO daily, Flagyl 250mg PO Q8, Ultracet 37.5/325 1 tab PO TID, Calcium + Vit D3 ER 1 each PO daily Allergies: Levofloxacin, PCNs, Hydromorphone, fragrance - rash Physical examination: Respiratory: Able to speak in full sentences. (+) mild diffuse expiratory wheezing, no rales or rhonchi. Assessment and plan 57 year old female with a history of DM, asthma, anxiety, HTN, gastritis, HLD, hypothyroidism, rheumatoid arthritis who was admitted on 10/22/17 for complaints of 4 day history of productive cough, subjective fever, shortness of breath, nasal congestion. Pulmonology consulted for evaluation of shortness of breath, rule out bronchitis. Asthma exacerbation Afebrile, not tachypneic. O2 sat 95% Negative for influenza A/B, HIV, Mycoplasma pneumonia, Legionella Blood cultures pending. Sputum culture pending. Glucose elevated in 400s, likely due to steroids and hx of DM. Continue to monitor blood glucose level. Continue current meds: Albuterol 2.5mg Q6 Azithromycin 500mg PO daily Robitussin 100mg BID PRN Solumedrol 40mg IVP Q12 Tamiflu 75mg BID Past Patient History - Infectious Disease Hx of Infectious Diseases: None - Past Medical History & Family History Past Medical History?: Yes - Past Social History Smoking Status: Never Smoked - CARDIAC Hx Hypercholesterolemia: Yes Hx Hypertension: Yes - PULMONARY Hx Asthma: Yes Hx Chronic Obstructive Pulmonary Disease (COPD): Yes Hx Sleep Apnea: Yes - NEUROLOGICAL Hx Neurological Disorder: Yes (Diabetic neuropathy) - HEENT Hx HEENT Problems: No - RENAL Hx Chronic Kidney Disease: No - ENDOCRINE/METABOLIC Hx Hypothyroidism: Yes - HEMATOLOGICAL/ONCOLOGICAL Hx Anemia: Yes - INTEGUMENTARY Hx Dermatological Problems: Yes Other/Comment: Hx BLE TMA incisions 2 neuromas in healing - MUSCULOSKELETAL/RHEUMATOLOGICAL Hx Arthritis: Yes Hx Falls: No Hx Rheumatoid Arthritis: Yes - GASTROINTESTINAL Hx Gastritis: Yes - GENITOURINARY/GYNECOLOGICAL Hx Genitourinary Disorders: No - PSYCHIATRIC Hx Anxiety: Yes Hx Depression: Yes Hx Substance Use: No - SURGICAL HISTORY Hx Coronary Stent: Yes - ANESTHESIA Hx Anesthesia: Yes Hx Anesthesia Reactions: No Hx Malignant Hyperthermia: No Meds Home Medications: Home Medication List Medication Instructions Recorded Confirmed Type Azithromycin [Zithromax] 500 mg PO DAILY 5 Days tab 10/25/17 Rx Oseltamivir [Tamiflu Cap] 75 mg PO BID 4 Days cap 10/25/17 Rx guaiFENesin/Dextromethorphan 5 ml PO ONCE 3 Days udc 10/25/17 Rx [Robitussin DM] Allergies/Adverse Reactions: Allergies Allergy/AdvReac Type Severity Reaction Status Date / Time levofloxacin Allergy Intermediate RASH Verified 09/14/17 04:28 Penicillins Allergy Intermediate RASH Verified 09/14/17 04:28 Band-Aid Allergy Mild RASH Verified 09/14/17 04:28 hydromorphone AdvReac DELIRIUM Verified 09/14/17 04:28 fragrance Allergy Intermediate RASH Uncoded 09/14/17 04:28 - Medications Medications: Current Medications Albuterol Sulfate (Albuterol 0.083% Inhal Carole (2.5 Mg/3 Ml) Ud) 2.5 mg IH RQ6 [facility] Last Admin: 10/25/17 13:00 Dose: 2.5 mg Amlodipine Besylate (Norvasc) 5 mg PO DAILY [facility] Last Admin: 10/25/17 10:24 Dose: 5 mg Azithromycin (Zithromax) 500 mg PO DAILY [facility] Last Admin: 10/25/17 10:24 Dose: 500 mg Calcium/Vitamin D (Oscal-D 250 Mg-125 Units Tab) 1 tab PO DAILY [facility] Last Admin: 10/25/17 10:28 Dose: Not Given Guaifenesin (Robitussin) 100 mg PO BID PRN PRN Reason: Cough Insulin Aspart (Novolog) [address] [facility] PRN Reason: Protocol Last Admin: 10/25/17 12:58 Dose: 12 unit Insulin Detemir (Levemir) 20 unit SC Q12H [facility] Last Admin: 10/25/17 10:25 Dose: 20 unit Levothyroxine Sodium (Levothroid) 137 mcg PO DAILY@0630 [facility] Last Admin: 10/25/17 06:34 Dose: 137 mcg Methylprednisolone (Solu-Medrol) 40 mg IVP Q12H [facility] Last Admin: 10/25/17 10:24 Dose: 40 mg Oseltamivir Phosphate (Tamiflu Cap) 75 mg PO BID [facility] Stop: 10/29/17 13:45 Last Admin: 10/25/17 10:24 Dose: 75 mg Pantoprazole Sodium (Protonix Ec Tab) 40 mg PO ACB [facility] Last Admin: 10/25/17 06:34 Dose: 40 mg Pneumococcal Polyvalent Vaccine (Pneumovax 23 Vaccine) 0.5 ml IM .ONCE ONE Stop: 10/26/17 10:01 Pregabalin (Lyrica) 100 mg PO TID [facility] Last Admin: 10/25/17 13:45 Dose: 100 mg Rosuvastatin Calcium (Crestor) 5 mg PO HS [facility] Last Admin: 10/24/17 22:04 Dose: 5 mg Results - Vital Signs Recent Vital Signs: Last Vital Signs Temp 98.1 F 10/25/17 16:29 Pulse 90 10/25/17 16:29 Resp 20 10/25/17 16:29 BP 150/89 10/25/17 16:29 Pulse Ox 96 10/25/17 16:29 - Labs Result Diagrams: 10/24/17 07:15 10/24/17 07:15 Labs: Laboratory Results - last 24 hr 10/24/17 10/24/17 10/25/17 14:53 21:08 01:52 POC Glucose (mg/dL) 408 H* 392 H Cold Agglutinins Negative Ur L.pneumophila Ag Negative Mycoplasma pneumon IgM Negative 10/25/17 10/25/17 10/25/17 06:38 08:09 09:11 POC Glucose (mg/dL) 485 H* 428 H* 442 H* Cold Agglutinins Ur L.pneumophila Ag Mycoplasma pneumon IgM 10/25/17 11:33 POC Glucose (mg/dL) 493 H* Cold Agglutinins Ur L.pneumophila Ag Mycoplasma pneumon IgM
[2017-10-25 17:33] LABS: BASO % 0.3 % (0.0-2.0); EOS % 0.1 % (0.0-4.0); HEMOGLOBIN 10.3 g/dL (11.0-16.0); LYMPH # 0.4 K/uL (1.0-4.3); LYMPH % 8.3 % (20.0-40.0); MEAN CELL VOLUME 88.5 fL (81.0-99.0); MEAN CORPUSCULAR HEMOGLOBIN 28.6 pg (27.0-31.0); MEAN CORPUSCULAR HGB CONC 32.3 g/dL (33.0-37.0); MEAN PLATELET VOLUME 11.5 fL (7.2-11.7); MONO # 0.1 K/uL (0.0-0.8); MONO % 1.5 % (0.0-10.0); NEUT # 4.3 K/uL (1.8-7.0); NEUT % 89.8 % (50.0-75.0); PLATELET COUNT 124 K/uL (130-400); RBC 3.61 Mil/uL (3.80-5.20); RED CELL DISTRIBUTION WIDTH 14.3 % (11.5-14.5); WHITE BLOOD COUNT 4.8 K/uL (4.8-10.8)
[2017-10-25 17:47] LABS: ALB/GLOB RATIO 1.2 (1.0-2.1); ALBUMIN 3.8 g/dL (3.5-5.0); CALCIUM 7.5 mg/dl (8.6-10.4)
--- NOTE | 2017-10-25 18:04 | CP.PCM.CON ---
History of Present Illness - History of Present Illness History of Present Illness: 57 year old female with a history of COPD, HTN, DM, HL, rheumatoid arthritis, admitted with cough, currently being treated for bronchitis with pancytopenia. She note she was told she has low blood counts in the past which were mild. She has not required a recent blood transfusion. She does take leflunomide for her rheumatoid arthritis. Past medical history: COPD, HTN, DM, HL, rheumatoid arthritis Past surgical history: B/L transmetatarsal amputation Family history: Denies hematologic and oncologic problems Social history: Denies tobacco, alcohol, and illicit drug use. Allergies: Several, see list Review of systems: All remaining review of systems including HEENT, cardiovascular, respiratory, gastrointestinal, genitourinary, musculoskeletal, dermatologic, neurologic, and psychiatric are negative unless mentioned in the HPI. Past Patient History - Infectious Disease Hx of Infectious Diseases: None - Past Medical History & Family History Past Medical History?: Yes - Past Social History Smoking Status: Never Smoked - CARDIAC Hx Hypercholesterolemia: Yes Hx Hypertension: Yes - PULMONARY Hx Asthma: Yes Hx Chronic Obstructive Pulmonary Disease (COPD): Yes Hx Sleep Apnea: Yes - NEUROLOGICAL Hx Neurological Disorder: Yes (Diabetic neuropathy) - HEENT Hx HEENT Problems: No - RENAL Hx Chronic Kidney Disease: No - ENDOCRINE/METABOLIC Hx Hypothyroidism: Yes - HEMATOLOGICAL/ONCOLOGICAL Hx Anemia: Yes - INTEGUMENTARY Hx Dermatological Problems: Yes Other/Comment: Hx BLE TMA incisions 2 neuromas in healing - MUSCULOSKELETAL/RHEUMATOLOGICAL Hx Arthritis: Yes Hx Falls: No Hx Rheumatoid Arthritis: Yes - GASTROINTESTINAL Hx Gastritis: Yes - GENITOURINARY/GYNECOLOGICAL Hx Genitourinary Disorders: No - PSYCHIATRIC Hx Anxiety: Yes Hx Depression: Yes Hx Substance Use: No - SURGICAL HISTORY Hx Coronary Stent: Yes - ANESTHESIA Hx Anesthesia: Yes Hx Anesthesia Reactions: No Hx Malignant Hyperthermia: No Meds Home Medications: Home Medication List Medication Instructions Recorded Confirmed Type Azithromycin [Zithromax] 500 mg PO DAILY 5 Days tab 10/25/17 Rx Oseltamivir [Tamiflu Cap] 75 mg PO BID 4 Days cap 10/25/17 Rx guaiFENesin/Dextromethorphan 5 ml PO ONCE 3 Days udc 10/25/17 Rx [Robitussin DM] Allergies/Adverse Reactions: Allergies Allergy/AdvReac Type Severity Reaction Status Date / Time levofloxacin Allergy Intermediate RASH Verified 09/14/17 04:28 Penicillins Allergy Intermediate RASH Verified 09/14/17 04:28 Band-Aid Allergy Mild RASH Verified 09/14/17 04:28 hydromorphone AdvReac DELIRIUM Verified 09/14/17 04:28 fragrance Allergy Intermediate RASH Uncoded 09/14/17 04:28 - Medications Medications: Current Medications Albuterol Sulfate (Albuterol 0.083% Inhal Carole (2.5 Mg/3 Ml) Ud) 2.5 mg IH RQ6 [facility] Last Admin: 10/25/17 13:00 Dose: 2.5 mg Amlodipine Besylate (Norvasc) 5 mg PO DAILY [facility] Last Admin: 10/25/17 10:24 Dose: 5 mg Azithromycin (Zithromax) 500 mg PO DAILY [facility] Last Admin: 10/25/17 10:24 Dose: 500 mg Calcium/Vitamin D (Oscal-D 250 Mg-125 Units Tab) 1 tab PO DAILY [facility] Last Admin: 10/25/17 10:28 Dose: Not Given Guaifenesin (Robitussin) 100 mg PO BID PRN PRN Reason: Cough Insulin Aspart (Novolog) 0 unit SC [facility] PRN Reason: Protocol Last Admin: 10/25/17 17:15 Dose: 12 unit Insulin Detemir (Levemir) 20 unit SC Q12H [facility] Last Admin: 10/25/17 10:25 Dose: 20 unit Levothyroxine Sodium (Levothroid) 137 mcg PO DAILY@0630 [facility] Last Admin: 10/25/17 06:34 Dose: 137 mcg Methylprednisolone (Solu-Medrol) 40 mg IVP Q12H [facility] Last Admin: 10/25/17 10:24 Dose: 40 mg Oseltamivir Phosphate (Tamiflu Cap) 75 mg PO BID [facility] Stop: 10/29/17 13:45 Last Admin: 10/25/17 17:15 Dose: 75 mg Pantoprazole Sodium (Protonix Ec Tab) 40 mg PO ACB [facility] Last Admin: 10/25/17 06:34 Dose: 40 mg Pneumococcal Polyvalent Vaccine (Pneumovax 23 Vaccine) 0.5 ml IM .ONCE ONE Stop: 10/26/17 10:01 Pregabalin (Lyrica) 100 mg PO TID [facility] Last Admin: 10/25/17 17:35 Dose: 100 mg Rosuvastatin Calcium (Crestor) 5 mg PO HS [facility] Last Admin: 10/24/17 22:04 Dose: 5 mg Physical Exam - Head Exam Head Exam: ATRAUMATIC - Eye Exam Eye Exam: Normal appearance - ENT Exam ENT Exam: Mucous Membranes Dry - Respiratory Exam Respiratory Exam: NORMAL BREATHING PATTERN - Cardiovascular Exam Cardiovascular Exam: +S1, +S2 - GI/Abdominal Exam GI & Abdominal Exam: Normal Bowel Sounds - Neurological Exam Neurological exam: Oriented x3 - Psychiatric Exam Psychiatric exam: Normal Affect, Normal Mood - Skin Skin Exam: Warm Results - Vital Signs Recent Vital Signs: Last Vital Signs Temp 98.1 F 10/25/17 16:29 Pulse 90 10/25/17 16:29 Resp 20 10/25/17 16:29 BP 150/89 10/25/17 16:29 Pulse Ox 96 10/25/17 16:29 - Labs Result Diagrams: 10/25/17 17:26 10/25/17 17:26 Labs: Laboratory Results - last 24 hr 10/24/17 10/24/17 10/25/17 14:53 21:08 01:52 WBC RBC Hgb Hct MCV MCH MCHC RDW Plt Count MPV Neut % (Auto) Lymph % (Auto) [place] % (Auto) Eos % (Auto) Baso % (Auto) Neut # Lymph # [place] # Eos # Baso # Sodium Potassium Chloride Carbon Dioxide Anion Gap BUN Creatinine Est GFR ( Amer) Est GFR (Non-Af Amer) POC Glucose (mg/dL) 408 H* 392 H Random Glucose Calcium Total Bilirubin AST ALT Alkaline Phosphatase Total Protein Albumin Globulin Albumin/Globulin Ratio Cold Agglutinins Negative Ur L.pneumophila Ag Negative Mycoplasma pneumon IgM Negative 10/25/17 10/25/17 10/25/17 06:38 08:09 09:11 WBC RBC Hgb Hct MCV MCH MCHC RDW Plt Count MPV Neut % (Auto) Lymph % (Auto) [place] % (Auto) Eos % (Auto) Baso % (Auto) Neut # Lymph # [place] # Eos # Baso # Sodium Potassium Chloride Carbon Dioxide Anion Gap BUN Creatinine Est GFR ( Amer) Est GFR (Non-Af Amer) POC Glucose (mg/dL) 485 H* 428 H* 442 H* Random Glucose Calcium Total Bilirubin AST ALT Alkaline Phosphatase Total Protein Albumin Globulin Albumin/Globulin Ratio Cold Agglutinins Ur L.pneumophila Ag Mycoplasma pneumon IgM 0110/25/17 10/25/17 11:33 16:54 16:55 WBC RBC Hgb Hct MCV MCH MCHC RDW Plt Count MPV Neut % (Auto) Lymph % (Auto) [place] % (Auto) Eos % (Auto) Baso % (Auto) Neut # Lymph # [place] # Eos # Baso # Sodium Potassium Chloride Carbon Dioxide Anion Gap BUN Creatinine Est GFR ( Amer) Est GFR (Non-Af Amer) POC Glucose (mg/dL) 493 H* > 500 H* > 500 H* Random Glucose Calcium Total Bilirubin AST ALT Alkaline Phosphatase Total Protein Albumin Globulin Albumin/Globulin Ratio Cold Agglutinins Ur L.pneumophila Ag Mycoplasma pneumon IgM 10/25/17 10/25/17 17:26 17:26 WBC 4.8 D RBC 3.61 L Hgb 10.3 L Hct 31.9 L MCV 88.5 MCH 28.6 MCHC 32.3 L RDW 14.3 Plt Count 124 L MPV 11.5 Neut % (Auto) 89.8 H Lymph % (Auto) 8.3 L [place] % (Auto) 1.5 Eos % (Auto) 0.1 Baso % (Auto) 0.3 Neut # 4.3 Lymph # 0.4 L [place] # 0.1 Eos # 0.0 Baso # 0.0 Sodium 124 L Potassium 5.5 H Chloride 96 L Carbon Dioxide 17 L Anion Gap 16 BUN 27 H Creatinine 1.3 H Est GFR ( Amer) 51 Est GFR (Non-Af Amer) 42 POC Glucose (mg/dL) Random Glucose 650 H* D Calcium 7.5 L Total Bilirubin 0.3 AST 21 ALT 31 Alkaline Phosphatase 101 Total Protein 6.9 Albumin 3.8 Globulin 3.1 Albumin/Globulin Ratio 1.2 Cold Agglutinins Ur L.pneumophila Ag Mycoplasma pneumon IgM Assessment & Plan (1) Pancytopenia Assessment and Plan: mild suspect leflunomide related WBC improved will check ferritin, retic count, b12, folate to further characterize anemia will check HIV and hepatitis panel no current indication for transfusion or growth factor support outpatient f/u Status: Acute
[2017-10-25 18:44] LABS: BANDS 3 % (0-2); LYMPHOCYTE 11 % (20-40); MONOCYTE 1 % (0-10); NEUTROPHIL 85 % (50-75); PLATELET ESTIMATE SLIGHTLY DECREASED (NORMAL); TOTAL CELLS COUNTED 100
--- NOTE | 2017-10-25 21:49 | CP.PCM.CON ---
History of Present Illness - History of Present Illness History of Present Illness: IDDM Past Patient History - Infectious Disease Hx of Infectious Diseases: None - Past Medical History & Family History Past Medical History?: Yes - Past Social History Smoking Status: Never Smoked - CARDIAC Hx Hypercholesterolemia: Yes Hx Hypertension: Yes - PULMONARY Hx Asthma: Yes Hx Chronic Obstructive Pulmonary Disease (COPD): Yes Hx Sleep Apnea: Yes - NEUROLOGICAL Hx Neurological Disorder: Yes (Diabetic neuropathy) - HEENT Hx HEENT Problems: No - RENAL Hx Chronic Kidney Disease: No - ENDOCRINE/METABOLIC Hx Hypothyroidism: Yes - HEMATOLOGICAL/ONCOLOGICAL Hx Anemia: Yes - INTEGUMENTARY Hx Dermatological Problems: Yes Other/Comment: Hx BLE TMA incisions 2 neuromas in healing - MUSCULOSKELETAL/RHEUMATOLOGICAL Hx Arthritis: Yes Hx Falls: No Hx Rheumatoid Arthritis: Yes - GASTROINTESTINAL Hx Gastritis: Yes - GENITOURINARY/GYNECOLOGICAL Hx Genitourinary Disorders: No - PSYCHIATRIC Hx Anxiety: Yes Hx Depression: Yes Hx Substance Use: No - SURGICAL HISTORY Hx Coronary Stent: Yes - ANESTHESIA Hx Anesthesia: Yes Hx Anesthesia Reactions: No Hx Malignant Hyperthermia: No Meds Home Medications: Home Medication List Medication Instructions Recorded Confirmed Type Azithromycin [Zithromax] 500 mg PO DAILY 5 Days tab 10/25/17 Rx Oseltamivir [Tamiflu Cap] 75 mg PO BID 4 Days cap 10/25/17 Rx guaiFENesin/Dextromethorphan 5 ml PO ONCE 3 Days udc 10/25/17 Rx [Robitussin DM] Allergies/Adverse Reactions: Allergies Allergy/AdvReac Type Severity Reaction Status Date / Time levofloxacin Allergy Intermediate RASH Verified 09/14/17 04:28 Penicillins Allergy Intermediate RASH Verified 09/14/17 04:28 Band-Aid Allergy Mild RASH Verified 09/14/17 04:28 hydromorphone AdvReac DELIRIUM Verified 09/14/17 04:28 fragrance Allergy Intermediate RASH Uncoded 09/14/17 04:28 - Medications Medications: Current Medications Albuterol Sulfate (Albuterol 0.083% Inhal Carole (2.5 Mg/3 Ml) Ud) 2.5 mg RQ6 [facility] Last Admin: 10/25/17 20:58 Dose: 2.5 mg Amlodipine Besylate (Norvasc) 5 mg PO DAILY [facility] Last Admin: 10/25/17 10:24 Dose: 5 mg Azithromycin (Zithromax) 500 mg PO DAILY [facility] Last Admin: 10/25/17 10:24 Dose: 500 mg Calcium/Vitamin D (Oscal-D 250 Mg-125 Units Tab) 1 tab PO DAILY [facility] Last Admin: 10/25/17 10:28 Dose: Not Given Guaifenesin (Robitussin) 100 mg PO BID PRN PRN Reason: Cough Insulin Aspart (Novolog) 0 unit SC ACHS [facility] PRN Reason: Protocol Last Admin: 10/25/17 17:15 Dose: 12 unit Insulin Detemir (Levemir) 20 unit SC Q12H [facility] Last Admin: 10/25/17 10:25 Dose: 20 unit Levothyroxine Sodium (Levothroid) 137 mcg PO DAILY@0630 [facility] Last Admin: 10/25/17 06:34 Dose: 137 mcg Methylprednisolone (Solu-Medrol) 40 mg IVP Q12H [facility] Last Admin: 10/25/17 10:24 Dose: 40 mg Oseltamivir Phosphate (Tamiflu Cap) 75 mg PO BID [facility] Stop: 10/29/17 13:45 Last Admin: 10/25/17 17:15 Dose: 75 mg Pantoprazole Sodium (Protonix Ec Tab) 40 mg PO ACB [facility] Last Admin: 10/25/17 06:34 Dose: 40 mg Pneumococcal Polyvalent Vaccine (Pneumovax 23 Vaccine) 0.5 ml IM .ONCE ONE Stop: 10/26/17 10:01 Pregabalin (Lyrica) 100 mg PO TID [facility] Last Admin: 10/25/17 17:35 Dose: 100 mg Rosuvastatin Calcium (Crestor) 5 mg PO HS [facility] Last Admin: 10/24/17 22:04 Dose: 5 mg Results - Vital Signs Recent Vital Signs: Last Vital Signs Temp 98.1 F 10/25/17 16:29 Pulse 90 10/25/17 16:29 Resp 20 10/25/17 16:29 BP 150/89 10/25/17 16:29 Pulse Ox 93 L 10/25/17 18:33 - Labs Result Diagrams: 10/25/17 17:26 10/25/17 17:26 Labs: Laboratory Results - last 24 hr 10/24/17 10/25/17 10/25/17 14:53 01:52 06:38 WBC RBC Hgb Hct MCV MCH MCHC RDW Plt Count MPV Neut % (Auto) Lymph % (Auto) [place] % (Auto) Eos % (Auto) Baso % (Auto) Neut # Lymph # [place] # Eos # Baso # Neutrophils % (Manual) Band Neutrophils % Lymphocytes % (Manual) Monocytes % (Manual) Platelet Estimate Sodium Potassium Chloride Carbon Dioxide Anion Gap BUN Creatinine Est GFR ( Amer) Est GFR (Non-Af Amer) POC Glucose (mg/dL) 392 H 485 H* Random Glucose Calcium Total Bilirubin AST ALT Alkaline Phosphatase Total Protein Albumin Globulin Albumin/Globulin Ratio Cold Agglutinins Negative Ur L.pneumophila Ag Negative Mycoplasma pneumon IgM Negative 10/25/17 10/25/17 10/25/17 08:09 09:11 11:33 WBC RBC Hgb Hct MCV MCH MCHC RDW Plt Count MPV Neut % (Auto) Lymph % (Auto) [place] % (Auto) Eos % (Auto) Baso % (Auto) Neut # Lymph # [place] # Eos # Baso # Neutrophils % (Manual) Band Neutrophils % Lymphocytes % (Manual) Monocytes % (Manual) Platelet Estimate Sodium Potassium Chloride Carbon Dioxide Anion Gap BUN Creatinine Est GFR ( Amer) Est GFR (Non-Af Amer) POC Glucose (mg/dL) 428 H* 442 H* 493 H* Random Glucose Calcium Total Bilirubin AST ALT Alkaline Phosphatase Total Protein Albumin Globulin Albumin/Globulin Ratio Cold Agglutinins Ur L.pneumophila Ag Mycoplasma pneumon IgM 10/25/17 10/25/17 10/25/17 16:54 16:55 17:26 WBC 4.8 D RBC 3.61 L Hgb 10.3 L Hct 31.9 L MCV 88.5 MCH 28.6 MCHC 32.3 L RDW 14.3 Plt Count 124 L MPV 11.5 Neut % (Auto) 89.8 H Lymph % (Auto) 8.3 L [place] % (Auto) 1.5 Eos % (Auto) 0.1 Baso % (Auto) 0.3 Neut # 4.3 Lymph # 0.4 L [place] # 0.1 Eos # 0.0 Baso # 0.0 Neutrophils % (Manual) 85 H Band Neutrophils % 3 H Lymphocytes % (Manual) 11 L Monocytes % (Manual) 1 Platelet Estimate Slightly decreased L Sodium Potassium Chloride Carbon Dioxide Anion Gap BUN Creatinine Est GFR ( Amer) Est GFR (Non-Af Amer) POC Glucose (mg/dL) > 500 H* > 500 H* Random Glucose Calcium Total Bilirubin AST ALT Alkaline Phosphatase Total Protein Albumin Globulin Albumin/Globulin Ratio Cold Agglutinins Ur L.pneumophila Ag Mycoplasma pneumon IgM 10/25/17 17:26 WBC RBC Hgb Hct MCV MCH MCHC RDW Plt Count MPV Neut % (Auto) Lymph % (Auto) [place] % (Auto) Eos % (Auto) Baso % (Auto) Neut # Lymph # [place] # Eos # Baso # Neutrophils % (Manual) Band Neutrophils % Lymphocytes % (Manual) Monocytes % (Manual) Platelet Estimate Sodium 124 L Potassium 5.5 H Chloride 96 L Carbon Dioxide 17 L Anion Gap 16 BUN 27 H Creatinine 1.3 H Est GFR ( Amer) 51 Est GFR (Non-Af Amer) 42 POC Glucose (mg/dL) Random Glucose 650 H* D Calcium 7.5 L Total Bilirubin 0.3 AST 21 ALT 31 Alkaline Phosphatase 101 Total Protein 6.9 Albumin 3.8 Globulin 3.1 Albumin/Globulin Ratio 1.2 Cold Agglutinins Ur L.pneumophila Ag Mycoplasma pneumon IgM Assessment & Plan (1) Diabetes mellitus, insulin dependent (IDDM), uncontrolled Assessment and Plan: Endocrine consult reason for consult: uncontrolled diabetes Source : patient & chart review Ms. Mcguire is 57 y/o admitted for sob /bronchitis as per pt. has DM x 20 years (+) neuropathy , (-) retinopathy , (?) nephropathy (+) CAD s/p stents (+ ) PVD s/p bilateral toes amputations outpatient diabetes management regimen : levemir 20 units bid , januvia 100 mg po qd & Novolog scale tid with meals inpatient diabetes management regimen : levemir 20 units bid & novolog high dose scale blood glucose log :300-400 , on solu-medrol 40 mg po bid NO hypoglycemia also with thyroid cancer s/p total thyroidectomy 2006 s/p multiple WBS last 2009 (-) , on synthroid 137 mcg po qd Allergy , noted Past medical history :HTN , Hyperlipidemia , rheumatoid atheritis , pancytopeia Past surgical history : bilateral metatarsal ampution , total thyroidectomy , low back surgery Psychiatry history : (+) psychiatry disorder Social history : denies smoking , ETOH use , illicit drug use Family history : parents with DM ROS: Constitutional: denies fever ,tiredness/weakness .HEENT: denies earache, change in voice .Respiratory: occasional cough cough, denies sob . CVS :no chest pain, no palpitations . Abdomen : no abdominal pain, no nausea /vomiting , no change bowel movement . ACUTE COORDINATOR : denies light-headedness, dizziness. Extremities : no edema , no tremors .Skin: no itching, no rash Physical exam Well developed AAO x3 , ,NAD VSS HEENT: norm cephalic, atraumatic , no lid lag , no exophthalmos NECK: supple, no palpable lymphadenopathy THYROID: no palpable thyroid tissue , not tender , healed necklace scar CHEST: fair air entry, bilateral, CVS: S1,S2 ABDOMEN: bowel sound present, benign, obese, no wide purple striae , no bruises EXTREMITIES: no edema, clubbing or cyanosis, no palpable hand tremors , bilateral metatarsal amputation Skin : acanthosis nigricans lab: a1c 12.4 , cr 1.3 , gfr 42 , Assessment uncontrolled IDDM steroid induced hyperglycemia PVD s/p amputations post-op hypothyroid thyroid cancer obesity plan increase Levemir 22 bid stop Novolog start Novoloin R low dose coverage, no 3 am coverage start novoloin R 10 units tid with meals if eat > 60% continue synthroid 137 mcg po qd will obtain Thyroid function nutrtional evaluation /diabetic education Thank you for allowing me to participate in the care of the patient, we will follow with you. Status: Acute (2) Thyroid cancer Status: Acute (3) Post-surgical hypothyroidism Status: Chronic Priority: Low (4) Steroid-induced hyperglycemia Status: Acute (5) Obesity Status: Acute
[2017-10-25] MEDS: (Novolin R) Insulin Human Regular 100 units/ml vial SC SCH (21:59)
--- NOTE | 2017-10-25 22:30 | CP.PCM.PN ---
Subjective - Date & Time of Evaluation Date of Evaluation: 10/25/17 Time of Evaluation: 22:30 - Subjective Subjective: AFEBRILE, CONGESTED, LABS ; REVIEWED. SEEN BY HEMATOLOGY FOR PANCYTOPENIA. ON ABX /AND ANTIVIRAL S Objective - Vital Signs/Intake and Output Vital Signs (last 24 hours): Temp Pulse Resp BP Pulse Ox 98.1 F 90 20 150/89 93 L 10/25/17 16:29 10/25/17 16:29 10/25/17 16:29 10/25/17 16:29 10/25/17 18:33 Intake and Output: 10/25/17 10/26/17 18:59 06:59 Intake Total 280 Balance 280 - Medications Medications: Current Medications Albuterol Sulfate (Albuterol 0.083% Inhal Carole (2.5 Mg/3 Ml) Ud) 2.5 mg IH RQ6 [facility] Last Admin: 10/25/17 20:58 Dose: 2.5 mg Amlodipine Besylate (Norvasc) 5 mg PO DAILY [facility] Last Admin: 10/25/17 10:24 Dose: 5 mg Azithromycin (Zithromax) 500 mg PO DAILY [facility] Last Admin: 10/25/17 10:24 Dose: 500 mg Calcium/Vitamin D (Oscal-D 250 Mg-125 Units Tab) 1 tab PO DAILY [facility] Last Admin: 10/25/17 10:28 Dose: Not Given Guaifenesin (Robitussin) 100 mg PO BID PRN PRN Reason: Cough Insulin Detemir (Levemir) 22 unit SC Q12H [facility] Last Admin: 10/25/17 21:58 Dose: 22 unit Insulin Human Regular (Novolin R) 0 unit SC ACHS [facility] PRN Reason: Protocol Last Admin: 10/25/17 21:59 Dose: 3 unit Insulin Human Regular (Novolin R) 10 unit SC TID [facility] Levothyroxine Sodium (Levothroid) 137 mcg PO DAILY@0630 [facility] Last Admin: 10/25/17 06:34 Dose: 137 mcg Methylprednisolone (Solu-Medrol) 40 mg IVP Q12H [facility] Last Admin: 10/25/17 22:00 Dose: 40 mg Oseltamivir Phosphate (Tamiflu Cap) 75 mg PO BID [facility] Stop: 10/29/17 13:45 Last Admin: 10/25/17 17:15 Dose: 75 mg Pantoprazole Sodium (Protonix Ec Tab) 40 mg PO ACB [facility] Last Admin: 10/25/17 06:34 Dose: 40 mg Pneumococcal Polyvalent Vaccine (Pneumovax 23 Vaccine) 0.5 ml IM .ONCE ONE Stop: 10/26/17 10:01 Pregabalin (Lyrica) 100 mg PO TID [facility] Last Admin: 10/25/17 17:35 Dose: 100 mg Rosuvastatin Calcium (Crestor) 5 mg PO HS [facility] Last Admin: 10/25/17 21:59 Dose: 5 mg - Labs Labs: 10/25/17 17:26 10/25/17 17:26 - Constitutional Appears: No Acute Distress - Eye Exam Eye Exam: EOMI, PERRL - ENT Exam ENT Exam: Normal Oropharynx - Neck Exam Neck Exam: Normal Inspection - Respiratory Exam Respiratory Exam: Prolonged Expiratory Phase - Cardiovascular Exam Cardiovascular Exam: REGULAR RHYTHM, +S1, +S2 - GI/Abdominal Exam GI & Abdominal Exam: Soft, Normal Bowel Sounds - Extremities Exam Extremities Exam: absent: Calf Tenderness, Pedal Edema - Neurological Exam Neurological Exam: Alert, Awake, CN II-XII Intact, Oriented x3, Reflexes Normal - Psychiatric Exam Psychiatric exam: Normal Mood - Skin Skin Exam: Normal Color, Warm Assessment and Plan (1) Flu syndrome Assessment & Plan: continue po tamiflu 75mg po bid x5days on iv zithromax 500mg iv daily. started on steroids as per pulmonary. PULMONARY TOILET. Status: Acute (2) Bronchitis Status: Acute (3) BRITTANEY (acute kidney injury) Assessment & Plan: improving Status: Acute (4) Diabetes mellitus, insulin dependent (IDDM), uncontrolled Status: Acute (5) Neutropenia Assessment & Plan: w/u in progress. Status: Acute
[2017-10-26] MEDS: Albuterol 0.083% Inhal Sol (2.5 mg/3 mL) UD IH SCH ×4 (01:38→21:31)
--- NOTE | 2017-10-26 04:15 | PN ---
DATE: SUBJECTIVE: The patient is 57-year-old female. The patient is seen and examined at the bedside. Her boyfriend was sitting at the bedside also, getting better, shortness of breath better, coughing better, fever is better. No headache. No dizziness. No chest pain. No palpations. No hematuria or hematochezia. PHYSICAL EXAMINATION: VITAL SIGNS: Temperature 98.1, pulse 90, blood pressure 150/89, respiratory rate 20. HEENT: Head normocephalic and atraumatic. Eyes: PERRLA. Extraocular muscles intact. Conjunctivae clear. Nose patent. Mucous membranes moist. NECK: Supple. No carotid bruits. No JVD or thyromegaly. CHEST: Bilaterally symmetrical. HEART: S1 and S2 positive. LUNGS: Clear to auscultation. ABDOMEN: Soft. Bowel sounds positive. No organomegaly. EXTREMITIES: No edema, no cyanosis. NEUROLOGIC: The patient is awake and alert. Moving all four extremities. No focal deficits. MEDICATIONS: Albuterol, Crestor, Levemir, Lovenox, Lyrica, Norvasc, insulin, [place], Pneumovax, Protonix, budesonide, Solu-Medrol, Novolin, Tamiflu, Zithromax. LABORATORY DATA: White blood cells 12.8, hemoglobin 10.3, hematocrit 31.9, platelets 124. Sodium 125, potassium 5.5, BUN 27, creatinine 1.3, glucose 500. ASSESSMENT: Ms. Jo Ann Mcguire is 57-year-old lady with anemia, hyponatremia, hyperkalemia, hypochloremia, renal insufficiency, uncontrolled diabetes mellitus, hypocalcemia, glucosuria, human immunodeficiency virus negative, influenza type A and B negative. Urine Legionella pneumoniae are negative. Mycoplasma pneumoniae immunoglobulin M is negative. Seen by Dr. Zhen Santo, Infectious Disease, appreciated, but there is no input in her progress note. There is no plan in Dr. Zhen Santo's notes. I do not know about her course of antibiotics. PLAN: I reviewed Dr. Chris Momin's note. The patient has thyroid cancer, postsurgical hypothyroidism with fever-induced hyperglycemia, obesity,uncontrolled diabetes mellitus, severe peripheral vascular disease. Dr. Chris Momin increased the Levemir to 22 b.i.d. Stop NovoLog. Start Novolin R low dose coverage, no 3 a.m. coverage. Start NovoLog R at 10 units t.i.d. with meals if eating more than 50%, continue Synthroid. Maybe, the patient needs diabetic evaluation. Reviewed Dr. Rohan Ruth's notes. Has history of COPD, hypertension, rheumatoid arthritis. Mild pancytopenia, suspect leflunomide related. Dr. Ruth will check anemia workup. No current indication of transfusion or growth factor support. Repeat labs. We will follow up. Lena Diane MD
[2017-10-26 06:40] LABS: % CD4 (T HELPER CELL) 49 Percent (30-61); % CD8 (SUPPRESSOR T CELL) 32 Percent (12-42); ABSOLUTE CD4 CELLS 1114 Cells/mcL (490-1740); ABSOLUTE CD8 CELLS 740 Cells/mcL (180-1170); ABSOLUTE LYMPHOCYTES 2283 Cells/mcL (850-3900); HELPER/SUPPRESSOR RATIO 1.51 Ratio (0.86-5.00)
[2017-10-26] MEDS: Pantoprazole 40 mg EC Tab PO SCH (06:44)
[2017-10-26] MEDS: Insulin Detemir 100 units/ml Vial (Levemir) SC SCH ×3 (06:54→20:50)
[2017-10-26] MEDS: (Novolin R) Insulin Human Regular 100 units/ml vial SC SCH ×8 (08:25→21:43)
[2017-10-26 08:34] LABS: HEMOGLOBIN 9.7 g/dL (11.0-16.0); MEAN CELL VOLUME 88.7 fL (81.0-99.0); MEAN CORPUSCULAR HGB CONC 32.7 g/dL (33.0-37.0); MEAN PLATELET VOLUME 11.9 fL (7.2-11.7); RBC 3.35 Mil/uL (3.80-5.20); RED CELL DISTRIBUTION WIDTH 14.1 % (11.5-14.5); WHITE BLOOD COUNT 6.7 K/uL (4.8-10.8)
[2017-10-26 09:32] LABS: HEPATITIS B SURFACE AG NEGATIVE (NEGATIVE)
[2017-10-26 09:37] LABS: HEPATITIS A IGM NEGATIVE (NEGATIVE); HEPATITIS B CORE AB Negative (NEGATIVE)
[2017-10-26 09:41] LABS: HEPATITIS C ANTIBODY Negative (NEGATIVE)
[2017-10-26 09:54] LABS: CALCIUM 7.5 mg/dl (8.6-10.4)
[2017-10-26] MEDS ORDERED: Pneumococcal 23-Valent Vaccine IM ONE (10:00)
[2017-10-26 10:09] LABS: FOLATE 8.5 ng/mL
[2017-10-26] MEDS: MethylPREDNISolone 40 mg Vial IVP SCH (10:30)
[2017-10-26] MEDS: Calcium-Vit D 250 mg-125 Units Tab UD PO SCH (10:50)
--- NOTE | 2017-10-26 15:12 | CP.PCM.PN ---
Subjective - Date & Time of Evaluation Date of Evaluation: 10/26/17 Time of Evaluation: 09:00 - Subjective Subjective: Patient seen and examined at bedside. She states that she is no longer short of breath. She states she has an occasional cough productive of sputum, but feels much improved from before. She denies chest pain, fever, dizziness, headaches. Physical examination Respiratory: Clear to auscultation bilaterally. Good air movement. No rales, rhonchi or wheezing. Assessment and plan 57 year old female with a history of DM, asthma, anxiety, HTN, gastritis, HLD, hypothyroidism, rheumatoid arthritis who was admitted on 10/22/17 for complaints of 4 day history of productive cough, subjective fever, shortness of breath, nasal congestion. Pulmonology consulted for evaluation of shortness of breath, rule out bronchitis. Asthma exacerbation Afebrile, not tachypneic. O2 sat 93% Negative for influenza A/B, HIV, Mycoplasma pneumonia, Legionella, Hep A, B, C Blood cultures pending. Sputum culture pending. Stool culture negative for salmonella, shigella, campylobacter Glucose elevated, likely due to steroids and hx of DM. Continue to monitor blood glucose level. Continue current meds: Albuterol 2.5mg Q6 Azithromycin 500mg PO daily Robitussin 100mg BID PRN Prednisone 20mg PO Tamiflu 75mg PO BID Objective - Vital Signs/Intake and Output Vital Signs (last 24 hours): Temp Pulse Resp BP Pulse Ox 97.5 F L 88 20 125/81 93 L 10/26/17 08:55 10/26/17 08:55 10/26/17 08:55 10/26/17 08:55 10/26/17 08:55 - Medications Medications: Current Medications Albuterol Sulfate (Albuterol 0.083% Inhal Carole (2.5 Mg/3 Ml) Ud) 2.5 mg IH RQ6 [facility] Last Admin: 10/26/17 13:11 Dose: 2.5 mg Amlodipine Besylate (Norvasc) 5 mg PO DAILY [facility] Last Admin: 10/26/17 10:29 Dose: 5 mg Azithromycin (Zithromax) 500 mg PO DAILY [facility] Last Admin: 10/26/17 10:28 Dose: 500 mg Calcium/Vitamin D (Oscal-D 250 Mg-125 Units Tab) 1 tab PO DAILY [facility] Last Admin: 10/26/17 10:50 Dose: Not Given Guaifenesin (Robitussin) 100 mg PO BID PRN PRN Reason: Cough Insulin Detemir (Levemir) 22 unit SC Q12H [facility] Last Admin: 10/26/17 10:28 Dose: 22 unit Insulin Human Regular (Novolin R) 0 unit SC ACHS [facility] PRN Reason: Protocol Last Admin: 10/26/17 12:25 Dose: 6 unit Insulin Human Regular (Novolin R) 15 unit SC TID [facility] Levothyroxine Sodium (Levothroid) 137 mcg PO DAILY@0630 [facility] Last Admin: 10/26/17 06:44 Dose: 137 mcg Oseltamivir Phosphate (Tamiflu Cap) 75 mg PO BID [facility] Stop: 10/29/17 13:45 Last Admin: 10/26/17 10:29 Dose: 75 mg Pantoprazole Sodium (Protonix Ec Tab) 40 mg PO ACB [facility] Last Admin: 10/26/17 06:44 Dose: 40 mg Prednisone (Prednisone Tab) 20 mg PO DAILY [facility] Pregabalin (Lyrica) 100 mg PO TID [facility] Last Admin: 10/26/17 13:35 Dose: 100 mg Rosuvastatin Calcium (Crestor) 5 mg PO HS [facility] Last Admin: 10/25/17 21:59 Dose: 5 mg - Labs Labs: 10/26/17 08:26 10/26/17 08:26
--- NOTE | 2017-10-26 17:54 | CP.PCM.PN ---
Subjective - Date & Time of Evaluation Date of Evaluation: 10/26/17 Time of Evaluation: 10:40 - Subjective Subjective: 57 yr female w/ history of anemia, anxiety, arthritis, asthma, COPD, depression, DM, gastritis, HTN, hypothyroidism from thyroid malignancy, rheumatoid arthritis, sleep apnea, diabetic nephropathy, and CAD. Pt seen at bedside. She is still wheezing and has a runny nose. Denies any fever, chills, ear pain, throat pain, headache, chest pain, or urinary changes. Objective - Vital Signs/Intake and Output Vital Signs (last 24 hours): Temp Pulse Resp BP Pulse Ox 97.3 F L 84 20 125/78 95 10/26/17 15:00 10/26/17 15:00 10/26/17 15:00 10/26/17 15:00 10/26/17 15:00 - Medications Medications: Current Medications Albuterol Sulfate (Albuterol 0.083% Inhal Carole (2.5 Mg/3 Ml) Ud) 2.5 mg IH RQ6 [facility] Last Admin: 10/26/17 13:11 Dose: 2.5 mg Amlodipine Besylate (Norvasc) 5 mg PO DAILY [facility] Last Admin: 10/26/17 10:29 Dose: 5 mg Azithromycin (Zithromax) 500 mg PO DAILY [facility] Last Admin: 10/26/17 10:28 Dose: 500 mg Calcium/Vitamin D (Oscal-D 250 Mg-125 Units Tab) 1 tab PO DAILY [facility] Last Admin: 10/26/17 10:50 Dose: Not Given Fluticasone Propionate (Flonase) 2 spr SUSU DAILY [facility] Guaifenesin (Robitussin) 100 mg PO BID PRN PRN Reason: Cough Insulin Detemir (Levemir) 22 unit SC Q12H [facility] Last Admin: 10/26/17 10:28 Dose: 22 unit Insulin Human Regular (Novolin R) 0 unit SC ACHS [facility] PRN Reason: Protocol Last Admin: 10/26/17 17:20 Dose: 6 unit Insulin Human Regular (Novolin R) 15 unit SC TID [facility] Last Admin: 10/26/17 17:34 Dose: 15 unit Levothyroxine Sodium (Levothroid) 137 mcg PO DAILY@0630 [facility] Last Admin: 10/26/17 06:44 Dose: 137 mcg Montelukast Sodium (Singulair) 10 mg PO HS [facility] Oseltamivir Phosphate (Tamiflu Cap) 75 mg PO BID [facility] Stop: 10/29/17 13:45 Last Admin: 10/26/17 17:32 Dose: 75 mg Pantoprazole Sodium (Protonix Ec Tab) 40 mg PO ACB [facility] Last Admin: 10/26/17 06:44 Dose: 40 mg Prednisone (Prednisone Tab) 20 mg PO DAILY [facility] Pregabalin (Lyrica) 100 mg PO TID [facility] Last Admin: 10/26/17 17:33 Dose: 100 mg Rosuvastatin Calcium (Crestor) 5 mg PO HS [facility] Last Admin: 10/25/17 21:59 Dose: 5 mg - Labs Labs: 10/26/17 08:26 10/26/17 08:26 - Constitutional Appears: Chronically Ill - Head Exam Head Exam: ATRAUMATIC, NORMAL INSPECTION, NORMOCEPHALIC - Eye Exam Eye Exam: EOMI, Normal appearance, PERRL Pupil Exam: NORMAL ACCOMODATION, PERRL - ENT Exam ENT Exam: Mucous Membranes Dry - Neck Exam Neck Exam: Full ROM, Normal Inspection. absent: Lymphadenopathy - Respiratory Exam Respiratory Exam: Decreased Breath Sounds, Wheezes - Cardiovascular Exam Cardiovascular Exam: REGULAR RHYTHM, +S1, +S2. absent: Murmur - GI/Abdominal Exam GI & Abdominal Exam: Soft, Normal Bowel Sounds. absent: Tenderness - Extremities Exam Additional comments: B/L ME amputation incision healing - Back Exam Back Exam: NORMAL INSPECTION - Neurological Exam Neurological Exam: Alert, Awake, CN II-XII Intact, Oriented x3 - Psychiatric Exam Psychiatric exam: Normal Affect, Normal Mood - Skin Skin Exam: Dry, Intact, Normal Color, Warm Assessment and Plan (1) Diarrhea Status: Acute (2) Bronchospasm Status: Acute (3) Neutropenia Status: Acute (4) Thrombocytopenia Status: Acute (5) Acute renal failure (ARF) Status: Acute (6) Influenza-like illness Status: Acute (7) Anemia Status: Chronic (8) Type 2 diabetes mellitus with hyperglycemia Status: Chronic - Assessment and Plan (Free Text) Plan: Added flonase & singulair. PO tamiflu. PO zithro & IV solumendryl onboard. Consults: Endocrine - Dr. Momin Fruit Culler/Oncologist - Dr. Ruth ID - Dr. Santo - tamiflu for 5 days, droplet precautions Satellite Technician - Dr. Arrieta Reviewed: CXR = WNL, poor inspiratory effort ECG = ABNORMAL - NSR, L axis deviation, L ventricular hypertrophy
--- NOTE | 2017-10-26 20:31 | CP.PCM.PN ---
Subjective - Date & Time of Evaluation Date of Evaluation: 10/26/17 Time of Evaluation: 20:31 - Subjective Subjective: uncontrolled DM Objective - Vital Signs/Intake and Output Vital Signs (last 24 hours): Temp Pulse Resp BP Pulse Ox 97.3 F L 84 20 125/78 95 10/26/17 15:00 10/26/17 15:00 10/26/17 15:00 10/26/17 15:00 10/26/17 15:00 Intake and Output: 10/26/17 10/27/17 18:59 06:59 Intake Total 280 Balance 280 - Medications Medications: Current Medications Albuterol Sulfate (Albuterol 0.083% Inhal Carole (2.5 Mg/3 Ml) Ud) 2.5 mg IH RQ6 [facility] Last Admin: 10/26/17 13:11 Dose: 2.5 mg Amlodipine Besylate (Norvasc) 5 mg PO DAILY [facility] Last Admin: 10/26/17 10:29 Dose: 5 mg Azithromycin (Zithromax) 500 mg PO DAILY [facility] Last Admin: 10/26/17 10:28 Dose: 500 mg Calcium/Vitamin D (Oscal-D 250 Mg-125 Units Tab) 1 tab PO DAILY [facility] Last Admin: 10/26/17 10:50 Dose: Not Given Fluticasone Propionate (Flonase) 2 spr SUSU DAILY [facility] Guaifenesin (Robitussin) 100 mg PO BID PRN PRN Reason: Cough Insulin Detemir (Levemir) 30 unit SC Q12H [facility] Insulin Human Regular (Novolin R) 0 unit SC ACHS [facility] PRN Reason: Protocol Last Admin: 10/26/17 17:20 Dose: 6 unit Insulin Human Regular (Novolin R) 20 unit SC TID [facility] Levothyroxine Sodium (Levothroid) 137 mcg PO DAILY@0630 [facility] Last Admin: 10/26/17 06:44 Dose: 137 mcg Montelukast Sodium (Singulair) 10 mg PO HS [facility] Oseltamivir Phosphate (Tamiflu Cap) 75 mg PO BID [facility] Stop: 10/29/17 13:45 Last Admin: 10/26/17 17:32 Dose: 75 mg Pantoprazole Sodium (Protonix Ec Tab) 40 mg PO ACB [facility] Last Admin: 10/26/17 06:44 Dose: 40 mg Prednisone (Prednisone Tab) 20 mg PO DAILY [facility] Pregabalin (Lyrica) 100 mg PO TID [facility] Last Admin: 10/26/17 17:33 Dose: 100 mg Rosuvastatin Calcium (Crestor) 5 mg PO HS [facility] Last Admin: 10/25/17 21:59 Dose: 5 mg - Labs Labs: 10/26/17 08:26 10/26/17 08:26 Assessment and Plan (1) Diabetes mellitus, insulin dependent (IDDM), uncontrolled Assessment & Plan: Assessment and Plan: Endocrine consult f/u uncontrolled diabetes Source : patient & chart review Ms. Mcguire is 57 y/o admitted for sob /bronchitis as per pt. has DM x 20 years (+) neuropathy , (-) retinopathy , (?) nephropathy (+) CAD s/p stents (+ ) PVD s/p bilateral toes amputations blood glucose log :400-600 , solu-medrol 40 mg po bid stopped today , will start prednisone 20 mg po qd NO hypoglycemia also with thyroid cancer s/p total thyroidectomy 2006 s/p multiple WBS last 2009 (-) , on synthroid 137 mcg po qd Allergy , noted Past medical history :HTN , Hyperlipidemia , rheumatoid atheritis , pancytopeia Past surgical history : bilateral metatarsal ampution , total thyroidectomy , low back surgery Psychiatry history : (+) psychiatry disorder Social history : denies smoking , ETOH use , illicit drug use Family history : parents with DM ROS: Constitutional: denies fever ,tiredness/weakness .HEENT: denies earache, change in voice .Respiratory: occasional cough cough, denies sob . CVS :no chest pain, no palpitations . Abdomen : no abdominal pain, no nausea /vomiting , no change bowel movement . FACILITIES ENGINEERING MANAGER : denies light-headedness, dizziness. Extremities : no edema , no tremors .Skin: no itching, no rash Physical exam Well developed AAO x3 , ,NAD VSS HEENT: norm cephalic, atraumatic , no lid lag , no exophthalmos NECK: supple, no palpable lymphadenopathy THYROID: no palpable thyroid tissue , not tender , healed necklace scar CHEST: fair air entry, bilateral, CVS: S1,S2 ABDOMEN: bowel sound present, benign, obese, no wide purple striae , no bruises EXTREMITIES: no edema, clubbing or cyanosis, no palpable hand tremors , bilateral metatarsal amputation Skin : acanthosis nigricans lab: a1c 12.4 , cr 1.3 , gfr 42 , Assessment uncontrolled IDDM steroid induced hyperglycemia PVD s/p amputations post-op hypothyroid thyroid cancer obesity plan increase Levemir 30 bid continue Novoloin R low dose coverage, no 3 am coverage increase novoloin R 20 units tid with meals if eat > 60% continue synthroid 137 mcg po qd will obtain Thyroid function nutritional evaluation /diabetic education we will follow with you. Status: Acute (2) Thyroid cancer Status: Acute (3) Post-surgical hypothyroidism Status: Chronic (4) Steroid-induced hyperglycemia Status: Acute (5) Obesity Status: Acute
--- NOTE | 2017-10-26 21:59 | CP.PCM.PN ---
Subjective - Date & Time of Evaluation Date of Evaluation: 10/26/17 Time of Evaluation: 10:50 - Subjective Subjective: Feeling better Objective - Vital Signs/Intake and Output Vital Signs (last 24 hours): Temp Pulse Resp BP Pulse Ox 97.3 F L 84 20 125/78 95 10/26/17 15:00 10/26/17 15:00 10/26/17 15:00 10/26/17 15:00 10/26/17 15:00 Intake and Output: 10/26/17 10/27/17 18:59 06:59 Intake Total 280 Balance 280 - Medications Medications: Current Medications Albuterol Sulfate (Albuterol 0.083% Inhal Carole (2.5 Mg/3 Ml) Ud) 2.5 mg IH RQ6 [facility] Last Admin: 10/26/17 21:31 Dose: 2.5 mg Amlodipine Besylate (Norvasc) 5 mg PO DAILY [facility] Last Admin: 10/26/17 10:29 Dose: 5 mg Azithromycin (Zithromax) 500 mg PO DAILY [facility] Last Admin: 10/26/17 10:28 Dose: 500 mg Calcium/Vitamin D (Oscal-D 250 Mg-125 Units Tab) 1 tab PO DAILY [facility] Last Admin: 10/26/17 10:50 Dose: Not Given Fluticasone Propionate (Flonase) 2 spr SUSU DAILY [facility] Guaifenesin (Robitussin) 100 mg PO BID PRN PRN Reason: Cough Insulin Detemir (Levemir) 30 unit SC Q12H [facility] Last Admin: 10/26/17 20:50 Dose: 30 unit Insulin Human Regular (Novolin R) 0 unit SC ACHS [facility] PRN Reason: Protocol Last Admin: 10/26/17 21:43 Dose: 6 unit Insulin Human Regular (Novolin R) 20 unit SC TID [facility] Levothyroxine Sodium (Levothroid) 137 mcg PO DAILY@0630 [facility] Last Admin: 10/26/17 06:44 Dose: 137 mcg Montelukast Sodium (Singulair) 10 mg PO HS [facility] Last Admin: 10/26/17 21:42 Dose: 10 mg Oseltamivir Phosphate (Tamiflu Cap) 75 mg PO BID [facility] Stop: 10/29/17 13:45 Last Admin: 10/26/17 17:32 Dose: 75 mg Pantoprazole Sodium (Protonix Ec Tab) 40 mg PO ACB [facility] Last Admin: 10/26/17 06:44 Dose: 40 mg Prednisone (Prednisone Tab) 20 mg PO DAILY [facility] Pregabalin (Lyrica) 100 mg PO TID [facility] Last Admin: 10/26/17 17:33 Dose: 100 mg Rosuvastatin Calcium (Crestor) 5 mg PO HS [facility] Last Admin: 10/26/17 21:42 Dose: 5 mg - Labs Labs: 10/26/17 08:26 10/26/17 08:26 - Head Exam Head Exam: ATRAUMATIC - Eye Exam Eye Exam: Normal appearance - ENT Exam ENT Exam: Mucous Membranes Dry - Respiratory Exam Respiratory Exam: NORMAL BREATHING PATTERN - Cardiovascular Exam Cardiovascular Exam: +S1, +S2 - GI/Abdominal Exam GI & Abdominal Exam: Normal Bowel Sounds Assessment and Plan (1) Pancytopenia Assessment & Plan: prior leflunomide likely immune mediated element of CKD Status: Acute
--- NOTE | 2017-10-26 22:42 | CP.PCM.PN ---
Subjective - Date & Time of Evaluation Date of Evaluation: 10/26/17 Time of Evaluation: 15:00 - Subjective Subjective: afebrile, Feeling much better. Denies shortness of breath. Occasional cough. Pulmonary follow-up noted. Labs reviewed. Pancytopenia improved on steroids. Objective - Vital Signs/Intake and Output Vital Signs (last 24 hours): Temp Pulse Resp BP Pulse Ox 97.3 F L 84 20 125/78 95 10/26/17 15:00 10/26/17 15:00 10/26/17 15:00 10/26/17 15:00 10/26/17 15:00 Intake and Output: 10/26/17 10/27/17 18:59 06:59 Intake Total 280 Balance 280 - Medications Medications: Current Medications Albuterol Sulfate (Albuterol 0.083% Inhal Carole (2.5 Mg/3 Ml) Ud) 2.5 mg IH RQ6 [facility] Last Admin: 10/26/17 21:31 Dose: 2.5 mg Amlodipine Besylate (Norvasc) 5 mg PO DAILY [facility] Last Admin: 10/26/17 10:29 Dose: 5 mg Azithromycin (Zithromax) 500 mg PO DAILY [facility] Last Admin: 10/26/17 10:28 Dose: 500 mg Calcium/Vitamin D (Oscal-D 250 Mg-125 Units Tab) 1 tab PO DAILY [facility] Last Admin: 10/26/17 10:50 Dose: Not Given Fluticasone Propionate (Flonase) 2 spr SUSU DAILY [facility] Guaifenesin (Robitussin) 100 mg PO BID PRN PRN Reason: Cough Insulin Detemir (Levemir) 30 unit SC Q12H [facility] Last Admin: 10/26/17 20:50 Dose: 30 unit Insulin Human Regular (Novolin R) 0 unit SC ACHS [facility] PRN Reason: Protocol Last Admin: 10/26/17 21:43 Dose: 6 unit Insulin Human Regular (Novolin R) 20 unit SC TID [facility] Levothyroxine Sodium (Levothroid) 137 mcg PO DAILY@0630 [facility] Last Admin: 10/26/17 06:44 Dose: 137 mcg Montelukast Sodium (Singulair) 10 mg PO HS [facility] Last Admin: 10/26/17 21:42 Dose: 10 mg Oseltamivir Phosphate (Tamiflu Cap) 75 mg PO BID [facility] Stop: 10/29/17 13:45 Last Admin: 10/26/17 17:32 Dose: 75 mg Pantoprazole Sodium (Protonix Ec Tab) 40 mg PO ACB [facility] Last Admin: 10/26/17 06:44 Dose: 40 mg Prednisone (Prednisone Tab) 20 mg PO DAILY [facility] Pregabalin (Lyrica) 100 mg PO TID [facility] Last Admin: 10/26/17 17:33 Dose: 100 mg Rosuvastatin Calcium (Crestor) 5 mg PO HS [facility] Last Admin: 10/26/17 21:42 Dose: 5 mg - Labs Labs: 10/26/17 08:26 10/26/17 08:26 - Constitutional Appears: No Acute Distress - Head Exam Head Exam: NORMAL INSPECTION - Eye Exam Eye Exam: EOMI, PERRL - ENT Exam ENT Exam: Normal Oropharynx - Neck Exam Neck Exam: Normal Inspection - Respiratory Exam Respiratory Exam: Wheezes (less wheeze.), NORMAL BREATHING PATTERN - Cardiovascular Exam Cardiovascular Exam: REGULAR RHYTHM, +S1, +S2 - GI/Abdominal Exam GI & Abdominal Exam: Soft, Normal Bowel Sounds - Extremities Exam Extremities Exam: absent: Calf Tenderness, Pedal Edema - Neurological Exam Neurological Exam: Alert, Awake, CN II-XII Intact, Normal Gait, Oriented x3, Reflexes Normal - Psychiatric Exam Psychiatric exam: Normal Mood - Skin Skin Exam: Warm Assessment and Plan (1) Flu syndrome Assessment & Plan: much improved. Mycoplasma IGM negative serology legionella antigen negative. CONTINUE tAMIFLU 75 MG TWICE A DAY TO COMPLETE 5 DAYS. CASE DISCUSSED WITH SPEEDER FRAME TENDER MS Dorene Smith Status: Acute (2) Bronchitis Assessment & Plan: BY MOUTH zITHROMAX 500MILLIGRAM ONCE A DAY X 5 DAYS. . pULMONARY TOILET AND STEROIDS PER PULMONARY Status: Acute (3) BRITTANEY (acute kidney injury) Assessment & Plan: IMPROVED STATUS. Status: Acute (4) Diabetes mellitus, insulin dependent (IDDM), uncontrolled Status: Acute (5) Neutropenia Assessment & Plan: IMPROVED. WORKUP PER hEMATOLOGY Status: Acute
[2017-10-26] MEDS ORDERED: Sodium Chloride 0.9% 1,000 ML IV ONE (23:01)
[2017-10-27] MEDS: Albuterol 0.083% Inhal Sol (2.5 mg/3 mL) UD IH SCH ×3 (01:41→13:18)
[2017-10-27] MEDS: Pantoprazole 40 mg EC Tab PO SCH (07:14)
[2017-10-27 08:45] VITALS: TEMP 97.2
[2017-10-27] MEDS: Insulin Detemir 100 units/ml Vial (Levemir) SC SCH (09:32)
[2017-10-27] MEDS: (Novolin R) Insulin Human Regular 100 units/ml vial SC SCH ×6 (09:33→17:21)
[2017-10-27] MEDS ORDERED: Fluticasone Nasal 50 mcg/Spray NAS SCH (10:00)
[2017-10-27 11:36] LABS: BASO % 0.1 % (0.0-2.0); HEMOGLOBIN 10.4 g/dL (11.0-16.0); LYMPH # 0.7 K/uL (1.0-4.3); LYMPH % 9.3 % (20.0-40.0); MEAN CELL VOLUME 87.8 fL (81.0-99.0); MEAN CORPUSCULAR HEMOGLOBIN 28.8 pg (27.0-31.0); MEAN CORPUSCULAR HGB CONC 32.8 g/dL (33.0-37.0); MEAN PLATELET VOLUME 11.2 fL (7.2-11.7); MONO # 0.3 K/uL (0.0-0.8); MONO % 4.4 % (0.0-10.0); NEUT # 6.3 K/uL (1.8-7.0); NEUT % 86.2 % (50.0-75.0); NRBC % 0.3 % (0.0-2.0); RBC 3.61 Mil/uL (3.80-5.20); RED CELL DISTRIBUTION WIDTH 14.5 % (11.5-14.5); WHITE BLOOD COUNT 7.3 K/uL (4.8-10.8)
[2017-10-27 11:38] LABS: PLATELET COUNT 150 K/uL (130-400)
[2017-10-27] MEDS: Calcium-Vit D 250 mg-125 Units Tab UD PO SCH (11:48)
[2017-10-27 11:54] LABS: BANDS 1 % (0-2); LYMPHOCYTE 5 % (20-40); MONOCYTE 2 % (0-10); NEUTROPHIL 92 % (50-75); PLATELET ESTIMATE NORMAL (NORMAL); TOTAL CELLS COUNTED 100
[2017-10-27 11:55] LABS: HYPOCHROMIC SLIGHT
[2017-10-27 11:57] LABS: ALB/GLOB RATIO 1.1 (1.0-2.1); ALBUMIN 3.5 g/dL (3.5-5.0); ALT/SGPT 24 U/L (9-52); AST/SGOT 25 U/L (14-36); BLOOD UREA NITROGEN 34 mg/dL (7-17); CALCIUM 7.2 mg/dl (8.6-10.4); GFR AFRICAN-AMERICAN > 60; GFR NON-AFRICAN AMERICAN 51
[2017-10-27] MEDS: Nystatin 100,000 Units/ml Oral Susp 5 ml UD PO SCH ×2 (14:32→17:20)
--- NOTE | 2017-10-27 15:43 | CP.PCM.PN ---
Subjective - Date & Time of Evaluation Date of Evaluation: 10/27/17 Time of Evaluation: 14:20 - Subjective Subjective: No complaints. Objective - Vital Signs/Intake and Output Vital Signs (last 24 hours): Temp Pulse Resp BP Pulse Ox 97.2 F L 81 18 138/74 97 10/27/17 07:50 10/27/17 07:50 10/27/17 07:50 10/27/17 07:50 10/27/17 07:50 Intake and Output: 10/27/17 10/27/17 06:59 18:59 Intake Total 280 Balance 280 - Medications Medications: Current Medications Albuterol Sulfate (Albuterol 0.083% Inhal Carole (2.5 Mg/3 Ml) Ud) 2.5 mg IH RQ6 [facility] Last Admin: 10/27/17 13:18 Dose: 2.5 mg Amlodipine Besylate (Norvasc) 5 mg PO DAILY [facility] Last Admin: 10/27/17 11:48 Dose: 5 mg Azithromycin (Zithromax) 500 mg PO DAILY [facility] Last Admin: 10/27/17 11:49 Dose: 500 mg Calcium/Vitamin D (Oscal-D 250 Mg-125 Units Tab) 1 tab PO DAILY [facility] Last Admin: 10/27/17 11:48 Dose: 1 tab Fluticasone Propionate (Flonase) 2 spr SUSU DAILY [facility] Last Admin: 10/27/17 11:46 Dose: Not Given Guaifenesin (Robitussin) 100 mg PO BID PRN PRN Reason: Cough Insulin Detemir (Levemir) 30 unit SC Q12H [facility] Last Admin: 10/27/17 09:32 Dose: 30 unit Insulin Human Regular (Novolin R) 0 unit SC ACHS [facility] PRN Reason: Protocol Last Admin: 10/27/17 13:37 Dose: 3 unit Insulin Human Regular (Novolin R) 20 unit SC TID [facility] Last Admin: 10/27/17 14:31 Dose: 20 unit Levothyroxine Sodium (Levothroid) 137 mcg PO DAILY@0630 [facility] Last Admin: 10/27/17 06:53 Dose: 137 mcg Montelukast Sodium (Singulair) 10 mg PO HS [facility] Last Admin: 10/26/17 21:42 Dose: 10 mg Nystatin (Nystatin Oral Susp) 5 ml PO QID [facility] Last Admin: 10/27/17 14:32 Dose: 5 ml Oseltamivir Phosphate (Tamiflu Cap) 75 mg PO BID [facility] Stop: 10/29/17 13:45 Last Admin: 10/27/17 11:48 Dose: 75 mg Pantoprazole Sodium (Protonix Ec Tab) 40 mg PO ACB [facility] Last Admin: 10/27/17 07:14 Dose: 40 mg Prednisone (Prednisone Tab) 20 mg PO DAILY [facility] Last Admin: 10/27/17 11:49 Dose: 20 mg Pregabalin (Lyrica) 100 mg PO TID [facility] Last Admin: 10/27/17 14:31 Dose: 100 mg Rosuvastatin Calcium (Crestor) 5 mg PO HS [facility] Last Admin: 10/26/17 21:42 Dose: 5 mg - Labs Labs: 10/27/17 10:50 10/27/17 10:50 - Head Exam Head Exam: ATRAUMATIC - Eye Exam Eye Exam: Normal appearance - ENT Exam ENT Exam: Mucous Membranes Dry - Respiratory Exam Respiratory Exam: NORMAL BREATHING PATTERN - Cardiovascular Exam Cardiovascular Exam: +S1, +S2 - GI/Abdominal Exam GI & Abdominal Exam: Normal Bowel Sounds Assessment and Plan (1) Pancytopenia Assessment & Plan: counts improving likely leflunomide causing mild bone marrow suppression as counts improving while holding Status: Acute
[2017-10-27 16:31] VITALS: BP 139/72; PULSE 75; RESP 20; O2SAT 96
--- NOTE | 2017-10-27 16:38 | CP.PCM.PN ---
Subjective - Date & Time of Evaluation Date of Evaluation: 10/27/17 Time of Evaluation: 16:38 - Subjective Subjective: PATIENT WAS ADMITTED FOR BRONCHITIS AND BRITTANEY; PATIENT IS AAOX3, DENIES SOB, CHEST PAIN; NO SIGN OF DISTRESS NOTED Objective - Vital Signs/Intake and Output Vital Signs (last 24 hours): Temp Pulse Resp BP Pulse Ox 97.2 F L 75 20 139/72 96 10/27/17 16:30 10/27/17 16:30 10/27/17 16:30 10/27/17 16:30 10/27/17 16:30 Intake and Output: 10/27/17 10/27/17 06:59 18:59 Intake Total 280 Balance 280 - Medications Medications: Current Medications Albuterol Sulfate (Albuterol 0.083% Inhal Carole (2.5 Mg/3 Ml) Ud) 2.5 mg IH RQ6 [facility] Last Admin: 10/27/17 13:18 Dose: 2.5 mg Amlodipine Besylate (Norvasc) 5 mg PO DAILY [facility] Last Admin: 10/27/17 11:48 Dose: 5 mg Azithromycin (Zithromax) 500 mg PO DAILY [facility] Last Admin: 10/27/17 11:49 Dose: 500 mg Calcium/Vitamin D (Oscal-D 250 Mg-125 Units Tab) 1 tab PO DAILY [facility] Last Admin: 10/27/17 11:48 Dose: 1 tab Fluticasone Propionate (Flonase) 2 spr SUSU DAILY [facility] Last Admin: 10/27/17 11:46 Dose: Not Given Guaifenesin (Robitussin) 100 mg PO BID PRN PRN Reason: Cough Insulin Detemir (Levemir) 30 unit SC Q12H [facility] Last Admin: 10/27/17 09:32 Dose: 30 unit Insulin Human Regular (Novolin R) 0 unit SC ACHS [facility] PRN Reason: Protocol Last Admin: 10/27/17 13:37 Dose: 3 unit Insulin Human Regular (Novolin R) 20 unit SC TID [facility] Last Admin: 10/27/17 14:31 Dose: 20 unit Levothyroxine Sodium (Levothroid) 137 mcg PO DAILY@0630 [facility] Last Admin: 10/27/17 06:53 Dose: 137 mcg Montelukast Sodium (Singulair) 10 mg PO HS [facility] Last Admin: 01/10/18 21:42 Dose: 10 mg Nystatin (Nystatin Oral Susp) 5 ml PO QID [facility] Last Admin: 10/27/17 14:32 Dose: 5 ml Oseltamivir Phosphate (Tamiflu Cap) 75 mg PO BID [facility] Stop: 10/29/17 13:45 Last Admin: 10/27/17 11:48 Dose: 75 mg Pantoprazole Sodium (Protonix Ec Tab) 40 mg PO ACB [facility] Last Admin: 10/27/17 07:14 Dose: 40 mg Prednisone (Prednisone Tab) 20 mg PO DAILY [facility] Last Admin: 10/27/17 11:49 Dose: 20 mg Pregabalin (Lyrica) 100 mg PO TID [facility] Last Admin: 10/27/17 14:31 Dose: 100 mg Rosuvastatin Calcium (Crestor) 5 mg PO HS [facility] Last Admin: 10/26/17 21:42 Dose: 5 mg - Labs Labs: 10/27/17 10:50 10/27/17 10:50 Assessment and Plan - Assessment and Plan (Free Text) Assessment: PATIENT SEEN AND EXAMINED AT THE BEDSIDE LUNG SOUND CLEAR; SUGAR IS SLIGHT ELEVATED BUT PATIENT IS ON MEDROL PACK DISCUSS WITH DR WADSWORTH WHO AGREE AND CLEAR PATIENT TO DC FOLLOW UP WITH DR WADSWORTH IN 1-2 WEEKS AT HER OFFICE ---CALL HER OFFICE FOR APPOINTMENT FOLLOW UP WITH CHANDLER IN HIS OFFICE IN A WEEK ---CALL HIS OFFICE FOR APPOINMENT FOLLOW UP WITH DR QUINTEROS IN 1-2 WEEK CALL HER OFFICE FOR APPOINTMENT CONTINUE ALL YOR HOME MEDICATIONS PRESCRIBED NEW PRESCRIPTION GIVEN TAMIFLU 75 MG BY MOUTH FOR 3 MORE DAYS ROBUTUSSIN DM 5 ML BY MOUTH ONCE AT HS FOR COUGH AZITHROMYCIN 500 MG BY MOUTH ONCE DAILY NYSTATIN 5 ML 4 TIMES A DAY BY MOUTH VENTOLIN HFA 1 PUFF EVERY 6 HOURS NEEDED FOR SHORTNESS OF BREATH MEDROL PACK TAPER DOSE INSTRUCTED ON THE LABEL SINGULAIR 10 MG BY MOUTH AT NIGHT ONCE A DAY ACTIVITY TOLERATED CALL DR WADSWORTH OR GO TO THE EMERGENCY ROOM IF SYMPTOMS RETURN OR WORSENING DISCUSS WITH PATIENT WHO AGREE AND VERBALIZED UNDERSTATING
--- NOTE | 2017-10-27 18:18 | CP.PCM.PN ---
Subjective - Date & Time of Evaluation Date of Evaluation: 10/27/17 Time of Evaluation: 18:17 - Subjective Subjective: afebrile, Feeling much better. Denies shortness of breath. Occasional cough. Labs reviewed. Pancytopenia improved on steroids. case discussed with staff/ director of culture Guicho smith PO ANTIBIOTICS/ mEDROL Tomy PER PULMONARY. Objective - Vital Signs/Intake and Output Vital Signs (last 24 hours): Temp Pulse Resp BP Pulse Ox 97.2 F L 75 20 139/72 96 10/27/17 16:30 10/27/17 16:30 10/27/17 16:30 10/27/17 16:30 10/27/17 16:30 Intake and Output: 10/27/17 10/27/17 06:59 18:59 Intake Total 280 790 Balance 280 790 - Medications Medications: Current Medications Albuterol Sulfate (Albuterol 0.083% Inhal Carole (2.5 Mg/3 Ml) Ud) 2.5 mg IH RQ6 [facility] Last Admin: 10/27/17 13:18 Dose: 2.5 mg Amlodipine Besylate (Norvasc) 5 mg PO DAILY [facility] Last Admin: 10/27/17 11:48 Dose: 5 mg Azithromycin (Zithromax) 500 mg PO DAILY [facility] Last Admin: 10/27/17 11:49 Dose: 500 mg Calcium/Vitamin D (Oscal-D 250 Mg-125 Units Tab) 1 tab PO DAILY [facility] Last Admin: 10/27/17 11:48 Dose: 1 tab Fluticasone Propionate (Flonase) 2 spr SUUS DAILY [facility] Last Admin: 10/27/17 11:46 Dose: Not Given Guaifenesin (Robitussin) 100 mg PO BID PRN PRN Reason: Cough Insulin Detemir (Levemir) 30 unit SC Q12H [facility] Last Admin: 10/27/17 09:32 Dose: 30 unit Insulin Human Regular (Novolin R) 0 unit SC ACHS [facility] PRN Reason: Protocol Last Admin: 10/27/17 17:21 Dose: 3 unit Insulin Human Regular (Novolin R) 20 unit SC TID [facility] Last Admin: 10/27/17 17:21 Dose: 20 unit Levothyroxine Sodium (Levothroid) 137 mcg PO DAILY@0630 [facility] Last Admin: 10/27/17 06:53 Dose: 137 mcg Montelukast Sodium (Singulair) 10 mg PO HS [facility] Last Admin: 10/26/17 21:42 Dose: 10 mg Nystatin (Nystatin Oral Susp) 5 ml PO QID [facility] Last Admin: 10/27/17 17:20 Dose: 5 ml Oseltamivir Phosphate (Tamiflu Cap) 75 mg PO BID [facility] Stop: 10/29/17 13:45 Last Admin: 10/27/17 17:21 Dose: 75 mg Pantoprazole Sodium (Protonix Ec Tab) 40 mg PO ACB [facility] Last Admin: 10/27/17 07:14 Dose: 40 mg Prednisone (Prednisone Tab) 20 mg PO DAILY [facility] Last Admin: 10/27/17 11:49 Dose: 20 mg Pregabalin (Lyrica) 100 mg PO TID [facility] Last Admin: 10/27/17 17:20 Dose: 100 mg Rosuvastatin Calcium (Crestor) 5 mg PO [facility] Last Admin: 10/26/17 21:42 Dose: 5 mg - Labs Labs: 10/27/17 10:50 10/27/17 10:50 - Constitutional Appears: No Acute Distress - Head Exam Head Exam: NORMAL INSPECTION - Eye Exam Eye Exam: EOMI, PERRL - ENT Exam ENT Exam: Normal Oropharynx - Neck Exam Neck Exam: Normal Inspection - Respiratory Exam Respiratory Exam: Clear to Ausculation Bilateral - Cardiovascular Exam Cardiovascular Exam: REGULAR RHYTHM, +S1, +S2 - GI/Abdominal Exam GI & Abdominal Exam: Soft, Normal Bowel Sounds - Extremities Exam Extremities Exam: absent: Calf Tenderness, Pedal Edema - Neurological Exam Neurological Exam: Awake, CN II-XII Intact, Oriented x3, Reflexes Normal - Psychiatric Exam Psychiatric exam: Normal Mood - Skin Skin Exam: Normal Color, Warm Assessment and Plan (1) Flu syndrome Assessment & Plan: DISCUSSED Status: Acute (2) Bronchitis Assessment & Plan: MUCH IMPROVED. PO zITHROMAX 500 MG ONCE A DAY FOR 5 DAYS. Status: Acute (3) BRITTANEY (acute kidney injury) Assessment & Plan: IMPROVED. Status: Acute (4) Diabetes mellitus, insulin dependent (IDDM), uncontrolled Status: Acute (5) Neutropenia Assessment & Plan: IMPROVED. lABS REVIEWED. Status: Acute
== END 2017-10-27 18:35 | disposition home or self-care (01) | DRG 809 ==
LOC: C.ER 08:04 → C.9E 10:14 → C.5S 11:54
PROVIDERS: ADMIT Internal Medicine; ATTEND Internal Medicine
DX: D61.818 Other pancytopenia (principal); J44.0 Chronic obstructive pulmonary disease with (acute) lower respiratory infection; N17.9 Acute kidney failure, unspecified; E10.22 Type 1 diabetes mellitus with diabetic chronic kidney disease; E10.40 Type 1 diabetes mellitus with diabetic neuropathy, unspecified; E83.51 Hypocalcemia; J45.901 Unspecified asthma with (acute) exacerbation; E10.65 Type 1 diabetes mellitus with hyperglycemia; J20.9 Acute bronchitis, unspecified; R06.81 Apnea, not elsewhere classified; F32.9 Major depressive disorder, single episode, unspecified; E78.00 Pure hypercholesterolemia, unspecified; M06.9 Rheumatoid arthritis, unspecified; Z95.5 Presence of coronary angioplasty implant and graft; D64.9 Anemia, unspecified; F41.9 Anxiety disorder, unspecified; B34.9 Viral infection, unspecified; Z88.0 Allergy status to penicillin; I25.10 Atherosclerotic heart disease of native coronary artery without angina pectoris; Z89.422 Acquired absence of other left toe(s); Z89.421 Acquired absence of other right toe(s); Z85.850 Personal history of malignant neoplasm of thyroid; E66.9 Obesity, unspecified; Z68.31 Body mass index [BMI] 31.0-31.9, adult; E89.0 Postprocedural hypothyroidism; Y83.9 Surgical procedure, unspecified as the cause of abnormal reaction of the patient, or of later complication, without mention of misadventure at the time of the procedure; I12.9 Hypertensive chronic kidney disease with stage 1 through stage 4 chronic kidney disease, or unspecified chronic kidney disease; N18.9 Chronic kidney disease, unspecified

== ENCOUNTER 2018-02-04 08:07 | Emergency (ER) | payer MEDICARE ==
[2018-02-04 08:59] LABS: SQUAMOUS EPITHIAL 1 /hpf (0-5); URINE BILIRUBIN NEGATIVE (NEGATIVE); URINE BLOOD NEGATIVE (NEGATIVE); URINE CLARITY Clear (Clear); URINE COLOR Colorless (YELLOW); URINE GLUCOSE (UA) 3+ mg/dL (Normal); URINE LEUKOCYTE ESTERASE NEG Leu/uL (Negative); URINE PROTEIN 1+ mg/dL (NEGATIVE); URINE UROBILINOGEN NORMAL mg/dL (0.2-1.0)
[2018-02-04] MEDS ORDERED: Albuterol 0.083% Inhal Sol (2.5 mg/3 mL) UD INH STA (09:03)
[2018-02-04] MEDS ORDERED: Lidocaine 1% w Epi 1:100,000 Inj INJ ONE (09:06)
[2018-02-04] MEDS ORDERED: Lidocaine 1% w Epi 1:100,000 Inj ONE (09:16)
[2018-02-04] MEDS ORDERED: Albuterol 0.083% Inhal Sol (2.5 mg/3 mL) UD ONE (09:18)
[2018-02-04 09:44] LABS: BASO % 0.4 % (0.0-2.0); EOS % 0.1 % (0.0-4.0); HEMOGLOBIN 11.5 g/dL (11.0-16.0); LYMPH # 0.7 K/uL (1.0-4.3); LYMPH % 8.6 % (20.0-40.0); MEAN CELL VOLUME 87.2 fL (81.0-99.0); MEAN CORPUSCULAR HEMOGLOBIN 29.1 pg (27.0-31.0); MEAN CORPUSCULAR HGB CONC 33.4 g/dL (33.0-37.0); MEAN PLATELET VOLUME 10.4 fL (7.2-11.7); MONO # 0.2 K/uL (0.0-0.8); MONO % 1.9 % (0.0-10.0); NEUT # 7.2 K/uL (1.8-7.0); NRBC % 0.1 % (0.0-2.0); PLATELET COUNT 184 K/uL (130-400); RBC 3.96 Mil/uL (3.80-5.20); RED CELL DISTRIBUTION WIDTH 13.9 % (11.5-14.5)
[2018-02-04 10:13] LABS: CK-MB 1.65 ng/mL (0.0-3.38)
[2018-02-04 10:16] LABS: ALB/GLOB RATIO 1.2 (1.0-2.1); ALBUMIN 4.2 g/dL (3.5-5.0); ALT/SGPT 21 U/L (9-52); AST/SGOT 29 U/L (14-36); BLOOD UREA NITROGEN 19 mg/dL (7-17); CALCIUM 9.6 mg/dl (8.6-10.4); GFR AFRICAN-AMERICAN > 60; GFR NON-AFRICAN AMERICAN 51
[2018-02-04] MEDS ORDERED: Sodium Chloride 0.9% 1,000 ML IV ONE ×2 (10:17→11:01)
[2018-02-04] MEDS ORDERED: (Novolin R) Insulin Human Regular 100 units/ml vial IV ONE ×2 (10:17→12:27)
[2018-02-04] MEDS ORDERED: Sodium Chloride 0.9% 1,000 ML ONE (10:26)
[2018-02-04] MEDS ORDERED: (Novolin R) Insulin Human Regular 100 units/ml vial ONE ×2 (10:26→13:15)
[2018-02-04 11:18] LABS: ANISOCYTOSIS SLIGHT; BANDS 2 % (0-2); HYPOCHROMIC SLIGHT; LYMPHOCYTE 8 % (20-40); MONOCYTE 5 % (0-10); NEUTROPHIL 85 % (50-75); PLATELET ESTIMATE NORMAL (NORMAL); POLYCHROMIC SLIGHT; TOTAL CELLS COUNTED 100
[2018-02-04 11:19] LABS: LARGE PLATELETS PRESENT
[2018-02-04] MEDS ORDERED: Albuterol-Ipratrop 3 mg / 0.5 (3 ml) UD INH STA (12:22)
--- NOTE | 2018-02-04 12:27 | C.PDOC ---
History Of Present Illness 57-year-old female, presents to the emergency department with complaints of nasal congestion and chest congestion for two days. States that it feels like her usual asthma exacerbation. Patient also notes associated diarrhea ( soft, not watery), and swelling to labia for two weeks. Patient reports she has experienced the labial swelling, about ten years ago, which "popped on its own. " States she shaved two days ago. Denies chest pain, shortness of breath or fever. Denies vaginal discharge or bleeding. Denies abdominal pain n/v. Patient also notes she did not take her chronic medication today. Time Seen by Provider: 02/04/18 08:50 Chief Complaint (Nursing): Abdominal Pain History Per: Patient History/Exam Limitations: no limitations Onset/Duration Of Symptoms: Days Current Symptoms Are (Timing): Still Present Severity: Moderate Past Medical History Reviewed: Historical Data, Nursing Documentation, Vital Signs Vital Signs: Last Vital Signs Temp 97.9 F 02/04/18 13:30 Pulse 78 02/04/18 13:30 Resp 18 02/04/18 13:30 BP 174/80 H 02/04/18 13:30 Pulse Ox 98 02/04/18 18:03 - Medical History PMH: Anemia, Anxiety, Arthritis, Asthma, COPD, Depression, Diabetes (type I and II, associated diabetic neuropathy), Gastritis, HTN, Hypercholesterolemia, Hyperlipidemia, Hypothyroidism, Malignancy (Thyroid), Rheumatoid Arthritis, Sleep Apnea Surgical History: Coronary Stent - [facility] Procedures AMPUTATION THROUGH FOOT (05/13/15) ANGIOPLASTY OF OTHER NON-CORONARY VESSEL(S) (03/25/15) ATTACH PEDICLE GRAFT NEC (05/13/15) CONTRAST ARTERIOGRAM-LEG (03/25/15) DETACHMENT AT LEFT FOOT, PARTIAL 1ST RAY, OPEN APPROACH (11/04/15) DETACHMENT AT LEFT FOOT, PARTIAL 2ND RAY, OPEN APPROACH (11/04/15) DETACHMENT AT LEFT FOOT, PARTIAL 3RD RAY, OPEN APPROACH (11/04/15) DETACHMENT AT LEFT FOOT, PARTIAL 4TH RAY, OPEN APPROACH (11/04/15) DETACHMENT AT LEFT FOOT, PARTIAL 5TH RAY, OPEN APPROACH (11/04/15) EXCISION OF LEFT FOOT SKIN, EXTERNAL APPROACH (07/04/15) EXCISION OF R FOOT SUBCU/FASCIA, OPEN APPROACH (07/04/15) EXERCISE TRMT MUSCULOSK LOW BACK/LE W ASSIST EQUIP (10/28/15) FLUOROSCOPY OF AORTA AND BILATERAL LOWER EXTREMITY ARTERIES (07/04/15) FLUOROSCOPY OF SUP VENA CAVA USING OTH CONTRAST, GUIDANCE (09/28/15) FLUOROSCOPY OF SUPERIOR VENA CAVA, GUIDANCE (11/04/15) GAIT TRAINING/AMBULAT TREATMENT USING ASSIST EQUIPMENT (10/28/15) GROOMING/PERSONAL HYGIENE TREATMENT USING ASSIST EQUIPMENT (10/28/15) INJECT/INFUSE NEC (07/01/15) INSERTION OF INFUSION DEV INTO SUP VENA CAVA, PERC APPROACH (11/04/15) INTRODUCE OTH ANTI-INFECT IN CENTRAL VEIN, PERC (11/04/15) INTRODUCE REGIONAL ANESTH IN PERIPH NRV, PLEXI, PERC (07/04/15) INTRODUCTION OF SERUM/TOX/VACCINE INTO MUSCLE, PERC APPROACH (09/28/15) OCCUPATIONAL THERAPY (05/20/15) PACKED CELL TRANSFUSION (05/13/15) PHYSICAL THERAPY NEC (05/20/15) PROCEDURE ON SINGLE VESSEL (03/25/15) REPLACE R FOOT SKIN W NONAUT SUB, FULL THICK, POST ANESTHESIA ROOM NURSE (07/04/15) TOE AMPUTATION (03/25/15) TRANSFUSE NONAUT RED BLOOD CELLS IN PERIPH VEIN, PERC (09/28/15) Family History: States: No Known Family Hx - Social History Hx Tobacco Use: No Hx Alcohol Use: No Hx Substance Use: No - Immunization History Hx Tetanus Toxoid Vaccination: No Hx Influenza Vaccination: Yes (08/07/17) Hx Pneumococcal Vaccination: No (2011) Review Of Systems Constitutional: Negative for: Fever ENT: Positive for: Nose Congestion Cardiovascular: Negative for: Chest Pain Respiratory: Negative for: Shortness of Breath Gastrointestinal: Positive for: Diarrhea. Negative for: Vomiting, Abdominal Pain Genitourinary: Positive for: Other (swelling to labia ). Negative for: Dysuria , Hematuria Musculoskeletal: Negative for: Back Pain Physical Exam - Physical Exam Appears: Non-toxic, No Acute Distress Skin: Warm, Dry, No Rash Head: Normacephalic Eye(s): bilateral: PERRL, EOMI Ear(s): Bilateral: Normal Nose: Normal Oral Mucosa: Moist Lips: Normal Appearing Throat: Normal, No Erythema, No Exudate Neck: Normal ROM, Supple Chest: Symmetrical Cardiovascular: Rhythm Regular Respiratory: No Accessory Muscle Use, Wheezing Gastrointestinal/Abdominal: Soft, No Tenderness Pelvic: Other (Left superior labia: 2cm area of induration with central purulent discharge and mild erythema.) Extremity: Normal ROM Extremity: Bilateral: Atraumatic Neurological/Psych: Oriented x3, Normal Speech ED Course And Treatment - Laboratory Results Result Diagrams: 02/04/18 09:40 02/04/18 09:40 O2 Sat by Pulse Oximetry: 98 (RA) Pulse Ox Interpretation: Normal Progress Note: Duonebs and solumedrol ordered. On re-evaluation, patient feels better. Lungs CTA bilaterally on re-evaluation. Offered admission and concern for hyperglycemia due to steroids and antibiotics, but patient reports she has a glucometer at home and will check her blood sugar regularly. Patient instructed to return immediately for any new or worsening symptoms. CAse discussed with Dr Sweeney, agreed upon plan and treatment. - Incision & Drainage Of Abscess Anesthesia: Lidocaine 1%, With Epi Prep Used: Sterile Water, Betadine Procedure: Incised W/Scalpel Blade#: (11), Drained Pus, Irrigated Cavity W/ Saline, Probed To Break Up Loculations, Cultures Obtained And Sent To Lab Disposition - Disposition Disposition: HOME/ ROUTINE Disposition Time: 14:16 Condition: STABLE Additional Instructions: Check your sugar regularly. If your sugar is above usual, return to ER right away. Apply warm compresses to the area and wound check in 2 days. Follow up with your PMD in 1-2 days. Return to ER if symptoms persist or worsen. Prescriptions: Clindamycin [Cleocin] 300 mg PO Q6 #28 cap predniSONE [Prednisone] 40 mg PO DAILY #8 tab Instructions: Skin Abscess Forms: [facility] (Andorran) - Clinical Impression Clinical Impression: Hyperglycemia, Abscess of labia, Asthma exacerbation - Scribe Statement The provider has reviewed the documentation as recorded by the Scribe (Raman Brown) All medical record entries made by the Scribe were at my direction and personally dictated by me. I have reviewed the chart and agree that the record accurately reflects my personal performance of the history, physical exam, medical decision making, and the department course for this patient. I have also personally directed, reviewed, and agree with the discharge instructions and disposition.
[2018-02-04 13:36] VITALS: BP 174/80; PULSE 78; RESP 18; TEMP 97.9
[2018-02-04] MEDS ORDERED: Albuterol-Ipratrop 3 mg / 0.5 (3 ml) UD ONE (13:46)
[2018-02-04] MEDS ORDERED: Tmp-Smz 800 mg-160 mg DS Tab PO STA (14:13)
[2018-02-04 14:19] VITALS: O2SAT 98
[2018-02-04] MEDS ORDERED: Tmp-Smz 800 mg-160 mg DS Tab ONE (14:23)
--- NOTE | 2018-02-07 22:12 | CARD ---
APPROVED REPORT EKG Measurement Heart [id number] KS [id number] [id number] <Conclusion> Normal sinus rhythm Left axis deviation Poor R wave progression, cannot exclude lateral infarct Voltage criteria for left ventricular hypertrophy Abnormal ECG
== END 2018-02-04 14:26 | disposition home or self-care (01) ==
LOC: C.ER 08:07
DX: J45.901 Unspecified asthma with (acute) exacerbation (principal); N76.4 Abscess of vulva; E11.65 Type 2 diabetes mellitus with hyperglycemia; E03.9 Hypothyroidism, unspecified; E78.00 Pure hypercholesterolemia, unspecified; I10 Essential (primary) hypertension; M06.9 Rheumatoid arthritis, unspecified; E78.5 Hyperlipidemia, unspecified
CPT/HCPCS: 56405; 80053; 81001; 82550; 82553; 82948; 85025; 87070; 87181; 93005; 94150; 94640; 96361; 96374; 96375; 96376; 99285; J2930; J7040

== ENCOUNTER 2018-04-24 09:27 | Emergency (ER) | payer MEDICARE ==
[2018-04-24 09:33] VITALS: BMI 33.5
[2018-04-24] MEDS: Albuterol-Ipratrop 3 mg / 0.5 (3 ml) UD IH SCH ×3 (10:00→10:37)
[2018-04-24] MEDS ORDERED: Magnesium Sulfate 1 gm in D5W 1 GM/100 ML BAG IV ONE (10:07)
--- NOTE | 2018-04-24 10:08 | C.PDOC ---
History Of Present Illness 57-YEAR-OLD FEMALE, PRESENTS TO THE EMERGENCY DEPARTMENT WITH COMPLAINTS OF GENERALIZED SWELLING ONGOING X4 DAYS. PT S/P VENOUS STUDY FOUR DAYS AGO, RECEIVED CONTRAST. SHE IS HAVING GENERALIZED SWELL SINCE. ABLE TO EAT AND DRINK WITHOUT DIFF, SHE HAS A HX ASTHMA, CO EXACERBATION, WHICH WAS PRESENT PRIOR TO TEST. PS SHE WAS PREVIOUSLY ON LISINOPRIL WITH DIURETIC BUT MED STOPPED BY DR. ROSS RECENTLY. ECHO REPORT FROM FEBRUARY 2018 REVIEWED. Time Seen by Provider: 04/24/18 09:40 Chief Complaint (Nursing): Shortness Of Breath History Per: Patient History/Exam Limitations: no limitations Current Symptoms Are (Timing): Still Present Past Medical History Reviewed: Historical Data, Nursing Documentation, Vital Signs Vital Signs: Last Vital Signs Temp 97.5 F L 04/24/18 12:25 Pulse 86 04/24/18 12:25 Resp 20 04/24/18 12:25 BP 140/83 04/24/18 12:25 Pulse Ox 98 04/24/18 13:27 - Medical History PMH: Anemia, Anxiety, Arthritis, Asthma, COPD, Depression, Diabetes (type I and II, associated diabetic neuropathy), Gastritis, HTN, Hypercholesterolemia, Hyperlipidemia, Hypothyroidism, Malignancy (Thyroid), Rheumatoid Arthritis, Sleep Apnea Surgical History: Coronary Stent - [facility] Procedures AMPUTATION THROUGH FOOT (05/13/15) ANGIOPLASTY OF OTHER NON-CORONARY VESSEL(S) (03/25/15) ATTACH PEDICLE GRAFT NEC (05/13/15) CONTRAST ARTERIOGRAM-LEG (03/25/15) DETACHMENT AT LEFT FOOT, PARTIAL 1ST RAY, OPEN APPROACH (11/04/15) DETACHMENT AT LEFT FOOT, PARTIAL 2ND RAY, OPEN APPROACH (11/04/15) DETACHMENT AT LEFT FOOT, PARTIAL 3RD RAY, OPEN APPROACH (11/04/15) DETACHMENT AT LEFT FOOT, PARTIAL 4TH RAY, OPEN APPROACH (11/04/15) DETACHMENT AT LEFT FOOT, PARTIAL 5TH RAY, OPEN APPROACH (11/04/15) EXCISION OF LEFT FOOT SKIN, EXTERNAL APPROACH (07/04/15) EXCISION OF R FOOT SUBCU/FASCIA, OPEN APPROACH (07/04/15) EXERCISE TRMT MUSCULOSK LOW BACK/LE W ASSIST EQUIP (10/28/15) FLUOROSCOPY OF AORTA AND BILATERAL LOWER EXTREMITY ARTERIES (07/04/15) FLUOROSCOPY OF SUP VENA CAVA USING OTH CONTRAST, GUIDANCE (09/28/15) FLUOROSCOPY OF SUPERIOR VENA CAVA, GUIDANCE (11/04/15) GAIT TRAINING/AMBULAT TREATMENT USING ASSIST EQUIPMENT (10/28/15) GROOMING/PERSONAL HYGIENE TREATMENT USING ASSIST EQUIPMENT (10/28/15) INJECT/INFUSE NEC (07/01/15) INSERTION OF INFUSION DEV INTO SUP VENA CAVA, PERC APPROACH (11/04/15) INTRODUCE OTH ANTI-INFECT IN CENTRAL VEIN, PERC (11/04/15) INTRODUCE REGIONAL ANESTH IN PERIPH NRV, PLEXI, PERC (07/04/15) INTRODUCTION OF SERUM/TOX/VACCINE INTO MUSCLE, PERC APPROACH (09/28/15) OCCUPATIONAL THERAPY (05/20/15) PACKED CELL TRANSFUSION (05/13/15) PHYSICAL THERAPY NEC (05/20/15) PROCEDURE ON SINGLE VESSEL (03/25/15) REPLACE R FOOT SKIN W NONAUT SUB, FULL THICK, PROGRESS CLERK (07/04/15) TOE AMPUTATION (03/25/15) TRANSFUSE NONAUT RED BLOOD CELLS IN PERIPH VEIN, PERC (09/28/15) Family History: States: No Known Family Hx - Social History Hx Tobacco Use: No Hx Alcohol Use: No Hx Substance Use: No - Immunization History Hx Tetanus Toxoid Vaccination: No Hx Influenza Vaccination: Yes (08/07/17) Hx Pneumococcal Vaccination: No (2011) Review Of Systems Constitutional: Negative for: Fever, Chills Cardiovascular: Negative for: Chest Pain, Palpitations Respiratory: Negative for: Shortness of Breath Gastrointestinal: Negative for: Nausea, Vomiting Musculoskeletal: Negative for: Back Pain Neurological: Negative for: Weakness, Numbness, Headache, Dizziness Physical Exam - Physical Exam Appears: Non-toxic, No Acute Distress Skin: Normal Color, Warm, Dry, No Rash Head: Atraumatic, Normacephalic Eye(s): bilateral: PERRL, EOMI, Other (MILD ANGIOEDEMA) Nose: Normal Oral Mucosa: Moist Tongue: Normal Appearing, No Swelling Lips: Other (MILD ANGIOEDEMA) Throat: No Erythema, No Exudate, No Drooling, No Mass Neck: Normal ROM Chest: Symmetrical Cardiovascular: Rhythm Regular, No Murmur Respiratory: No Accessory Muscle Use, Wheezing (EXPIRATORY WHEEZING) Gastrointestinal/Abdominal: Soft, No Tenderness Extremity: Normal ROM, Pedal Edema (non pitting), No Deformity, No Swelling Neurological/Psych: Oriented x3, Normal Speech ED Course And Treatment - Laboratory Results Result Diagrams: 04/24/18 10:34 04/24/18 10:34 ECG: Interpreted By Me, Viewed By Me ECG Rhythm: Sinus Rhythm ECG Interpretation: No Acute Changes Rate From EC O2 Sat by Pulse Oximetry: 98 (RA) Pulse Ox Interpretation: Normal Progress - Re-Evaluation Re-evaluation Note: 04/24/18 11:55 SWELLING MARKEDLY IMPROVED COMPARED TO INITIAL, PS FEELS @ BASELINE. VSS APPEARS COMFORTABLE. PT WILL BE DC FOR OUTPATIENT F.U - Data Reviewed Data Reviewed: Lab, Diagnostic imaging, EKG Disposition Counseled Patient/Family Regarding: Studies Performed, Diagnosis, Need For Followup, Rx Given - Disposition Referrals: YOUR,PMD [Other] Disposition: HOME/ ROUTINE Disposition Time: 11:55 Condition: IMPROVED Prescriptions: predniSONE [Prednisone] 60 mg PO DAILY #12 tab Instructions: Angioedema (DC) Forms: [employer] (Slovenian) - Clinical Impression Clinical Impression: Asthma exacerbation, Angioedema - Scribe Statement The provider has reviewed the documentation as recorded by the Scribe (Raman Max) All medical record entries made by the Scribe were at my direction and personally dictated by me. I have reviewed the chart and agree that the record accurately reflects my personal performance of the history, physical exam, medical decision making, and the department course for this patient. I have also personally directed, reviewed, and agree with the discharge instructions and disposition.
[2018-04-24] MEDS ORDERED: MethylPREDNISolone 40 mg Vial ONE (10:16)
[2018-04-24] MEDS ORDERED: Magnesium Sulfate 1 gm in D5W 1 GM/100 ML BAG IVPB ONE (10:17)
[2018-04-24] MEDS ORDERED: Albuterol-Ipratrop 3 mg / 0.5 (3 ml) UD ONE (10:26)
[2018-04-24 10:45] LABS: BASO % 0.5 % (0.0-2.0); EOS # 0.3 K/uL (0.0-0.7); EOS % 7.4 % (0.0-4.0); HEMOGLOBIN 9.3 g/dL (11.0-16.0); LYMPH # 0.9 K/uL (1.0-4.3); LYMPH % 24.2 % (20.0-40.0); MEAN CELL VOLUME 89.9 fL (81.0-99.0); MEAN CORPUSCULAR HEMOGLOBIN 29.8 pg (27.0-31.0); MEAN CORPUSCULAR HGB CONC 33.1 g/dL (33.0-37.0); MONO # 0.5 K/uL (0.0-0.8); MONO % 12.4 % (0.0-10.0); NEUT # 2.2 K/uL (1.8-7.0); NEUT % 55.5 % (50.0-75.0); RBC 3.13 Mil/uL (3.80-5.20); RED CELL DISTRIBUTION WIDTH 14.4 % (11.5-14.5); WHITE BLOOD COUNT 3.9 K/uL (4.8-10.8)
[2018-04-24 10:55] LABS: CALCIUM 8.2 mg/dl (8.6-10.4)
--- NOTE | 2018-04-24 11:17 | RAD ---
PROCEDURE: CHEST RADIOGRAPH, 1 VIEW HISTORY: SOB COMPARISON: Chest radiograph dated 10/22/2017. FINDINGS: LUNGS: Clear. PLEURA: Mild elevation of the right hemidiaphragm No pneumothorax or pleural fluid seen. CARDIOVASCULAR: Cardiomediastinal silhouette stably prominent. OSSEOUS STRUCTURES: Unchanged. VISUALIZED UPPER ABDOMEN: Normal. OTHER FINDINGS: None. IMPRESSION: No active disease.
[2018-04-24 12:26] VITALS: BP 140/83; PULSE 86; RESP 20; TEMP 97.5; O2SAT 98
--- NOTE | 2018-04-24 19:51 | CARD ---
APPROVED REPORT EKG Measurement Heart [id number] ME 130P19 [id number] <Conclusion> Normal sinus rhythm Voltage criteria for left ventricular hypertrophy Abnormal ECG
== END 2018-04-24 12:26 | disposition home or self-care (01) ==
LOC: C.ER 09:27
DX: J45.901 Unspecified asthma with (acute) exacerbation (principal); T78.3XXA Angioneurotic edema, initial encounter; I10 Essential (primary) hypertension; E11.40 Type 2 diabetes mellitus with diabetic neuropathy, unspecified; E78.00 Pure hypercholesterolemia, unspecified

== ENCOUNTER 2018-04-24 17:43 | Emergency (ER) | payer MEDICARE ==
[2018-04-24 17:43] VITALS: BMI 33.5
[2018-04-24 18:06] VITALS: TEMP 99.3
[2018-04-24] MEDS ORDERED: Albuterol-Ipratrop 3 mg / 0.5 (3 ml) UD INH STA ×2 (18:47)
[2018-04-24 19:13] VITALS: PULSE 94
[2018-04-24 19:20] LABS: BASO % 0.2 % (0.0-2.0); EOS % 0.3 % (0.0-4.0); HEMOGLOBIN 9.3 g/dL (11.0-16.0); LYMPH # 0.3 K/uL (1.0-4.3); LYMPH % 7.2 % (20.0-40.0); MEAN CELL VOLUME 91.5 fL (81.0-99.0); MEAN CORPUSCULAR HEMOGLOBIN 29.3 pg (27.0-31.0); MEAN PLATELET VOLUME 11.3 fL (7.2-11.7); MONO % 0.5 % (0.0-10.0); NEUT # 3.8 K/uL (1.8-7.0); NEUT % 91.8 % (50.0-75.0); PLATELET COUNT 140 K/uL (130-400); RBC 3.17 Mil/uL (3.80-5.20); RED CELL DISTRIBUTION WIDTH 14.3 % (11.5-14.5); WHITE BLOOD COUNT 4.2 K/uL (4.8-10.8)
[2018-04-24 19:29] LABS: PROTHROMBIN TIME 11.3 SECONDS (9.7-12.2)
[2018-04-24] MEDS ORDERED: Albuterol-Ipratrop 3 mg / 0.5 (3 ml) UD ONE (19:42)
[2018-04-24 19:56] LABS: B-TYPE NATRIURETIC PEPTIDE 1480 pg/mL (0-900)
[2018-04-24 19:57] LABS: HYPOCHROMIC SLIGHT; LYMPHOCYTE 4 % (20-40); NEUTROPHIL 96 % (50-75); PLATELET ESTIMATE NORMAL (NORMAL); POLYCHROMIC SLIGHT; TOTAL CELLS COUNTED 100
[2018-04-24 19:58] LABS: ALB/GLOB RATIO 1.6 (1.0-2.1); ALT/SGPT 36 U/L (9-52); AST/SGOT 34 U/L (14-36); BLOOD UREA NITROGEN 31 mg/dL (7-17); CALCIUM 8.2 mg/dl (8.6-10.4); GFR AFRICAN-AMERICAN 33; GFR NON-AFRICAN AMERICAN 27
[2018-04-24] MEDS ORDERED: (Novolin R) Insulin Human Regular 100 units/ml vial IV STA (20:06)
--- NOTE | 2018-04-24 20:30 | C.PDOC ---
History Of Present Illness 57 y/o female with Hx of asthma presents to ED for complaints of chest pain and SOB. Patient was seen here earlier today and treated for asthma exacerbation. Denies any other physical complaints. Time Seen by Provider: 04/24/18 18:39 Chief Complaint (Nursing): Chest Pain History Per: Patient History/Exam Limitations: no limitations Onset/Duration Of Symptoms: Hrs Current Symptoms Are (Timing): Still Present Modifying Factors: None Exacerbating Factors: None Alleviating Factors: None Recent travel outside of the [place]: No Past Medical History Reviewed: Historical Data, Nursing Documentation, Vital Signs Vital Signs: Last Vital Signs Temp 99.3 F 04/24/18 17:48 Pulse 94 H 04/24/18 21:40 Resp 17 04/24/18 21:40 BP 158/76 H 04/24/18 21:40 Pulse Ox 96 04/25/18 00:20 - Medical History PMH: Anemia, Anxiety, Arthritis, Asthma, COPD, Depression, Diabetes (type I and II, associated diabetic neuropathy), Gastritis, HTN, Hypercholesterolemia, Hyperlipidemia, Hypothyroidism, Malignancy (Thyroid), Rheumatoid Arthritis, Sleep Apnea Surgical History: Coronary Stent - [facility] Procedures AMPUTATION THROUGH FOOT (05/13/15) ANGIOPLASTY OF OTHER NON-CORONARY VESSEL(S) (03/25/15) ATTACH PEDICLE GRAFT NEC (05/13/15) CONTRAST ARTERIOGRAM-LEG (03/25/15) DETACHMENT AT LEFT FOOT, PARTIAL 1ST RAY, OPEN APPROACH (11/04/15) DETACHMENT AT LEFT FOOT, PARTIAL 2ND RAY, OPEN APPROACH (11/04/15) DETACHMENT AT LEFT FOOT, PARTIAL 3RD RAY, OPEN APPROACH (11/04/15) DETACHMENT AT LEFT FOOT, PARTIAL 4TH RAY, OPEN APPROACH (11/04/15) DETACHMENT AT LEFT FOOT, PARTIAL 5TH RAY, OPEN APPROACH (11/04/15) EXCISION OF LEFT FOOT SKIN, EXTERNAL APPROACH (07/04/15) EXCISION OF R FOOT SUBCU/FASCIA, OPEN APPROACH (07/04/15) EXERCISE TRMT MUSCULOSK LOW BACK/LE W ASSIST EQUIP (10/28/15) FLUOROSCOPY OF AORTA AND BILATERAL LOWER EXTREMITY ARTERIES (07/04/15) FLUOROSCOPY OF SUP VENA CAVA USING OTH CONTRAST, GUIDANCE (09/28/15) FLUOROSCOPY OF SUPERIOR VENA CAVA, GUIDANCE (11/04/15) GAIT TRAINING/AMBULAT TREATMENT USING ASSIST EQUIPMENT (10/28/15) GROOMING/PERSONAL HYGIENE TREATMENT USING ASSIST EQUIPMENT (10/28/15) INJECT/INFUSE NEC (07/01/15) INSERTION OF INFUSION DEV INTO SUP VENA CAVA, PERC APPROACH (11/04/15) INTRODUCE OTH ANTI-INFECT IN CENTRAL VEIN, PERC (11/04/15) INTRODUCE REGIONAL ANESTH IN PERIPH NRV, PLEXI, PERC (07/04/15) INTRODUCTION OF SERUM/TOX/VACCINE INTO MUSCLE, PERC APPROACH (09/28/15) OCCUPATIONAL THERAPY (05/20/15) PACKED CELL TRANSFUSION (05/13/15) PHYSICAL THERAPY NEC (05/20/15) PROCEDURE ON SINGLE VESSEL (03/25/15) REPLACE R FOOT SKIN W NONAUT SUB, FULL THICK, POLISHER BRASS (07/04/15) TOE AMPUTATION (03/25/15) TRANSFUSE NONAUT RED BLOOD CELLS IN PERIPH VEIN, PERC (09/28/15) Family History: States: No Known Family Hx - Social History Hx Tobacco Use: No Hx Alcohol Use: No Hx Substance Use: No - Immunization History Hx Tetanus Toxoid Vaccination: No Hx Influenza Vaccination: Yes (08/07/17) Hx Pneumococcal Vaccination: No (2011) Review Of Systems Except As Marked, All Systems Reviewed And Found Negative. Cardiovascular: Positive for: Chest Pain Respiratory: Positive for: Shortness of Breath Physical Exam - Physical Exam Appears: Well, Non-toxic, No Acute Distress Skin: Normal Color, Warm, Dry Head: Atraumatic, Normacephalic Eye(s): bilateral: Normal Inspection, PERRL, EOMI Oral Mucosa: Moist Neck: Supple Chest: Symmetrical, No Tenderness Cardiovascular: Rhythm Regular Respiratory: No Decreased Breath Sounds, No Rales, No Rhonchi, Wheezing ( Bilateral ) Gastrointestinal/Abdominal: Soft, No Tenderness Extremity: Normal ROM, No Pedal Edema, No Deformity Extremity: Bilateral: Atraumatic, Normal Color And Temperature, Normal ROM Pulses: Left Dorsalis Pedis: Normal, Right Dorsalis Pedis: Normal Neurological/Psych: Oriented x3, Normal Speech (Speaking in full sentences ), Other (No focal deficits ) Gait: Steady ED Course And Treatment - Laboratory Results Result Diagrams: 04/24/18 19:17 04/24/18 19:17 O2 Sat by Pulse Oximetry: 96 (RA) Pulse Ox Interpretation: Normal Medical Decision Making Medical Decision Making: Administered Albuterol peak flow and Novolin R. Ordered BG, EKG, blood work, CXR, and urinalysis. noted bnp. lasix doesd. perisstent wheezing not improving outpt. admited michelle padron. shortly after admission pt requests dc home. signs ama. Disposition - Disposition Disposition: AGAINST MEDICAL ADVICE Disposition Time: 12:00 Condition: UNKNOWN - Clinical Impression Clinical Impression: Chest pain, Asthma, Congestive heart failure - Scribe Statement The provider has reviewed the documentation as recorded by the Scribdonny Samayoa All medical record entries made by the Scribe were at my direction and personally dictated by me. I have reviewed the chart and agree that the record accurately reflects my personal performance of the history, physical exam, medical decision making, and the department course for this patient. I have also personally directed, reviewed, and agree with the discharge instructions and disposition.
[2018-04-24] MEDS ORDERED: (Novolin 70/30) NPH/Regular 70/30 Units/ml 10 ml vial SC ONE (20:36)
[2018-04-24] MEDS ORDERED: (Novolin R) Insulin Human Regular 100 units/ml vial ONE (20:37)
[2018-04-24 20:55] LABS: VENOUS BLOOD GAS BASE EXCESS -10.6 mmol/L (0.0-2.0); VENOUS BLOOD GAS PCO2 28 mmHg (40-60); VENOUS BLOOD GAS PO2 58 mm/Hg (30-55); VENOUS BLOOD PH 7.31 (7.32-7.43)
[2018-04-24] MEDS ORDERED: (Novolin R) Insulin Human Regular 100 units/ml vial IV ONE (20:56)
[2018-04-24] MEDS ORDERED: Azithromycin 500 MG in Sodium Chloride 0.9% 250 ML IVPB STA (20:57)
[2018-04-24] MEDS ORDERED: cefTRIAXone IV 1 gm in Dextros 50 ML IVPB ONE (21:08)
[2018-04-24 21:23] LABS: SQUAMOUS EPITHIAL 1 /hpf (0-5); URINE BILIRUBIN NEGATIVE (NEGATIVE); URINE BLOOD NEGATIVE (NEGATIVE); URINE CLARITY Clear (Clear); URINE COLOR Straw (YELLOW); URINE GLUCOSE (UA) 3+ mg/dL (Normal); URINE LEUKOCYTE ESTERASE NEG Leu/uL (Negative); URINE PROTEIN NEGATIVE (NEGATIVE); URINE UROBILINOGEN NORMAL mg/dL (0.2-1.0)
[2018-04-24 21:41] VITALS: BP 158/76; RESP 17
[2018-04-24] MEDS ORDERED: Albuterol 0.083% Inhal Sol (2.5 mg/3 mL) UD IH PRN (23:31)
--- NOTE | 2018-04-24 23:36 | CP.PCM.HP ---
Present on Admission - Present on Admission Any Indicators Present on Admission: No Past Patient History - Infectious Disease Hx of Infectious Diseases: None - Past Medical History & Family History Past Medical History?: Yes - Past Social History Smoking Status: Never Smoked - CARDIAC Hx Hypercholesterolemia: Yes Hx Hypertension: Yes - PULMONARY Hx Asthma: Yes Hx Chronic Obstructive Pulmonary Disease (COPD): Yes Hx Sleep Apnea: Yes - NEUROLOGICAL Hx Neurological Disorder: Yes (Diabetic neuropathy) - HEENT Hx HEENT Problems: No - RENAL Hx Chronic Kidney Disease: No - ENDOCRINE/METABOLIC Hx Hypothyroidism: Yes - HEMATOLOGICAL/ONCOLOGICAL Hx Anemia: Yes - INTEGUMENTARY Hx Dermatological Problems: Yes Other/Comment: Hx BLE TMA incisions 2 neuromas in healing - MUSCULOSKELETAL/RHEUMATOLOGICAL Hx Arthritis: Yes Hx Rheumatoid Arthritis: Yes - GASTROINTESTINAL Hx Gastritis: Yes - GENITOURINARY/GYNECOLOGICAL Hx Genitourinary Disorders: No - PSYCHIATRIC Hx Anxiety: Yes Hx Depression: Yes Hx Substance Use: No - SURGICAL HISTORY Hx Coronary Stent: Yes - ANESTHESIA Hx Anesthesia: Yes Hx Anesthesia Reactions: No Hx Malignant Hyperthermia: No Meds Allergies/Adverse Reactions: Allergies Allergy/AdvReac Type Severity Reaction Status Date / Time levofloxacin Allergy Intermediate RASH Verified 02/04/18 08:19 Penicillins Allergy Intermediate RASH Verified 02/04/18 08:19 Band-Aid Allergy Mild RASH Verified 02/04/18 08:19 Iodinated Contrast- Oral and Allergy SHORTNESS Verified 04/24/18 11:32 IV Dye OF BREATH hydromorphone AdvReac DELIRIUM Verified 02/04/18 08:19 fragrance Allergy Intermediate RASH Uncoded 02/04/18 08:19 Results - Vital Signs Recent Vital Signs: Last Vital Signs Temp 99.3 F 04/24/18 17:48 Pulse 94 H 04/24/18 21:40 Resp 17 04/24/18 21:40 BP 158/76 H 04/24/18 21:40 Pulse Ox 97 04/24/18 21:40 - Labs Result Diagrams: 04/24/18 19:17 04/24/18 19:17 Labs: Laboratory Results - last 24 hr 04/24/18 04/24/18 04/24/18 19:17 19:17 19:17 WBC 4.2 L RBC 3.17 L Hgb 9.3 L Hct 29.0 L MCV 91.5 MCH 29.3 MCHC 32.0 L RDW 14.3 Plt Count 140 MPV 11.3 Neut % (Auto) 91.8 H Lymph % (Auto) 7.2 L [place] % (Auto) 0.5 Eos % (Auto) 0.3 Baso % (Auto) 0.2 Neut # (Auto) 3.8 Lymph # (Auto) 0.3 L [place] # (Auto) 0.0 Eos # (Auto) 0.0 Baso # (Auto) 0.0 Neutrophils % (Manual) 96 H Lymphocytes % (Manual) 4 L Monocytes % (Manual) TEST NOT PERFORMED Platelet Estimate Normal Polychromasia Slight Hypochromasia (manual) Slight PT 11.3 INR 1.0 APTT 33 pO2 VBG pH VBG pCO2 VBG HCO3 VBG Total CO2 VBG O2 Sat (Calc) VBG Base Excess VBG Potassium Glucose Lactate Crit Value Called To Crit Value Called By Crit Value Read Back Blood Gas Notified Time Sodium 135 Potassium 5.9 H Chloride 107 Carbon Dioxide 13 L Anion Gap 21 H BUN 31 H Creatinine 1.9 H Est GFR ( Amer) 33 Est GFR (Non-Af Amer) 27 POC Glucose (mg/dL) Random Glucose 601 H* D Calcium 8.2 L Total Bilirubin 0.6 AST 34 ALT 36 Alkaline Phosphatase 98 Troponin I < 0.0120 NT-Pro-B Natriuret Pep 1480 H Total Protein 6.5 Albumin 4.0 Globulin 2.5 Albumin/Globulin Ratio 1.6 Venous Blood Potassium Urine Color Urine Clarity Urine pH Ur Specific [place] Urine Protein Urine Glucose (UA) Urine Ketones Urine Blood Urine Nitrate Urine Bilirubin Urine Urobilinogen Ur Leukocyte Esterase Urine RBC (Auto) Ur Squamous Epith Cells 04/24/18 04/24/18 04/24/18 20:23 20:50 21:17 WBC RBC Hgb Hct MCV MCH MCHC RDW Plt Count MPV Neut % (Auto) Lymph % (Auto) [place] % (Auto) Eos % (Auto) Baso % (Auto) Neut # (Auto) Lymph # (Auto) [place] # (Auto) Eos # (Auto) Baso # (Auto) Neutrophils % (Manual) Lymphocytes % (Manual) Monocytes % (Manual) Platelet Estimate Polychromasia Hypochromasia (manual) PT INR APTT pO2 58 H VBG pH 7.31 L VBG pCO2 28 L VBG HCO3 16.4 VBG Total CO2 15.0 L VBG O2 Sat (Calc) 93.9 H VBG Base Excess -10.6 L VBG Potassium 6.7 H* Glucose 533 H* D Lactate 2.3 H Crit Value Called To Dr. ruiz Crit Value Called By Nafisa warren rcp Crit Value Read Back Y Blood Gas Notified Time 2054 Sodium 133.0 Potassium Chloride 110.0 H Carbon Dioxide Anion Gap BUN Creatinine Est GFR ( Amer) Est GFR (Non-Af Amer) POC Glucose (mg/dL) 489 H* Random Glucose Calcium Total Bilirubin AST ALT Alkaline Phosphatase Troponin I NT-Pro-B Natriuret Pep Total Protein Albumin Globulin Albumin/Globulin Ratio Venous Blood Potassium 6.7 H* Urine Color Straw Urine Clarity Clear Urine pH 5.0 Ur Specific [place] 1.015 Urine Protein Negative Urine Glucose (UA) 3+ H Urine Ketones Negative Urine Blood Negative Urine Nitrate Negative Urine Bilirubin Negative Urine Urobilinogen Normal Ur Leukocyte Esterase Neg Urine RBC (Auto) 1 Ur Squamous Epith Cells 1 04/24/18 23:00 WBC RBC Hgb Hct MCV MCH MCHC RDW Plt Count MPV Neut % (Auto) Lymph % (Auto) [place] % (Auto) Eos % (Auto) Baso % (Auto) Neut # (Auto) Lymph # (Auto) [place] # (Auto) Eos # (Auto) Baso # (Auto) Neutrophils % (Manual) Lymphocytes % (Manual) Monocytes % (Manual) Platelet Estimate Polychromasia Hypochromasia (manual) PT INR APTT pO2 VBG pH VBG pCO2 VBG HCO3 VBG Total CO2 VBG O2 Sat (Calc) VBG Base Excess VBG Potassium Glucose Lactate Crit Value Called To Crit Value Called By Crit Value Read Back Blood Gas Notified Time Sodium Potassium Chloride Carbon Dioxide Anion Gap BUN Creatinine Est GFR ( Amer) Est GFR (Non-Af Amer) POC Glucose (mg/dL) 456 H* Random Glucose Calcium Total Bilirubin AST ALT Alkaline Phosphatase Troponin I NT-Pro-B Natriuret Pep Total Protein Albumin Globulin Albumin/Globulin Ratio Venous Blood Potassium Urine Color Urine Clarity Urine pH Ur Specific [place] Urine Protein Urine Glucose (UA) Urine Ketones Urine Blood Urine Nitrate Urine Bilirubin Urine Urobilinogen Ur Leukocyte Esterase Urine RBC (Auto) Ur Squamous Epith Cells
[2018-04-24] MEDS ORDERED: Insulin Detemir 100 units/ml Vial (Levemir) SC SCH (23:45)
[2018-04-25 00:20] VITALS: O2SAT 96
[2018-04-25] MEDS ORDERED: Albuterol-Ipratrop 3 mg / 0.5 (3 ml) UD INH SCH (02:00)
[2018-04-25] MEDS ORDERED: (Novolog) Insulin Aspart, Recombinant 100 u/ml 10 ml vial SC SCH (07:30)
[2018-04-25] MEDS ORDERED: LOSARTAN PO SCH (10:00)
[2018-04-25] MEDS ORDERED: Calcium-Vit D 500 mg-200 Units Tab UD PO SCH (10:00)
[2018-04-25] MEDS ORDERED: IRBESARTAN PO SCH (10:00)
[2018-04-25] MEDS ORDERED: HYDROCHLOROTHIAZIDE PO SCH ×2 (10:00)
--- NOTE | 2018-04-26 01:03 | CARD ---
APPROVED REPORT Date of service: 04/24/2018 EKG Measurement Heart [id number] <Conclusion> Sinus tachycardia Left axis deviation Moderate voltage criteria for LVH, may be normal variant Abnormal ECG
== END 2018-04-24 23:30 | disposition left against medical advice (07) ==
LOC: C.ER 17:43 → C.9E 21:29 → UNDOADMIN 21:29 → UNDODISIN 23:13
DX: J45.901 Unspecified asthma with (acute) exacerbation (principal); E11.65 Type 2 diabetes mellitus with hyperglycemia; I10 Essential (primary) hypertension; E11.40 Type 2 diabetes mellitus with diabetic neuropathy, unspecified; J44.9 Chronic obstructive pulmonary disease, unspecified; E03.9 Hypothyroidism, unspecified; M06.9 Rheumatoid arthritis, unspecified; G47.30 Sleep apnea, unspecified; E78.00 Pure hypercholesterolemia, unspecified; E78.5 Hyperlipidemia, unspecified; Z95.5 Presence of coronary angioplasty implant and graft; Z79.4 Long term (current) use of insulin
CPT/HCPCS: 71045; 80053; 81001; 82803; 82948; 83880; 84484; 85025; 85610; 85730; 93005; 94640; 96365; 96375; 99285; J0456; J1940; J2930; J3475; J7050

== ENCOUNTER 2018-09-02 05:18 | Inpatient (IN) | payer MEDICARE ==
[2018-09-02 05:36] VITALS: BMI 32.9
[2018-09-02] MEDS ORDERED: Albuterol-Ipratrop 3 mg / 0.5 (3 ml) UD INH STA ×3 (05:37→05:38)
[2018-09-02] MEDS ORDERED: Albuterol-Ipratrop 3 mg / 0.5 (3 ml) UD ONE (05:38)
--- NOTE | 2018-09-02 05:41 | C.PDOC ---
History Of Present Illness 57 year old female with PMHx of asthma and CHF presents to the ED c/o SOB and cough for the past few weeks. Patient states symptoms worsened today. Patient denies fever, chills, CP, palpitations, abdominal pain, nausea, vomit, rash, weakness, numbness. Chief Complaint (Nursing): Shortness Of Breath History Per: Patient History/Exam Limitations: no limitations Onset/Duration Of Symptoms: Days Current Symptoms Are (Timing): Still Present Initiating Event: Upper Respiratory Illness Quality: "Pain" Current Respiratory Medications: See Home Med List Associated Symptoms: Productive Cough Recent travel outside of the [place]: No Additional History Per: Patient Past Medical History Reviewed: Historical Data, Nursing Documentation, Vital Signs Vital Signs: Last Vital Signs Temp 98.1 F 09/02/18 05:32 Pulse 81 09/02/18 05:32 Resp 20 09/02/18 05:32 BP 135/71 09/02/18 05:32 Pulse Ox 94 L 09/02/18 05:32 - Medical History PMH: Anemia, Anxiety, Arthritis, Asthma, COPD, Depression, Diabetes (type I and II, associated diabetic neuropathy), Gastritis, HTN, Hypercholesterolemia, Hyperlipidemia, Hypothyroidism, Malignancy (Thyroid), Rheumatoid Arthritis, Sleep Apnea Denies: Chronic Kidney Disease Surgical History: Coronary Stent - [facility] Procedures AMPUTATION THROUGH FOOT (05/13/15) ANGIOPLASTY OF OTHER NON-CORONARY VESSEL(S) (03/25/15) ATTACH PEDICLE GRAFT NEC (05/13/15) CONTRAST ARTERIOGRAM-LEG (03/25/15) DETACHMENT AT LEFT FOOT, PARTIAL 1ST RAY, OPEN APPROACH (11/04/15) DETACHMENT AT LEFT FOOT, PARTIAL 2ND RAY, OPEN APPROACH (11/04/15) DETACHMENT AT LEFT FOOT, PARTIAL 3RD RAY, OPEN APPROACH (11/04/15) DETACHMENT AT LEFT FOOT, PARTIAL 4TH RAY, OPEN APPROACH (11/04/15) DETACHMENT AT LEFT FOOT, PARTIAL 5TH RAY, OPEN APPROACH (11/04/15) EXCISION OF LEFT FOOT SKIN, EXTERNAL APPROACH (07/04/15) EXCISION OF R FOOT SUBCU/FASCIA, OPEN APPROACH (07/04/15) EXERCISE TRMT MUSCULOSK LOW BACK/LE W ASSIST EQUIP (10/28/15) FLUOROSCOPY OF AORTA AND BILATERAL LOWER EXTREMITY ARTERIES (07/04/15) FLUOROSCOPY OF SUP VENA CAVA USING [facility] CONTRAST, GUIDANCE (09/28/15) FLUOROSCOPY OF SUPERIOR VENA CAVA, GUIDANCE (11/04/15) GAIT TRAINING/AMBULAT TREATMENT USING ASSIST EQUIPMENT (10/28/15) GROOMING/PERSONAL HYGIENE TREATMENT USING ASSIST EQUIPMENT (10/28/15) INJECT/INFUSE NEC (07/01/15) INSERTION OF INFUSION DEV INTO SUP VENA CAVA, PERC APPROACH (11/04/15) INTRODUCE OTH ANTI-INFECT IN CENTRAL VEIN, PERC (11/04/15) INTRODUCE REGIONAL ANESTH IN PERIPH NRV, PLEXI, PERC (07/04/15) INTRODUCTION OF SERUM/TOX/VACCINE INTO MUSCLE, PERC APPROACH (09/28/15) OCCUPATIONAL THERAPY (05/20/15) PACKED CELL TRANSFUSION (05/13/15) PHYSICAL THERAPY NEC (05/20/15) PROCEDURE ON SINGLE VESSEL (03/25/15) REPLACE R FOOT SKIN W NONAUT SUB, FULL THICK, COMPLIANCE ASSISTANT (07/04/15) TOE AMPUTATION (03/25/15) TRANSFUSE NONAUT RED BLOOD CELLS IN PERIPH VEIN, PERC (09/28/15) Family History: States: Unknown Family Hx - Social History Hx Tobacco Use: No Hx Alcohol Use: No Hx Substance Use: No - Immunization History Hx Tetanus Toxoid Vaccination: No Hx Influenza Vaccination: Yes (08/07/17) Hx Pneumococcal Vaccination: No (2011) Review Of Systems Constitutional: Negative for: Fever, Chills Cardiovascular: Negative for: Chest Pain, Palpitations Respiratory: Positive for: Cough, Shortness of Breath. Negative for: Sputum, Wheezing Gastrointestinal: Negative for: Nausea, Vomiting, Abdominal Pain Skin: Negative for: Rash Neurological: Negative for: Weakness, Numbness Physical Exam - Physical Exam Appears: Non-toxic, No Acute Distress Skin: Normal Color, Warm, Dry Head: Atraumatic, Normacephalic Eye(s): bilateral: Normal Inspection Oral Mucosa: Moist Neck: Normal ROM, Supple Chest: Symmetrical Cardiovascular: Rhythm Regular, No JVD Respiratory: No Rales, Rhonchi (bilateral), Wheezing (bilateral) Gastrointestinal/Abdominal: Soft, No Tenderness, No Guarding, No Rebound Extremity: Normal ROM, No Tenderness, No Swelling Neurological/Psych: Oriented x3, Normal Speech, Normal Cognition Gait: Steady ED Course And Treatment - Laboratory Results Result Diagrams: 09/02/18 06:00 09/02/18 06:00 ECG: Interpreted By Me, Viewed By Me ECG Rhythm: Sinus Rhythm ECG Interpretation: No Acute Changes, Abnormal Interpretation Of ECG: NSR, LVH, abnormal tracings. Rate From EC O2 Sat by Pulse Oximetry: 94 Pulse Ox Interpretation: Normal Medical Decision Making Medical Decision Making: Plan: * EKG * Labs * CXR * Duoneb x 3 * Solumedrol 125 mg IV On reevaluation patient was noted to be coughing bloody sputum. Disposition Discussed With Dr.: Mahad Pacheco Doctor Will See Patient In The: Hospital Counseled Patient/Family Regarding: Diagnosis - Disposition Disposition: HOSPITALIZED Disposition Time: 06:38 Condition: STABLE Forms: [facility] [employer] (Bengali) - POA Present On Arrival: None - Clinical Impression Clinical Impression: Dyspnea, Respiratory distress, COPD with exacerbation, Renal insufficiency, Diabetes mellitus, Electrolyte abnormality - Scribe Statement The provider has reviewed the documentation as recorded by the Scribe Ahmet Lara All medical record entries made by the Scribe were at my direction and personally dictated by me. I have reviewed the chart and agree that the record accurately reflects my personal performance of the history, physical exam, medical decision making, and the department course for this patient. I have also personally directed, reviewed, and agree with the discharge instructions and disposition.
[2018-09-02 06:04] LABS: BASO # 0.1 K/uL (0.0-0.2); EOS # 0.2 K/uL (0.0-0.7); EOS % 2.4 % (0.0-4.0); HEMOGLOBIN 11.5 g/dL (11.0-16.0); LYMPH # 1.8 K/uL (1.0-4.3); LYMPH % 17.9 % (20.0-40.0); MEAN CELL VOLUME 86.9 fL (81.0-99.0); MEAN CORPUSCULAR HGB CONC 33.4 g/dL (33.0-37.0); MEAN PLATELET VOLUME 11.5 fL (7.2-11.7); MONO # 0.7 K/uL (0.0-0.8); MONO % 7.3 % (0.0-10.0); NEUT % 71.4 % (50.0-75.0); NRBC % 0.1 % (0.0-2.0); RBC 3.98 Mil/uL (3.80-5.20); RED CELL DISTRIBUTION WIDTH 13.2 % (11.5-14.5); WHITE BLOOD COUNT 9.8 K/uL (4.8-10.8)
[2018-09-02 06:14] LABS: PROTHROMBIN TIME 10.6 SECONDS (9.7-12.2)
[2018-09-02 06:16] LABS: ALB/GLOB RATIO 1.5 (1.0-2.1); ALBUMIN 4.4 g/dL (3.5-5.0); ALT/SGPT 25 U/L (9-52); AST/SGOT 25 U/L (14-36); BLOOD UREA NITROGEN 91 mg/dL (7-17); CALCIUM 7.5 mg/dl (8.6-10.4); GFR NON-AFRICAN AMERICAN 20
[2018-09-02] MEDS ORDERED: (Novolin R) Insulin Human Regular 100 units/ml vial SC ONE (06:22)
[2018-09-02 06:24] LABS: B-TYPE NATRIURETIC PEPTIDE 196 pg/mL (0-900)
[2018-09-02] MEDS ORDERED: (Novolin R) Insulin Human Regular 100 units/ml vial ONE (06:29)
[2018-09-02] MEDS ORDERED: Sodium Chloride 0.45% 1,000 ML IV SCH (06:45)
[2018-09-02 06:46] LABS: ABG ALLEN TEST POS; ARTERIAL BLOOD GAS HCO3 26.7 mmol/L (21-28); ARTERIAL BLOOD GAS HEMOGLOBIN 11.6 g/dL (11.7-17.4); ARTERIAL BLOOD GAS O2 SAT 96.9 % (95-98); ARTERIAL BLOOD GAS PCO2 46 mm/Hg (35-45); ARTERIAL BLOOD GAS PH 7.39 (7.35-7.45); ARTERIAL BLOOD GAS PO2 92 mm/Hg (80-100); ARTERIAL BLOOD GAS TCO2 29.2 mmol/L (22-28)
[2018-09-02] MEDS ORDERED: Sodium Chloride 0.45% 1,000 ML IV ONE (06:55)
[2018-09-02] MEDS: Albuterol-Ipratrop 3 mg / 0.5 (3 ml) UD INH SCH ×5 (07:24→23:34)
--- NOTE | 2018-09-02 09:45 | RAD ---
Chest x-ray single frontal view HISTORY: Shortness of breath. COMPARISON: 04/24/2018 Findings: Mild venous congestion. Mild right hilar prominence. Patchy increased markings at the left lung base. Heart size within normal limits. Impression: Mild venous congestion. Mild right hilar prominence. Patchy increased markings at the left lung base.
[2018-09-02] MEDS ORDERED: Dextrose 50% SYRINGE Inj (50 ml) IV PRN (11:32)
[2018-09-02] MEDS ORDERED: Glucagon Recombinant 1 mg Inj IM PRN (11:32)
[2018-09-02] MEDS: (Novolog) Insulin Aspart, Recombinant 100 u/ml 10 ml vial SC SCH ×3 (12:22→22:36)
[2018-09-02] MEDS: Sodium Chloride 0.9% 1,000 ML IV SCH (12:22)
--- NOTE | 2018-09-02 14:55 | CP.PCM.HP ---
History of Present Illness - History of Present Illness History of Present Illness: 57 years old woman admitted with acute shortness of breath cough and expectoration Patient states that last 2 days patient been complaining of cough expectoration and wheezing shortness of breath. On the day of admission patient was unable to breathe at rest presented to [facility] ER. Chest x-ray showed patchy infiltrate in the left lower lobe. Patient was given multiple bronchodilators without much improvement and patient was admitted for the treatment Past history Patient has multiple medical problems patient has a history of COPD coronary artery disease history of severe peripheral vascular disease with angioplasty and stent and left toe amputation history of type 2 diabetes history of hyperte nsion and cholesterolemia depression history of chronic renal insufficiency secondary to diabetes hypertension and history of thyroid cancer. Patient has multiple admissions in the hospital in the past. Personal history denies smoking and alcohol Present on Admission - Present on Admission Any Indicators Present on Admission: No Review of Systems - Constitutional Constitutional: Chills, Fever, Malaise - EENT Eyes: absent: As Per HPI, Blind Spots, Blurred Vision, Change in Vision, Decreased Night Vision, Diplopia, Discharge, Dry Eye, Exophthalmos, Floaters, Irritation, Itchy Eyes, Loss of Peripheral Vision, Pain, Photophobia, Requires Corrective Lenses, Sees Flashes, Spots in Vision, Tunnel Vision, Other Visual Disturbances, Loss of Vision, Other Ears: absent: As Per HPI, Decreased Hearing, Ear Discharge, Ear Pain, Tinnitus, Abnormal Hearing, Disequilibrium, Dizziness, Other Nose/Mouth/Throat: absent: As Per HPI, Epistaxis, Nasal Congestion, Nasal Disc harge, Nasal Obstruction, Nasal Trauma, Nose Pain, Post Nasal Drip, Sinus Pain, Sinus Pressure, Bleeding Gums, Change in Voice, Dental Pain, Dry Mouth, Dysphagia, Halitosis, Hoarsness, Lip Swelling, Mouth Lesions, Mouth Pain, Odynophagia, Sore Throat, Throat Swelling, Tongue Swelling, Facial Pain, Neck Pain, Neck Mass, Other - Breasts Breasts: absent: As Per HPI, Change in Shape, Mass, Pain, Nipple Discharge, Nipple Inversion, Skin Changes, Swelling, Other - Cardiovascular Cardiovascular: Dyspnea, Orthopnea, Palpitations - Respiratory Respiratory: Cough, Dyspnea, Dyspnea on Exertion, Wheezing, Snoring. absent: Hemoptysis, Pain with Coughing - Gastrointestinal Gastrointestinal: absent: As Per HPI, Abdominal Pain, Belching, Bloating, Change in Bowel Habits, Change in Stool Character, Coffee Ground Emesis, Constipation, Cramping, Diarrhea, Dyspepsia, Dysphagia, Early Satiety, Excessive Flatus, Fecal Incontinence, Heartburn, Hematemesis, Hematochezia, Loose Stools, Melena, Nausea, Odynophagia, Temesmus, Vomiting, Other - Genitourinary Genitourinary: absent: As Per HPI, Change in Urinary Stream, Difficulty Urinating, Dysuria, Flank Pain, Hematuria, Pyuria, Nocturia, Urinary Incontinence, Urinary Frequency, Urinary Hesitance, Urinary Urgency, Voiding Freq/Small Amts, Freq UTI, Hx Renal/Bladder Calculi, Hx /Renal Surgery, Bladder Distension, Other - Integumentary Integumentary: absent: As Per HPI, Acne, Alopecia, Bleeding Lesions, Change in Hair, Change in Nails, Change in Pigmentation, Changing Lesions, Dry Skin, Erythema, Furuncle, Hirsutism, Lesions, New Lesions, Non-Healing Lesions, Photosensitivity, Pruritus, Rash, Skin Pain, Skin Ulcer, Sores, Striae, Swelling, Unusual Bruising, Wounds, Jaundice, Other - Neurological Neurological: absent: As Per HPI, Abnormal Gait, Abnormal Hearing, Abnormal Mo vements, Abnormal Speech, Behavioral Changes, Burning Sensations, Confusion, Convulsions, Disequilibrium, Dizziness, Numbness, Focal Weakness, Frequent Falls, Headaches, Lack of Coordination, Loss of Vision, Memory Loss, Paresthesias, Radicular Pain, Restless Legs, Sensory Deficit, Syncope, Tingling, Tremor, Vertigo, Weakness, Other Visual Disturbances, Other - Psychiatric Psychiatric: Anxiety, Depression - Endocrine Endocrine: absent: As Per HPI, Change in Body Appearance, Change in Libido, Cold Intolorance, Deepening of Voice, Excessive Sweating, Fatigue, Flushing, Heat Intolorance, Increase in Ring/Shoe/Hat Size, Palpitations, Polydipsia, Polyphagia, Polyuria, Other - Hematologic/Lymphatic Hematologic: absent: As Per HPI, Easy Bleeding, Easy Bruising, Lymphadenopathy, Other Past Patient History - Infectious Disease Hx of Infectious Diseases: None - Past Medical History & Family History Past Medical History?: Yes - Past Social History Smoking Status: Never Smoked - CARDIAC Hx Hypercholesterolemia: Yes Hx Hypertension: Yes - PULMONARY Hx Asthma: Yes Hx Chronic Obstructive Pulmonary Disease (COPD): Yes Hx Sleep Apnea: Yes - NEUROLOGICAL Hx Neurological Disorder: Yes (Diabetic neuropathy) - HEENT Hx HEENT Problems: No - RENAL Hx Chronic Kidney Disease: No - ENDOCRINE/METABOLIC Hx Diabetes Mellitus Type 2: Yes Hx Hypothyroidism: Yes - HEMATOLOGICAL/ONCOLOGICAL Hx Anemia: Yes - INTEGUMENTARY Hx Dermatological Problems: Yes Other/Comment: Hx BLE TMA incisions 2 neuromas in healing - MUSCULOSKELETAL/RHEUMATOLOGICAL Hx Falls: No - GASTROINTESTINAL Hx Gastritis: Yes - GENITOURINARY/GYNECOLOGICAL Hx Genitourinary Disorders: No - PSYCHIATRIC Hx Substance Use: No - SURGICAL HISTORY Hx Coronary Stent: Yes - ANESTHESIA Hx Anesthesia: Yes Hx Anesthesia Reactions: No Hx Malignant Hyperthermia: No Meds Allergies/Adverse Reactions: Allergies Allergy/AdvReac Type Severity Reaction Status Date / Time levofloxacin Allergy Intermediate RASH Verified 02/04/18 08:19 Penicillins Allergy Intermediate RASH Verified 02/04/18 08:19 Band-Aid Allergy Mild RASH Verified 02/04/18 08:19 Iodinated Contrast- Oral and Allergy SHORTNESS Verified 04/24/18 11:32 IV Dye OF BREATH hydromorphone AdvReac DELIRIUM Verified 02/04/18 08:19 fragrance Allergy Intermediate RASH Uncoded 02/04/18 08:19 Physical Exam - Head Exam Head Exam: ATRAUMATIC - Eye Exam Eye Exam: EOMI, Normal appearance, PERRL - ENT Exam ENT Exam: Mucous Membranes Moist, Normal Exam - Neck Exam Neck exam: Positive for: Normal Inspection - Respiratory Exam Respiratory Exam: Decreased Breath Sounds, Prolonged Expiratory Phase, Rhonchi, Wheezes - Cardiovascular Exam Cardiovascular Exam: REGULAR RHYTHM, +S1, +S2, +S4 - GI/Abdominal Exam GI & Abdominal Exam: Normal Bowel Sounds, Soft. absent: Tenderness - Rectal Exam Rectal Exam: Deferred - Extremities Exam Extremities exam: Positive for: normal inspection. Negative for: calf tenderness - Back Exam Back exam: NORMAL INSPECTION Results - Vital Signs Recent Vital Signs: Last Vital Signs Temp 97.5 F L 09/02/18 09:08 Pulse 73 09/02/18 14:19 Resp 18 09/02/18 09:08 BP 97/63 L 09/02/18 14:19 Pulse Ox 95 09/02/18 09:08 - Labs Result Diagrams: 09/02/18 06:00 09/02/18 06:00 Labs: Laboratory Results - last 24 hr 11/17/18 11/17/18 11/17/18 05:24 06:00 06:00 WBC 9.8 D RBC 3.98 Hgb 11.5 D Hct 34.6 MCV 86.9 D MCH 29.0 MCHC 33.4 RDW 13.2 Plt Count 204 MPV 11.5 Neut % (Auto) 71.4 Lymph % (Auto) 17.9 L [place] % (Auto) 7.3 Eos % (Auto) 2.4 Baso % (Auto) 1.0 Neut # (Auto) 7.0 Lymph # (Auto) 1.8 [place] # (Auto) 0.7 Eos # (Auto) 0.2 Baso # (Auto) 0.1 PT 10.6 INR 1.0 APTT 29 D-Dimer, Quantitative 204 Puncture Site pCO2 pO2 HCO3 ABG pH ABG Total CO2 ABG O2 Saturation ABG Base Excess ABG Hemoglobin ABG Carboxyhemoglobin POC ABG HHb (Measured) ABG Methemoglobin Stalin Test A-a O2 Difference Respiratory Index Hgb O2 Saturation FiO2 Sodium Potassium Chloride Carbon Dioxide Anion Gap BUN Creatinine Est GFR ( Amer) Est GFR (Non-Af Amer) POC Glucose (mg/dL) 330 H Random Glucose Calcium Total Bilirubin AST ALT Alkaline Phosphatase Troponin I NT-Pro-B Natriuret Pep Total Protein Albumin Globulin Albumin/Globulin Ratio 09/02/18 09/02/18 09/02/18 06:00 06:40 09:13 WBC RBC Hgb Hct MCV MCH MCHC RDW Plt Count MPV Neut % (Auto) Lymph % (Auto) [place] % (Auto) Eos % (Auto) Baso % (Auto) Neut # (Auto) Lymph # (Auto) [place] # (Auto) Eos # (Auto) Baso # (Auto) PT INR APTT D-Dimer, Quantitative Puncture Site Rba pCO2 46 H pO2 92 HCO3 26.7 ABG pH 7.39 ABG Total CO2 29.2 H ABG O2 Saturation 96.9 ABG Base Excess 2.3 ABG Hemoglobin 11.6 L ABG Carboxyhemoglobin 1.5 POC ABG HHb (Measured) 3.0 ABG Methemoglobin 1.3 Stalin Test Pos A-a O2 Difference 86.0 Respiratory Index 0.9 Hgb O2 Saturation 94.2 L FiO2 33.0 Sodium 128 L Potassium 3.3 L Chloride 87 L Carbon Dioxide 25 Anion Gap 20 BUN 91 H Creatinine 2.5 H Est GFR ( Amer) 24 Est GFR (Non-Af Amer) 20 POC Glucose (mg/dL) 260 H Random Glucose 297 H Calcium 7.5 L Total Bilirubin 0.6 AST 25 ALT 25 Alkaline Phosphatase 162 H D Troponin I < 0.0120 NT-Pro-B Natriuret Pep 196 Total Protein 7.3 Albumin 4.4 Globulin 2.9 Albumin/Globulin Ratio 1.5 09/02/18 11:44 WBC RBC Hgb Hct MCV MCH MCHC RDW Plt Count MPV Neut % (Auto) Lymph % (Auto) [place] % (Auto) Eos % (Auto) Baso % (Auto) Neut # (Auto) Lymph # (Auto) [place] # (Auto) Eos # (Auto) Baso # (Auto) PT INR APTT D-Dimer, Quantitative Puncture Site pCO2 pO2 HCO3 ABG pH ABG Total CO2 ABG O2 Saturation ABG Base Excess ABG Hemoglobin ABG Carboxyhemoglobin POC ABG HHb (Measured) ABG Methemoglobin Stalin Test A-a O2 Difference Respiratory Index Hgb O2 Saturation FiO2 Sodium Potassium Chloride Carbon Dioxide Anion Gap BUN Creatinine Est GFR ( Amer) Est GFR (Non-Af Amer) POC Glucose (mg/dL) 356 H Random Glucose Calcium Total Bilirubin AST ALT Alkaline Phosphatase Troponin I NT-Pro-B Natriuret Pep Total Protein Albumin Globulin Albumin/Globulin Ratio Assessment & Plan (1) Respiratory infection Status: Acute (2) COPD with exacerbation Status: Acute (3) Diabetes Status: Chronic Priority: High (4) Renal insufficiency Status: Acute (5) Pneumonia Status: Acute
[2018-09-02] MEDS: MethylPREDNISolone 40 mg Vial IV SCH (20:23)
[2018-09-02] MEDS ORDERED: (Novolog) Insulin Aspart, Recombinant 100 u/ml 10 ml vial SC STA (21:18)
[2018-09-02] MEDS ORDERED: Insulin Detemir 100 units/ml Vial (Levemir) SC ONE (22:30)
[2018-09-03] MEDS: MethylPREDNISolone 40 mg Vial IV SCH ×3 (01:38→17:46)
[2018-09-03] MEDS: (Novolog) Insulin Aspart, Recombinant 100 u/ml 10 ml vial SC SCH ×6 (03:04→21:57)
[2018-09-03] MEDS: Albuterol-Ipratrop 3 mg / 0.5 (3 ml) UD INH SCH ×5 (03:13→19:31)
[2018-09-03] MEDS: Sodium Chloride 0.9% 1,000 ML IV SCH ×2 (08:45→11:08)
[2018-09-03 09:33] LABS: BASO % 0.3 % (0.0-2.0); LYMPH # 0.5 K/uL (1.0-4.3); LYMPH % 7.8 % (20.0-40.0); MEAN CELL VOLUME 88.7 fL (81.0-99.0); MEAN CORPUSCULAR HEMOGLOBIN 29.4 pg (27.0-31.0); MEAN CORPUSCULAR HGB CONC 33.1 g/dL (33.0-37.0); MEAN PLATELET VOLUME 11.5 fL (7.2-11.7); MONO # 0.1 K/uL (0.0-0.8); MONO % 1.6 % (0.0-10.0); NEUT # 6.1 K/uL (1.8-7.0); NEUT % 90.3 % (50.0-75.0); NRBC % 0.1 % (0.0-2.0); PLATELET COUNT 135 K/uL (130-400); RBC 3.41 Mil/uL (3.80-5.20); RED CELL DISTRIBUTION WIDTH 13.3 % (11.5-14.5); WHITE BLOOD COUNT 6.8 K/uL (4.8-10.8)
[2018-09-03 10:13] LABS: ALB/GLOB RATIO 1.5 (1.0-2.1); ALBUMIN 3.6 g/dL (3.5-5.0); CALCIUM 6.6 mg/dl (8.6-10.4)
[2018-09-03] MEDS: Insulin Detemir 100 units/ml Vial (Levemir) SC SCH (11:01)
[2018-09-03 11:05] LABS: ANISOCYTOSIS SLIGHT; BANDS 1 % (0-2); LYMPHOCYTE 7 % (20-40); MONOCYTE 2 % (0-10); NEUTROPHIL 90 % (50-75); PLATELET ESTIMATE NORMAL (NORMAL); POIKILOCYTOSIS SLIGHT; TOTAL CELLS COUNTED 100
[2018-09-03 11:06] LABS: HYPOCHROMIC SLIGHT; OVALOCYTES SLIGHT; POLYCHROMIC SLIGHT; TOXIC GRANULATION PRESENT
[2018-09-03 11:07] LABS: LARGE PLATELETS PRESENT
--- NOTE | 2018-09-03 15:31 | CP.PCM.PN ---
Subjective - Date & Time of Evaluation Date of Evaluation: 09/03/18 Time of Evaluation: 15:30 - Subjective Subjective: Patient has improved on IV steroids. Since his sugars are trending up the steroid has been decreased to 40 mg every 8 hours. Still the sugars are elevated to more than 500. The insulin coverage has been increased Levemir has been added. If the trend continues will give insulin every 2 hours. Objective - Vital Signs/Intake and Output Vital Signs (last 24 hours): Temp Pulse Resp BP Pulse Ox 97.7 F 81 20 137/82 97 09/03/18 07:00 09/03/18 14:20 09/03/18 07:00 09/03/18 14:20 09/03/18 07:00 Intake and Output: 09/03/18 09/03/18 11:59 23:59 Intake Total 500 800 Output Total 3 Balance 500 797 - Medications Medications: Current Medications Albuterol/Ipratropium (Duoneb 3 Mg/0.5 Mg (3 Ml) Ud) 3 ml INH RQ4 [facility] Last Admin: 09/03/18 11:35 Dose: 3 ml Carvedilol (Coreg) 25 mg PO BID [facility] Last Admin: 09/03/18 11:06 Dose: 25 mg Clopidogrel Bisulfate (Plavix) 75 mg PO DAILY [facility] Last Admin: 09/03/18 11:01 Dose: 75 mg Dextrose (Dextrose 50% Inj) 0 ml IV STAT PRN; Protocol PRN Reason: Hypoglycemia Protocol Dextrose (Glutose 15) 15 gm PO ONCE PRN; Protocol PRN Reason: Hypoglycemia Protocol Famotidine (Pepcid) 40 mg PO BID [facility] Last Admin: 09/03/18 11:01 Dose: 40 mg Glimepiride (Amaryl) 4 mg PO BIDAC [facility] Last Admin: 09/03/18 07:54 Dose: 4 mg Glucagon (Glucagen Diagnostic Kit) 1 mg IM STAT PRN; Protocol PRN Reason: Hypoglycemia Protocol Heparin Sodium (Porcine) (Heparin) 5,000 units SC BID [facility] Last Admin: 09/03/18 11:01 Dose: 5,000 units Hydralazine HCl (Apresoline) 50 mg PO TID [facility] Last Admin: 09/03/18 14:24 Dose: 50 mg Dextrose (Dextrose 5% In Water 1000 Ml) 1,000 mls @ 0 mls/hr IV .Q0M PRN; Protocol PRN Reason: Hypoglycemia Protocol Sodium Chloride (Sodium Chloride 0.9%) 1,000 mls @ 50 mls/hr IV .Q20H [facility] Last Admin: 09/03/18 11:08 Dose: 50 mls/hr Doxycycline Hyclate 100 mg/ (Sodium Chloride) 100 mls @ 100 mls/hr IVPB Q12H [facility]; Protocol Last Admin: 09/03/18 04:13 Dose: 100 mls/hr Influenza Virus Vaccine (Fluzone Quad [id number]) 60 mcg IM .ONCE ONE Stop: 09/04/18 10:01 Insulin Aspart (Novolog) 0 unit SC ACHS [facility]; Protocol Last Admin: 09/03/18 11:44 Dose: 12 units Insulin Detemir (Levemir) 30 unit SC DAILY [facility] Last Admin: 09/03/18 11:01 Dose: 30 units Levothyroxine Sodium (Levothroid) 137 mcg PO DAILY@0630 [facility] Last Admin: 09/03/18 05:58 Dose: 137 mcg Methylprednisolone (Solu-Medrol) 40 mg IV Q8H [facility] Last Admin: 09/03/18 11:06 Dose: 40 mg Pregabalin (Lyrica) 100 mg PO BID [facility] Last Admin: 09/03/18 11:01 Dose: 100 mg Rosuvastatin Calcium (Crestor) 10 mg PO HS [facility] Last Admin: 09/02/18 21:58 Dose: 10 mg - Labs Labs: 09/03/18 09:24 09/03/18 09:24 PT 10.6 SECONDS (9.7-12.2) 09/02/18 06:00 INR 1.0 09/02/18 06:00 APTT 29 SECONDS (21-34) 09/02/18 06:00 Assessment and Plan (1) Respiratory infection Status: Acute (2) COPD with exacerbation Status: Acute (3) Diabetes Status: Chronic (4) Renal insufficiency Status: Acute (5) Pneumonia Status: Acute
--- NOTE | 2018-09-03 18:46 | CP.PCM.CON ---
History of Present Illness - History of Present Illness History of Present Illness: HPI: 57 years old woman admitted with acute shortness of breath cough and expectoration Patient states that last 2 days patient been complaining of cough expectoration and wheezing shortness of breath. On the day of admission patient was unable to breathe at rest presented to [facility] ER. Chest x-ray showed patchy infiltrate in the left lower lobe. Patient was given multiple bronchodilators without much improvement and patient was advised admission. Patient denies any chest pain or pleuritic pain. Patient denies any hemoptysis or hematemesis. Denies any palpitations. Patient denies any sore throat or headache. Denies any abdominal pain, nausea vomiting or diarrhea. Infectious disease consultation requested by PMD as patient has many allergies. PMH: Anemia, Anxiety, Arthritis, Asthma, COPD, Depression, Diabetes (type I and II, associated diabetic neuropathy), Gastritis, HTN, Hypercholesterolemia, Hyperlipidemia, Hypothyroidism, Malignancy (Thyroid), Rheumatoid Arthritis, Sleep Apnea Denies: Chronic Kidney Disease Surgical History: Coronary Stent - [facility] Procedures AMPUTATION THROUGH FOOT (05/13/15) ANGIOPLASTY OF OTHER NON-CORONARY VESSEL(S) (03/25/15) ATTACH PEDICLE GRAFT NEC (05/13/15) CONTRAST ARTERIOGRAM-LEG (03/25/15) DETACHMENT AT LEFT FOOT, PARTIAL 1ST RAY, OPEN APPROACH (11/04/15) DETACHMENT AT LEFT FOOT, PARTIAL 2ND RAY, OPEN APPROACH (11/04/15) DETACHMENT AT LEFT FOOT, PARTIAL 3RD RAY, OPEN APPROACH (11/04/15) DETACHMENT AT LEFT FOOT, PARTIAL 4TH RAY, OPEN APPROACH (11/04/15) DETACHMENT AT LEFT FOOT, PARTIAL 5TH RAY, OPEN APPROACH (11/04/15) EXCISION OF LEFT FOOT SKIN, EXTERNAL APPROACH (07/04/15) EXCISION OF R FOOT SUBCU/FASCIA, OPEN APPROACH (07/04/15) Family History: States: Unknown Family Hx - Social History Hx Tobacco Use: No Hx Alcohol Use: No Hx Substance Use: No - Immunization History Hx Tetanus Toxoid Vaccination: No Hx Influenza Vaccination: Yes (08/07/17) Hx Pneumococcal Vaccination: No (2011) ALLERGY: LEVOFLOXACIN,PENICILLIN,BAND-AID, IODINE-CONTRAST ORAL/IV DYE. HYDROMORPHONE,FRAGRANCE. Review of Systems - Constitutional Constitutional: Malaise. absent: Chills, Fever, Headache - EENT Eyes: absent: Photophobia Ears: As Per HPI, Decreased Hearing. absent: Ear Discharge, Ear Pain, Dizziness Nose/Mouth/Throat: absent: Mouth Lesions - Cardiovascular Cardiovascular: absent: Chest Pain - Respiratory Respiratory: Cough. absent: Hemoptysis - Gastrointestinal Gastrointestinal: absent: Abdominal Pain, Diarrhea, Nausea, Vomiting - Genitourinary Genitourinary: absent: Dysuria, Hematuria, Urinary Hesitance - Neurological Neurological: absent: Headaches Past Patient History - Infectious Disease Hx of Infectious Diseases: None - Past Medical History & Family History Past Medical History?: Yes - Past Social History Smoking Status: Never Smoked - CARDIAC Hx Hypercholesterolemia: Yes Hx Hypertension: Yes - PULMONARY Hx Asthma: Yes Hx Chronic Obstructive Pulmonary Disease (COPD): Yes Hx Sleep Apnea: Yes - NEUROLOGICAL Hx Neurological Disorder: Yes (Diabetic neuropathy) - HEENT Hx HEENT Problems: No - RENAL Hx Chronic Kidney Disease: No - ENDOCRINE/METABOLIC Hx Diabetes Mellitus Type 2: Yes Hx Hypothyroidism: Yes - HEMATOLOGICAL/ONCOLOGICAL Hx Anemia: Yes - INTEGUMENTARY Hx Dermatological Problems: Yes Other/Comment: Hx BLE TMA incisions 2 neuromas in healing - MUSCULOSKELETAL/RHEUMATOLOGICAL Hx Falls: No - GASTROINTESTINAL Hx Gastritis: Yes - GENITOURINARY/GYNECOLOGICAL Hx Genitourinary Disorders: No - PSYCHIATRIC Hx Substance Use: No - SURGICAL HISTORY Hx Coronary Stent: Yes - ANESTHESIA Hx Anesthesia: Yes Hx Anesthesia Reactions: No Hx Malignant Hyperthermia: No Meds Allergies/Adverse Reactions: Allergies Allergy/AdvReac Type Severity Reaction Status Date / Time levofloxacin Allergy Intermediate RASH Verified 02/04/18 08:19 Penicillins Allergy Intermediate RASH Verified 02/04/18 08:19 Band-Aid Allergy Mild RASH Verified 02/04/18 08:19 Iodinated Contrast- Oral and Allergy SHORTNESS Verified 04/24/18 11:32 IV Dye OF BREATH hydromorphone AdvReac DELIRIUM Verified 02/04/18 08:19 fragrance Allergy Intermediate RASH Uncoded 02/04/18 08:19 - Medications Medications: Current Medications Albuterol/Ipratropium (Duoneb 3 Mg/0.5 Mg (3 Ml) Ud) 3 ml INH RQ4 [facility] Last Admin: 09/03/18 15:46 Dose: 3 ml Carvedilol (Coreg) 25 mg PO BID [facility] Last Admin: 09/03/18 17:53 Dose: 25 mg Clopidogrel Bisulfate (Plavix) 75 mg PO DAILY [facility] Last Admin: 09/03/18 11:01 Dose: 75 mg Dextrose (Dextrose 50% Inj) 0 ml IV STAT PRN; Protocol PRN Reason: Hypoglycemia Protocol Dextrose (Glutose 15) 15 gm PO ONCE PRN; Protocol PRN Reason: Hypoglycemia Protocol Famotidine (Pepcid) 40 mg PO BID [facility] Last Admin: 09/03/18 17:52 Dose: 40 mg Glimepiride (Amaryl) 4 mg PO BIDAC [facility] Last Admin: 09/03/18 17:54 Dose: 4 mg Glucagon (Glucagen Diagnostic Kit) 1 mg IM STAT PRN; Protocol PRN Reason: Hypoglycemia Protocol Heparin Sodium (Porcine) (Heparin) 5,000 units SC BID [facility] Last Admin: 09/03/18 17:48 Dose: 5,000 units Hydralazine HCl (Apresoline) 50 mg PO TID [facility] Last Admin: 09/03/18 17:53 Dose: 50 mg Dextrose (Dextrose 5% In Water 1000 Ml) 1,000 mls @ 0 mls/hr IV .Q0M PRN; Pro tocol PRN Reason: Hypoglycemia Protocol Sodium Chloride (Sodium Chloride 0.9%) 1,000 mls @ 50 mls/hr IV .Q20H [facility] Last Admin: 09/03/18 11:08 Dose: 50 mls/hr Doxycycline Hyclate 100 mg/ (Sodium Chloride) 100 mls @ 100 mls/hr IVPB Q12H [facility]; Protocol Last Admin: 09/03/18 17:47 Dose: 100 mls/hr Influenza Virus Vaccine (Fluzone Quad [id number]) 60 mcg IM .ONCE ONE Stop: 09/04/18 10:01 Insulin Aspart (Novolog) 0 unit SC ACHS [facility]; Protocol Last Admin: 09/03/18 17:44 Dose: 12 units Insulin Detemir (Levemir) 30 unit SC DAILY [facility] Last Admin: 09/03/18 11:01 Dose: 30 units Levothyroxine Sodium (Levothroid) 137 mcg PO DAILY@0630 [facility] Last Admin: 09/03/18 05:58 Dose: 137 mcg Methylprednisolone (Solu-Medrol) 40 mg IV Q8H [facility] Last Admin: 09/03/18 17:46 Dose: 40 mg Pregabalin (Lyrica) 100 mg PO BID [facility] Last Admin: 09/03/18 17:47 Dose: 100 mg Rosuvastatin Calcium (Crestor) 10 mg PO HS [facility] Last Admin: 09/02/18 21:58 Dose: 10 mg Physical Exam - Constitutional Appears: No Acute Distress - Head Exam Head Exam: NORMAL INSPECTION - Eye Exam Eye Exam: EOMI, PERRL - ENT Exam ENT Exam: Normal Oropharynx - Neck Exam Neck exam: Positive for: Normal Inspection. Negative for: Meningismus, Thyromegaly - Respiratory Exam Respiratory Exam: Rhonchi (few scatterred rhonch LLL), Wheezes - Cardiovascular Exam Cardiovascular Exam: REGULAR RHYTHM, +S1, +S2 - GI/Abdominal Exam GI & Abdominal Exam: Normal Bowel Sounds, Soft. absent: Tenderness - Rectal Exam Rectal Exam: NORMAL INSPECTION - Neurological Exam Neurological exam: CN II-XII Intact - Psychiatric Exam Psychiatric exam: Normal Mood - Skin Skin Exam: Normal Color, Warm Results - Vital Signs Recent Vital Signs: Last Vital Signs Temp 97.5 F L 09/03/18 15:29 Pulse 80 09/03/18 15:29 Resp 20 09/03/18 15:29 BP 120/74 09/03/18 17:53 Pulse Ox 96 09/03/18 15:29 - Labs Result Diagrams: 09/03/18 09:24 09/03/18 09:24 Labs: Laboratory Results - last 24 hr 09/02/18 09/02/18 09/03/18 21:04 22:16 02:16 WBC RBC Hgb Hct MCV MCH MCHC RDW Plt Count MPV Neut % (Auto) Lymph % (Auto) Jay % (Auto) Eos % (Auto) Baso % (Auto) Neut # (Auto) Lymph # (Auto) Jay # (Auto) Eos # (Auto) Baso # (Auto) Neutrophils % (Manual) Band Neutrophils % Lymphocytes % (Manual) Monocytes % (Manual) Toxic Granulation Platelet Estimate Large Platelets Polychromasia Hypochromasia (manual) Poikilocytosis (manual Anisocytosis (manual) Ovalocytes Sodium Potassium Chloride Carbon Dioxide Anion Gap BUN Creatinine Est GFR ( Amer) Est GFR (Non-Af Amer) POC Glucose (mg/dL) > 500 H* > 500 H* > 500 H* Random Glucose Calcium Magnesium Total Bilirubin AST ALT Alkaline Phosphatase Total Protein Albumin Globulin Albumin/Globulin Ratio 09/03/18 09/03/1809/03/18 06:09 09:24 09:24 WBC 6.8 RBC 3.41 L Hgb 10.0 L Hct 30.3 L MCV 88.7 MCH 29.4 MCHC 33.1 RDW 13.3 Plt Count 135 MPV 11.5 Neut % (Auto) 90.3 H Lymph % (Auto) 7.8 L Jay % (Auto) 1.6 Eos % (Auto) 0.0 Baso % (Auto) 0.3 Neut # (Auto) 6.1 Lymph # (Auto) 0.5 L Jay # (Auto) 0.1 Eos # (Auto) 0.0 Baso # (Auto) 0.0 Neutrophils % (Manual) 90 H Band Neutrophils % 1 Lymphocytes % (Manual) 7 L Monocytes % (Manual) 2 Toxic Granulation Present Platelet Estimate Normal Large Platelets Present Polychromasia Slight Hypochromasia (manual) Slight Poikilocytosis (manual Slight Anisocytosis (manual) Slight Ovalocytes Slight Sodium 126 L Potassium 3.9 Chloride 91 L Carbon Dioxide 18 L Anion Gap 20 BUN 83 H Creatinine 2.0 H Est GFR ( Amer) 31 Est GFR (Non-Af Amer) 26 POC Glucose (mg/dL) > 500 H* Random Glucose 595 H* D Calcium 6.6 L Magnesium 1.8 Total Bilirubin 0.3 AST 19 ALT 22 Alkaline Phosphatase 164 H Total Protein 6.1 L Albumin 3.6 Globulin 2.4 Albumin/Globulin Ratio 1.5 09/03/18 09/03/18 11:18 17:25 WBC RBC Hgb Hct MCV MCH MCHC RDW Plt Count MPV Neut % (Auto) Lymph % (Auto) Jay % (Auto) Eos % (Auto) Baso % (Auto) Neut # (Auto) Lymph # (Auto) Jay # (Auto) Eos # (Auto) Baso # (Auto) Neutrophils % (Manual) Band Neutrophils % Lymphocytes % (Manual) Monocytes % (Manual) Toxic Granulation Platelet Estimate Large Platelets Polychromasia Hypochromasia (manual) Poikilocytosis (manual Anisocytosis (manual) Ovalocytes Sodium Potassium Chloride Carbon Dioxide Anion Gap BUN Creatinine Est GFR ( Amer) Est GFR (Non-Af Amer) POC Glucose (mg/dL) > 500 H* > 500 H* Random Glucose Calcium Magnesium Total Bilirubin AST ALT Alkaline Phosphatase Total Protein Albumin Globulin Albumin/Globulin Ratio - Imaging and Cardiology Chest x-ray Status: Report reviewed by me (INCREASED INTERSTITIAL MARKINGS LT. LUNG) Assessment & Plan (1) Pneumonia Assessment and Plan: MRSA SCREEN. ESR CRP. ATYPICAL TITERS. SPUTUM gRAM STAIN AND CULTURE. START iv VIBRAMYCIN 100 MG iv PIGGYBACK EVERY 12 HOURLY.09/02/18 FOLLOW-UP CULTURES TO ADJUST ANTIBIOTICS. CASE DISCUSSED WITH STAFF/PMD. Status: Acute (2) COPD with exacerbation Assessment and Plan: PULMONARY TOILET. on Solu-Medrol 40 mg every 8 hourly as per PMD. NEBULIZER THERAPY PER PMD. Status: Acute (3) Diabetes Assessment and Plan: HEMOGLOBIN A1C ADEQUATE DIABETIC CONTROL. Status: Chronic Priority: High (4) Renal insufficiency Assessment and Plan: IV HYDRATION ASPER PMD. MONITOR BUN AND CREATININE CLOSELY. Status: Acute (5) Rheumatoid arthritis Status: Acute
[2018-09-04] MEDS: (Novolog) Insulin Aspart, Recombinant 100 u/ml 10 ml vial SC SCH ×12 (00:38→23:22)
[2018-09-04] MEDS: Albuterol-Ipratrop 3 mg / 0.5 (3 ml) UD INH SCH ×6 (01:25→20:00)
[2018-09-04] MEDS: MethylPREDNISolone 40 mg Vial IV SCH ×3 (02:14→21:45)
[2018-09-04 09:05] LABS: BASO % 0.2 % (0.0-2.0); LYMPH # 0.5 K/uL (1.0-4.3); MEAN CELL VOLUME 87.8 fL (81.0-99.0); MEAN CORPUSCULAR HEMOGLOBIN 29.9 pg (27.0-31.0); MONO # 0.2 K/uL (0.0-0.8); MONO % 2.2 % (0.0-10.0); NEUT # 9.5 K/uL (1.8-7.0); NEUT % 92.6 % (50.0-75.0); PLATELET COUNT 155 K/uL (130-400); RBC 3.36 Mil/uL (3.80-5.20); RED CELL DISTRIBUTION WIDTH 13.4 % (11.5-14.5)
[2018-09-04 09:19] LABS: WHITE BLOOD COUNT 10.3 K/uL (4.8-10.8)
[2018-09-04 09:25] LABS: ALB/GLOB RATIO 1.3 (1.0-2.1); ALBUMIN 3.5 g/dL (3.5-5.0); ALT/SGPT 23 U/L (9-52); AST/SGOT 21 U/L (14-36); BLOOD UREA NITROGEN 76 mg/dL (7-17); CALCIUM 6.9 mg/dl (8.6-10.4); GFR NON-AFRICAN AMERICAN 26
[2018-09-04 09:51] LABS: LYMPHOCYTE 4 % (20-40); MONOCYTE 2 % (0-10); NEUTROPHIL 94 % (50-75); NUCLEATED RED BLOOD CELL 1 % (0-0); PLATELET ESTIMATE NORMAL (NORMAL); TOTAL CELLS COUNTED 100
[2018-09-04 09:52] LABS: HYPOCHROMIC SLIGHT
[2018-09-04] MEDS ORDERED: Influenza Vaccine 60 MCG/0.5 ML SYR (3 yr & up) IM ONE ×2 (10:00→18:58)
[2018-09-04] MEDS: Insulin Detemir 100 units/ml Vial (Levemir) SC SCH (10:22)
[2018-09-04 11:40] LABS: ERYTHROCYTE SEDIMENTATION RATE 60 mm/hr (0-20)
[2018-09-04] MEDS: Sodium Chloride 0.9% 1,000 ML IV SCH (12:45)
--- NOTE | 2018-09-04 13:30 | CP.PCM.PN ---
Subjective - Date & Time of Evaluation Date of Evaluation: 09/04/18 Time of Evaluation: 13:26 - Subjective Subjective: CHIEF COMPLAINTS TODAY : LESS WHEEZING AND SOB SUGARS ARE UP ROS. HEENT : N. Resp : No cough, wheezing ,pleuritic CP ,or hemoptysis Cardio : No anginal CP, PND, orthopnea, palpitation GI : No abd.pain, n/v ,diarrhea or GI bleeding . WINTERIZER : No headache, vertigo, focal deficit. Musculoskel : No joint swelling , Derm : No rash Psych : Normal affect. Ext : No swelling ,calf pain PE. Pt. is alert awake in no distress. V.S As noted in the chart Head ,ear nose,throat and eyes : Normal. Neck : Supple with normal carotids. Lungs: Clear air entry. CARLO RONCHI AND EXT. WHEEZE Heart : S1 & S2 normal with S4. No murmur. Abd : Soft non tender with normal bowel sounds. Neuro : Moves all ext. with no localized deficit. Ext : No edema with intact pulses.Non tender calves Derm : No rashes or decubitus ulcer. LABS/RADIOLOGY: BUN 76, CR 2.0 ASSESSMENT/PLAN : ACCUCHECK Q 2HRS AND SUGARS ARE IN 300S INCREASE LEVEMIR 40 U IV AB STEROID DECREASE TOQ12H ACUTE ON CH. RENAL FAILURE IMPROVING WITH FLUIDS Objective - Vital Signs/Intake and Output Vital Signs (last 24 hours): Temp Pulse Resp BP Pulse Ox 97.7 F 75 20 133/80 97 09/04/18 07:00 09/04/18 07:00 09/04/18 07:00 09/04/18 10:25 09/04/18 07:00 Intake and Output: 09/04/18 09/04/18 11:59 23:59 Intake Total 570 Balance 570 - Medications Medications: Current Medications Albuterol/Ipratropium (Duoneb 3 Mg/0.5 Mg (3 Ml) Ud) 3 ml INH RQ4 [facility] Last Admin: 09/04/18 12:49 Dose: 3 ml Carvedilol (Coreg) 25 mg PO BID [facility] Last Admin: 09/04/18 10:25 Dose: 25 mg Clopidogrel Bisulfate (Plavix) 75 mg PO DAILY [facility] Last Admin: 09/04/18 10:21 Dose: 75 mg Dextrose (Dextrose 50% Inj) 0 ml IV STAT PRN; Protocol PRN Reason: Hypoglycemia Protocol Dextrose (Glutose 15) 15 gm PO ONCE PRN; Protocol PRN Reason: Hypoglycemia Protocol Famotidine (Pepcid) 40 mg PO BID [facility] Last Admin: 09/04/18 10:21 Dose: 40 mg Glimepiride (Amaryl) 4 mg PO BIDAC [facility] Last Admin: 09/04/18 08:18 Dose: 4 mg Glucagon (Glucagen Diagnostic Kit) 1 mg IM STAT PRN; Protocol PRN Reason: Hypoglycemia Protocol Heparin Sodium (Porcine) (Heparin) 5,000 units SC BID [facility] Last Admin: 09/04/18 10:22 Dose: 5,000 units Hydralazine HCl (Apresoline) 50 mg PO TID [facility] Last Admin: 09/04/18 10:21 Dose: 50 mg Dextrose (Dextrose 5% In Water 1000 Ml) 1,000 mls @ 0 mls/hr IV .Q0M PRN; Protocol PRN Reason: Hypoglycemia Protocol Sodium Chloride (Sodium Chloride 0.9%) 1,000 mls @ 50 mls/hr IV .Q20H [facility] Last Admin: 09/04/18 12:45 Dose: 50 mls/hr Doxycycline Hyclate 100 mg/ (Sodium Chloride) 100 mls @ 100 mls/hr IVPB Q12H [facility]; Protocol Last Admin: 09/04/18 04:31 Dose: 100 mls/hr Insulin Aspart (Novolog) 0 unit SC Q2H [facility]; Protocol Last Admin: 09/04/18 12:45 Dose: 6 units Levothyroxine Sodium (Levothroid) 137 mcg PO DAILY@0630 [facility] Last Admin: 09/04/18 07:08 Dose: 137 mcg Methylprednisolone (Solu-Medrol) 40 mg IV Q8H [facility] Last Admin: 09/04/18 10:22 Dose: 40 mg Pregabalin (Lyrica) 100 mg PO BID [facility] Last Admin: 09/04/18 10:21 Dose: 100 mg Rosuvastatin Calcium (Crestor) 10 mg PO HS [facility] Last Admin: 09/03/18 21:59 Dose: 10 mg - Labs Labs: 09/04/18 08:50 09/04/18 08:50 PT 10.6 SECONDS (9.7-12.2) 09/02/18 06:00 INR 1.0 09/02/18 06:00 APTT 29 SECONDS (21-34) 09/02/18 06:00 Assessment and Plan (1) Respiratory infection Status: Acute (2) COPD with exacerbation Status: Acute (3) Diabetes Status: Chronic (4) Renal insufficiency Status: Acute (5) Pneumonia Status: Acute
--- NOTE | 2018-09-04 17:46 | CP.PCM.PN ---
Subjective - Date & Time of Evaluation Date of Evaluation: 09/04/18 Time of Evaluation: 17:46 - Subjective Subjective: afebrile, more comfortable, less cough. Objective - Vital Signs/Intake and Output Vital Signs (last 24 hours): Temp Pulse Resp BP Pulse Ox 97.5 F L 74 20 146/85 95 09/04/18 15:30 09/04/18 15:30 09/04/18 15:30 09/04/18 15:30 09/04/18 15:30 Intake and Output: 09/04/18 09/04/18 06:59 18:59 Intake Total 1070 350 Balance 1070 350 - Medications Medications: Current Medications Albuterol/Ipratropium (Duoneb 3 Mg/0.5 Mg (3 Ml) Ud) 3 ml INH RQ4 [facility] Last Admin: 09/04/18 16:53 Dose: 3 ml Carvedilol (Coreg) 25 mg PO BID [facility] Last Admin: 09/04/18 10:25 Dose: 25 mg Clopidogrel Bisulfate (Plavix) 75 mg PO DAILY [facility] Last Admin: 09/04/18 10:21 Dose: 75 mg Dextrose (Dextrose 50% Inj) 0 ml IV STAT PRN; Protocol PRN Reason: Hypoglycemia Protocol Dextrose (Glutose 15) 15 gm PO ONCE PRN; Protocol PRN Reason: Hypoglycemia Protocol Famotidine (Pepcid) 40 mg PO BID [facility] Last Admin: 09/04/18 10:21 Dose: 40 mg Glimepiride (Amaryl) 4 mg PO BIDAC [facility] Last Admin: 09/04/18 16:37 Dose: 4 mg Glucagon (Glucagen Diagnostic Kit) 1 mg IM STAT PRN; Protocol PRN Reason: Hypoglycemia Protocol Heparin Sodium (Porcine) (Heparin) 5,000 units SC BID [facility] Last Admin: 09/04/18 10:22 Dose: 5,000 units Hydralazine HCl (Apresoline) 50 mg PO TID [facility] Last Admin: 09/04/18 14:44 Dose: 50 mg Dextrose (Dextrose 5% In Water 1000 Ml) 1,000 mls @ 0 mls/hr IV .Q0M PRN; Pro tocol PRN Reason: Hypoglycemia Protocol Sodium Chloride (Sodium Chloride 0.9%) 1,000 mls @ 50 mls/hr IV .Q20H [facility] Last Admin: 09/04/18 12:45 Dose: 50 mls/hr Doxycycline Hyclate 100 mg/ (Sodium Chloride) 100 mls @ 100 mls/hr IVPB Q12H [facility]; Protocol Last Admin: 09/04/18 04:31 Dose: 100 mls/hr Insulin Aspart (Novolog) 0 unit SC Q2H [facility]; Protocol Last Admin: 09/04/18 16:37 Dose: 8 units Insulin Detemir (Levemir) 40 unit SC DAILY [facility] Levothyroxine Sodium (Levothroid) 137 mcg PO DAILY@0630 [facility] Last Admin: 09/04/18 07:08 Dose: 137 mcg Methylprednisolone (Solu-Medrol) 40 mg IV Q12 [facility] Pregabalin (Lyrica) 100 mg PO BID [facility] Last Admin: 09/04/18 10:21 Dose: 100 mg Rosuvastatin Calcium (Crestor) 10 mg PO HS [facility] Last Admin: 09/03/18 21:59 Dose: 10 mg - Labs Labs: 09/04/18 08:50 09/04/18 08:50 PT 10.6 SECONDS (9.7-12.2) 09/02/18 06:00 INR 1.0 09/02/18 06:00 APTT 29 SECONDS (21-34) 09/02/18 06:00 - Constitutional Appears: No Acute Distress - Head Exam Head Exam: NORMAL INSPECTION - Eye Exam Eye Exam: EOMI, PERRL - ENT Exam ENT Exam: Normal Oropharynx - Neck Exam Neck Exam: Normal Inspection - Respiratory Exam Respiratory Exam: Wheezes (less), NORMAL BREATHING PATTERN. absent: Accessory Muscle Use, Chest Wall Tenderness - Cardiovascular Exam Cardiovascular Exam: REGULAR RHYTHM, +S1, +S2 - GI/Abdominal Exam GI & Abdominal Exam: Soft, Normal Bowel Sounds. absent: Organomegaly - Extremities Exam Extremities Exam: absent: Calf Tenderness, Pedal Edema (b/l transmetatarsal amputation.wounds healed.) - Back Exam Back Exam: NORMAL INSPECTION. absent: CVA tenderness (L), CVA tenderness (R) - Neurological Exam Neurological Exam: Alert, Awake, CN II-XII Intact, Normal Gait, Oriented x3, Reflexes Normal - Skin Skin Exam: Normal Color, Warm Assessment and Plan (1) Pneumonia Assessment & Plan: improving. CXR IN AM. CONTINUE IV ABX. Status: Acute (2) COPD with exacerbation Assessment & Plan: IMPROVING . AWAIT SPUTUM CULTURES ON IV SOLUMEDROL 40MG IV Q 12HRLY TAPER STEROIDS. F/U CXR IN AM Status: Acute (3) Diabetes Assessment & Plan: ADEQUATE CONTROL OF BLOOD SUGARS. TAPER STEROIDS. Status: Chronic (4) Renal insufficiency Status: Acute (5) Rheumatoid arthritis Status: Acute
--- NOTE | 2018-09-04 23:01 | CARD ---
APPROVED REPORT Date of service: 09/02/2018 EKG Measurement Heart [id number] OR [id number] [id number] <Conclusion> Normal sinus rhythm Voltage criteria for left ventricular hypertrophy Nonspecific ST T abnormality Abnormal ECG
[2018-09-05] MEDS: Albuterol-Ipratrop 3 mg / 0.5 (3 ml) UD INH SCH ×5 (00:30→15:55)
[2018-09-05] MEDS: (Novolog) Insulin Aspart, Recombinant 100 u/ml 10 ml vial SC SCH ×8 (00:50→13:43)
[2018-09-05] MEDS: Sodium Chloride 0.9% 1,000 ML IV SCH (03:54)
[2018-09-05 08:43] LABS: EOS % 0.1 % (0.0-4.0); HEMOGLOBIN 8.9 g/dL (11.0-16.0); LYMPH # 0.5 K/uL (1.0-4.3)
[2018-09-05 08:53] LABS: BASO % 0.2 % (0.0-2.0); LYMPH % 7.3 % (20.0-40.0); MEAN CELL VOLUME 88.2 fL (81.0-99.0); MEAN CORPUSCULAR HEMOGLOBIN 29.5 pg (27.0-31.0); MEAN CORPUSCULAR HGB CONC 33.5 g/dL (33.0-37.0); MEAN PLATELET VOLUME 11.6 fL (7.2-11.7); MONO # 0.2 K/uL (0.0-0.8); MONO % 3.4 % (0.0-10.0); NEUT # 6.2 K/uL (1.8-7.0); NRBC % 0.1 % (0.0-2.0); PLATELET COUNT 130 K/uL (130-400); RBC 3.03 Mil/uL (3.80-5.20); RED CELL DISTRIBUTION WIDTH 13.9 % (11.5-14.5); WHITE BLOOD COUNT 6.9 K/uL (4.8-10.8)
[2018-09-05 08:59] LABS: ALB/GLOB RATIO 1.3 (1.0-2.1); ALBUMIN 3.1 g/dL (3.5-5.0); CALCIUM 6.5 mg/dl (8.6-10.4)
[2018-09-05] MEDS ORDERED: Insulin Detemir 100 units/ml Vial (Levemir) SC SCH (10:00)
[2018-09-05 10:06] LABS: BANDS 2 % (0-2); LYMPHOCYTE 7 % (20-40); MONOCYTE 3 % (0-10); NEUTROPHIL 88 % (50-75); TOTAL CELLS COUNTED 100
[2018-09-05 10:07] LABS: ANISOCYTOSIS SLIGHT; HYPOCHROMIC SLIGHT; PLATELET ESTIMATE NORMAL (NORMAL); POIKILOCYTOSIS SLIGHT; TARGET CELLS SLIGHT
[2018-09-05] MEDS: MethylPREDNISolone 40 mg Vial IV SCH (10:39)
--- NOTE | 2018-09-05 11:16 | RAD ---
Date of service: 09/05/2018 PROCEDURE: CHEST RADIOGRAPH, 1 VIEW HISTORY: PNEUMONIA LT SIDE COMPARISON: 09/02/2018 FINDINGS: LUNGS: Resolution left lower lobe infiltrate. PLEURA: No pneumothorax or pleural fluid seen. CARDIOVASCULAR: No aortic atherosclerotic calcification present. No radiographic findings to suggest acute or significant cardiovascular disease. OSSEOUS STRUCTURES: No significant abnormalities. VISUALIZED UPPER ABDOMEN: Normal. OTHER FINDINGS: None. IMPRESSION: No active pulmonary disease. Resolution of findings left lower lobe seen previously.
--- NOTE | 2018-09-05 14:14 | CP.PCM.DIS ---
Provider - Provider Date of Admission: 09/02/18 06:40 Attending physician: Mahad Pacheco MD Time Spent in preparation of Discharge (in minutes): 35 Diagnosis - Discharge Diagnosis (1) Respiratory infection Status: Acute (2) COPD with exacerbation Status: Acute (3) Diabetes Status: Chronic Priority: High (4) Renal insufficiency Status: Acute (5) Pneumonia Status: Acute Hospital Course - Lab Results Lab Results: Micro Results 09/02/18 07:05 Blood-Venous Blood Culture - Preliminary NO GROWTH AFTER 3 DAYS 09/02/18 20:10 Naris MRSA Culture - Final MRSA NOT DETECTED Most Recent Lab Values WBC 6.9 K/uL (4.8-10.8) 09/05/18 08:35 RBC 3.03 Mil/uL (3.80-5.20) L 09/05/18 08:35 Hgb 8.9 g/dL (11.0-16.0) L 09/05/18 08:35 Hct 26.7 % (34.0-47.0) L 09/05/18 08:35 MCV 88.2 fL (81.0-99.0) 09/05/18 08:35 MCH 29.5 pg (27.0-31.0) 09/05/18 08:35 MCHC 33.5 g/dL (33.0-37.0) 09/05/18 08:35 RDW 13.9 % (11.5-14.5) 09/05/18 08:35 Plt Count 130 K/uL (130-400) 09/05/18 08:35 MPV 11.6 fL (7.2-11.7) 09/05/18 08:35 Neut % (Auto) 89.0 % (50.0-75.0) H 09/05/18 08:35 Lymph % (Auto) 7.3 % (20.0-40.0) L 09/05/18 08:35 [place] % (Auto) 3.4 % (0.0-10.0) 09/05/18 08:35 Eos % (Auto) 0.1 % (0.0-4.0) 09/05/18 08:35 Baso % (Auto) 0.2 % (0.0-2.0) 09/05/18 08:35 Neut # (Auto) 6.2 K/uL (1.8-7.0) 09/05/18 08:35 Lymph # (Auto) 0.5 K/uL (1.0-4.3) L 09/05/18 08:35 [place] # (Auto) 0.2 K/uL (0.0-0.8) 09/05/18 08:35 Eos # (Auto) 0.0 K/uL (0.0-0.7) 09/05/18 08:35 Baso # (Auto) 0.0 K/uL (0.0-0.2) 09/05/18 08:35 Neutrophils % (Manual) 88 % (50-75) H 09/05/18 08:35 Band Neutrophils % 2 % (0-2) 09/05/18 08:35 Lymphocytes % (Manual) 7 % (20-40) L 09/05/18 08:35 Monocytes % (Manual) 3 % (0-10) 09/05/18 08:35 Nucleated RBC % 1 % (0-0) H 09/04/18 08:50 Toxic Granulation Present 09/03/18 09:24 Platelet Estimate Normal (NORMAL) 09/05/18 08:35 Large Platelets Present 09/03/18 09:24 Polychromasia Slight 09/03/18 09:24 Hypochromasia (manual) Slight 09/05/18 08:35 Poikilocytosis (manual Slight 09/05/18 08:35 Anisocytosis (manual) Slight 09/05/18 08:35 Target Cells Slight 09/05/18 08:35 Ovalocytes Slight 09/03/18 09:24 ESR 60 mm/hr (0-20) H 09/04/18 08:50 PT 10.6 SECONDS (9.7-12.2) 09/02/18 06:00 INR 1.0 09/02/18 06:00 APTT 29 SECONDS (21-34) 09/02/18 06:00 D-Dimer, Quantitative 204 ng/mlDDU (0-243) 09/02/18 06:00 Puncture Site Rba 09/02/18 06:40 pCO2 46 mm/Hg (35-45) H 09/02/18 06:40 pO2 92 mm/Hg (80-100) 09/02/18 06:40 HCO3 26.7 mmol/L (21-28) 09/02/18 06:40 ABG pH 7.39 (7.35-7.45) 09/02/18 06:40 ABG Total CO2 29.2 mmol/L (22-28) H 09/02/18 06:40 ABG O2 Saturation 96.9 % (95-98) 09/02/18 06:40 ABG Base Excess 2.3 mmol/L (-2.0-3.0) 09/02/18 06:40 ABG Hemoglobin 11.6 g/dL (11.7-17.4) L 09/02/18 06:40 ABG Carboxyhemoglobin 1.5 % (0.5-1.5) 09/02/18 06:40 POC ABG HHb (Measured) 3.0 % (0.0-5.0) 09/02/18 06:40 ABG Methemoglobin 1.3 % (0.0-3.0) 09/02/18 06:40 Stalin Test Pos 09/02/18 06:40 A-a O2 Difference 86.0 mm/Hg 09/02/18 06:40 Respiratory Index 0.9 09/02/18 06:40 Hgb O2 Saturation 94.2 % (95.0-98.0) L 09/02/18 06:40 FiO2 33.0 % 09/02/18 06:40 Sodium 133 mmol/L (132-148) 09/05/18 08:35 Potassium 3.9 mmol/L (3.6-5.2) 09/05/18 08:35 Chloride 105 mmol/L (98-107) 09/05/18 08:35 Carbon Dioxide 18 mmol/L (22-30) L 09/05/18 08:35 Anion Gap 13 (10-20) 09/05/18 08:35 BUN 69 mg/dL (7-17) H 09/05/18 08:35 Creatinine 1.9 mg/dL (0.7-1.2) H 09/05/18 08:35 Est GFR ( Amer) 33 09/05/18 08:35 Est GFR (Non-Af Amer) 27 09/05/18 08:35 POC Glucose (mg/dL) 297 mg/dL (65-110) H 09/05/18 08:14 Random Glucose 322 mg/dL (65-105) H 09/05/18 08:35 Calcium 6.5 mg/dl (8.6-10.4) L 09/05/18 08:35 Magnesium 1.8 mg/dL (1.6-2.3) 09/05/18 08:35 Total Bilirubin 0.2 mg/dL (0.2-1.3) 09/05/18 08:35 AST 18 U/L (14-36) 09/05/18 08:35 ALT 24 U/L (9-52) 09/05/18 08:35 Alkaline Phosphatase 122 U/L (38-126) 09/05/18 08:35 Troponin I < 0.0120 ng/mL (0.00-0.120) 09/02/18 06:00 C-Reactive Protein < 5.00 mg/L (0.0-9.9) 09/04/18 08:50 NT-Pro-B Natriuret Pep 196 pg/mL (0-900) 09/02/18 06:00 Total Protein 5.4 g/dL (6.3-8.3) L 09/05/18 08:35 Albumin 3.1 g/dL (3.5-5.0) L 09/05/18 08:35 Globulin 2.3 gm/dL (2.2-3.9) 09/05/18 08:35 Albumin/Globulin Ratio 1.3 (1.0-2.1) 09/05/18 08:35 Mycoplasma pneumon IgM Negative (NEGATIVE) 09/04/18 08:50 - Hospital Course Hospital Course: 57 years old woman admitted with acute shortness of breath cough and expectoration Patient states that last 2 days patient been complaining of cough expectoration and wheezing shortness of breath. On the day of admission patient was unable to breathe at rest presented to [facility] ER. Chest x-ray showed patchy infiltrate in the left lower lobe. Patient was given multiple bronchodilators without much improvement and patient was admitted for the treatment Past history Patient has multiple medical problems patient has a history of COPD coronary artery disease history of severe peripheral vascular disease with angioplasty and stent and left toe amputation history of type 2 diabetes history of hypertension and cholesterolemia depression history of chronic renal insufficiency secondary to diabetes hypertension and history of thyroid cancer. Patient has multiple admissions in the hospital in the past. Personal history denies smoking and alcohol PT. IMPROVED ON IV AB AND NEB AND STEROIDS REPEAT CXR SHOWED RESOLUTION OF LL PNEUMONIA SUGAR WERE UP SEC TO SEPSIS AND STEROIDS MANAGED WITH INSULIN CURRENTLY STABLE ON DISCHARGE Discharge Exam - Head Exam Head Exam: NORMAL INSPECTION Discharge Plan - Follow Up Plan Condition: STABLE Disposition: HOME/ ROUTINE
--- NOTE | 2018-09-05 14:14 | CP.PCM.PN ---
Subjective - Date & Time of Evaluation Date of Evaluation: 09/05/18 Time of Evaluation: 14:14 - Subjective Subjective: afebrile, denies cough or SOB WENT FOR CXR. LABS REVIEWED. Objective - Vital Signs/Intake and Output Vital Signs (last 24 hours): Temp Pulse Resp BP Pulse Ox 97.6 F 76 18 132/81 93 L 09/05/18 07:00 09/05/18 07:00 09/05/18 07:00 09/05/18 10:49 09/05/18 07:00 - Medications Medications: Current Medications Albuterol/Ipratropium (Duoneb 3 Mg/0.5 Mg (3 Ml) Ud) 3 ml INH RQ4 [facility] Last Admin: 09/05/18 11:36 Dose: 3 ml Carvedilol (Coreg) 25 mg PO BID [facility] Last Admin: 09/05/18 10:49 Dose: 25 mg Clopidogrel Bisulfate (Plavix) 75 mg PO DAILY [facility] Last Admin: 09/05/18 10:39 Dose: 75 mg Dextrose (Dextrose 50% Inj) 0 ml IV STAT PRN; Protocol PRN Reason: Hypoglycemia Protocol Dextrose (Glutose 15) 15 gm PO ONCE PRN; Protocol PRN Reason: Hypoglycemia Protocol Famotidine (Pepcid) 40 mg PO BID [facility] Last Admin: 09/05/18 10:39 Dose: 40 mg Glimepiride (Amaryl) 4 mg PO BIDAC [facility] Last Admin: 09/05/18 08:42 Dose: 4 mg Glucagon (Glucagen Diagnostic Kit) 1 mg IM STAT PRN; Protocol PRN Reason: Hypoglycemia Protocol Hydralazine HCl (Apresoline) 50 mg PO TID [facility] Last Admin: 09/05/18 13:43 Dose: 50 mg Doxycycline Hyclate 100 mg/ (Sodium Chloride) 100 mls @ 100 mls/hr IVPB Q12H [facility]; Protocol Last Admin: 09/05/18 05:14 Dose: 100 mls/hr Insulin Aspart (Novolog) 0 unit SC Q2H [facility]; Protocol Last Admin: 09/05/18 13:43 Dose: 6 units Insulin Detemir (Levemir) 40 unit SC DAILY [facility] Last Admin: 09/05/18 10:38 Dose: 40 unit Levothyroxine Sodium (Levothroid) 137 mcg PO DAILY@0630 [facility] Last Admin: 09/05/18 06:37 Dose: 137 mcg Methylprednisolone (Solu-Medrol) 40 mg IV Q12 [facility] Last Admin: 09/05/18 10:39 Dose: 40 mg Pregabalin (Lyrica) 100 mg PO BID [facility] Last Admin: 09/05/18 10:39 Dose: 100 mg Rosuvastatin Calcium (Crestor) 10 mg PO HS [facility] Last Admin: 09/04/18 21:45 Dose: 10 mg - Labs Labs: 09/05/18 08:35 09/05/18 08:35 PT 10.6 SECONDS (9.7-12.2) 09/02/18 06:00 INR 1.0 09/02/18 06:00 APTT 29 SECONDS (21-34) 09/02/18 06:00 - Constitutional Appears: No Acute Distress - Head Exam Head Exam: NORMAL INSPECTION - Eye Exam Eye Exam: EOMI, PERRL - ENT Exam ENT Exam: Normal Oropharynx - Neck Exam Neck Exam: Normal Inspection - Respiratory Exam Respiratory Exam: Clear to Ausculation Bilateral. absent: Wheezes - Cardiovascular Exam Cardiovascular Exam: REGULAR RHYTHM, +S1, +S2 - GI/Abdominal Exam GI & Abdominal Exam: Soft, Normal Bowel Sounds - Extremities Exam Extremities Exam: Pedal Edema (1+). absent: Calf Tenderness - Neurological Exam Neurological Exam: Alert, Awake, CN II-XII Intact, Oriented x3, Reflexes Normal - Psychiatric Exam Psychiatric exam: Normal Mood - Skin Skin Exam: Normal Color, Warm Assessment and Plan (1) Pneumonia Assessment & Plan: CXR; RESOLVED LLL INFILTRATE. ON IV DOXYCYCLINE D/C IV ABX PO DOXYCYCLINE 100MG PO BID X 5 DAYS MORE TAPER OFF STEROIDS. CASE DISCUSSED WITH STAFF. Status: Acute (2) COPD with exacerbation Status: Acute (3) Diabetes Status: Chronic (4) Renal insufficiency Assessment & Plan: IMPROVING. Status: Acute (5) Rheumatoid arthritis Assessment & Plan: PT ON FLUCINOMIDE 20MG PO OD DAILYAS PER HER RHEUMATOLOGY. WATCH H/H Status: Acute
[2018-09-05] MEDS ORDERED: (Novolog) Insulin Aspart, Recombinant 100 u/ml 10 ml vial SC SCH (16:30)
[2018-09-05 16:44] VITALS: BP 146/78; PULSE 78; RESP 20; TEMP 97.5; O2SAT 97
--- NOTE | 2018-09-05 17:10 | CP.PCM.PN ---
Subjective - Date & Time of Evaluation Date of Evaluation: 09/05/18 Time of Evaluation: 17:10 - Subjective Subjective: PATIENT SEEN AND EXAMINED AT THE BEDSIDE Objective - Vital Signs/Intake and Output Vital Signs (last 24 hours): Temp Pulse Resp BP Pulse Ox 97.5 F L 78 20 146/78 97 09/05/18 15:25 09/05/18 15:25 09/05/18 15:25 09/05/18 15:25 09/05/18 15:25 Intake and Output: 09/05/18 09/05/18 06:59 18:59 Intake Total 400 Balance 400 - Medications Medications: Current Medications Albuterol/Ipratropium (Duoneb 3 Mg/0.5 Mg (3 Ml) Ud) 3 ml INH RQ4 [facility] Last Admin: 09/05/18 15:55 Dose: 3 ml Carvedilol (Coreg) 25 mg PO BID [facility] Last Admin: 09/05/18 10:49 Dose: 25 mg Clopidogrel Bisulfate (Plavix) 75 mg PO DAILY [facility] Last Admin: 09/05/18 10:39 Dose: 75 mg Dextrose (Dextrose 50% Inj) 0 ml IV STAT PRN; Protocol PRN Reason: Hypoglycemia Protocol Dextrose (Glutose 15) 15 gm PO ONCE PRN; Protocol PRN Reason: Hypoglycemia Protocol Famotidine (Pepcid) 40 mg PO BID [facility] Last Admin: 09/05/18 10:39 Dose: 40 mg Glimepiride (Amaryl) 4 mg PO BIDAC [facility] Last Admin: 09/05/18 08:42 Dose: 4 mg Glucagon (Glucagen Diagnostic Kit) 1 mg IM STAT PRN; Protocol PRN Reason: Hypoglycemia Protocol Hydralazine HCl (Apresoline) 50 mg PO TID [facility] Last Admin: 09/05/18 13:43 Dose: 50 mg Doxycycline Hyclate 100 mg/ (Sodium Chloride) 100 mls @ 100 mls/hr IVPB Q12H [facility]; Protocol Last Admin: 09/05/18 05:14 Dose: 100 mls/hr Insulin Aspart (Novolog) 0 unit SC ACHS [facility]; Protocol Insulin Detemir (Levemir) 40 unit SC DAILY [facility] Last Admin: 09/05/18 10:38 Dose: 40 unit Levothyroxine Sodium (Levothroid) 137 mcg PO DAILY@0630 [facility] Last Admin: 09/05/18 06:37 Dose: 137 mcg Methylprednisolone (Solu-Medrol) 40 mg IV Q12 [facility] Last Admin: 09/05/18 10:39 Dose: 40 mg Pregabalin (Lyrica) 100 mg PO BID [facility] Last Admin: 09/05/18 10:39 Dose: 100 mg Rosuvastatin Calcium (Crestor) 10 mg PO HS [facility] Last Admin: 09/04/18 21:45 Dose: 10 mg - Labs Labs: 09/05/18 08:35 09/05/18 08:35 PT 10.6 SECONDS (9.7-12.2) 09/02/18 06:00 INR 1.0 09/02/18 06:00 APTT 29 SECONDS (21-34) 09/02/18 06:00 Assessment and Plan - Assessment and Plan (Free Text) Assessment: FOLLOW UP WITH DR LARIOS IN HIS OFFICE ----CALL FOR APPOINTMENT FOLLOW UP WITH DR QUINTEROS IN HER OFFICE ----CALL FOR APPOINTMENT CONTINUE HOME MEDICATION NEW PRESCRIPTION GIVEN DOXY 100 MG BY MOUTH EVERY 12 HOURS FOR 10 DAYS FLORASTOR 250 MG BY MOUTH TWICE A DAY FOR 10 DAYS PREDNISONE 10 MG BY MOUTH DAILY FOR 6 [address] ACT[address]ITY TOLERATED CALL DR LARIOS OR GO TO THE EMERGENCY ROOM IF SYMPTOM RETURN OR WORSENING
== END 2018-09-05 20:00 | disposition home or self-care (01) | DRG 190 ==
LOC: C.ER 05:18 → C.6T 06:40
PROVIDERS: ADMIT Internal Medicine Cardiovascular Disease; ATTEND Internal Medicine Cardiovascular Disease
DX: J44.0 Chronic obstructive pulmonary disease with (acute) lower respiratory infection (principal); J18.9 Pneumonia, unspecified organism; I13.0 Hypertensive heart and chronic kidney disease with heart failure and stage 1 through stage 4 chronic kidney disease, or unspecified chronic kidney disease; J44.1 Chronic obstructive pulmonary disease with (acute) exacerbation; E11.22 Type 2 diabetes mellitus with diabetic chronic kidney disease; I25.10 Atherosclerotic heart disease of native coronary artery without angina pectoris; E11.40 Type 2 diabetes mellitus with diabetic neuropathy, unspecified; N18.9 Chronic kidney disease, unspecified; E87.8 Other disorders of electrolyte and fluid balance, not elsewhere classified; E89.0 Postprocedural hypothyroidism; I50.9 Heart failure, unspecified; M06.9 Rheumatoid arthritis, unspecified; E78.5 Hyperlipidemia, unspecified; E78.00 Pure hypercholesterolemia, unspecified; G47.30 Sleep apnea, unspecified; F41.9 Anxiety disorder, unspecified; M19.90 Unspecified osteoarthritis, unspecified site; Z85.850 Personal history of malignant neoplasm of thyroid; Z79.4 Long term (current) use of insulin; Z95.5 Presence of coronary angioplasty implant and graft; Z89.412 Acquired absence of left great toe; Z89.422 Acquired absence of other left toe(s); Z89.421 Acquired absence of other right toe(s)

== ENCOUNTER 2018-12-14 10:34 | Outpatient (CLI) | payer MEDICARE | END 2018-12-14 10:35 | disposition home or self-care (01) | LOC: C.USIC 10:34 | DX: N18.3 Chronic kidney disease, stage 3 (moderate) (principal) ==